=== PATIENT | male | born 1960 | race Caucasian/White ===

== ENCOUNTER 2017-05-25 11:25 | Emergency (ER) | payer OTHER ==
[~2017-05-25] VITALS: Ht 175.3 cm; Wt 104.3 kg
[~2017-05-25 11:25] MED LIST: BENADRYL25 MG PO; CLINDAMYCIN HC300 MG PO; FENOFIBRATE120 MG PO; FENOFIBRATE160 MG PO; HYDROXYZINE HCL25 MG PO; LISINOPRIL-HCT1 EAC1 PO; LISINOPRIL20 MG PO; MEDROL4 M1 PO; MELOXICAM15 MG PO; METFORMIN HCL500 MG PO; MOBIC7.5 MG PO; NAPROSYN500 MG PO; NAPROXEN500 MG PO; NICORETTE2 MG MM; NICOTINE PATCH1 EACH TD; NORCO 10-325 T1 EACH PO; OMEGA 3 1,0001 EACH PO; OXYCODONE HCL10 MG PO; PERCOCET 5-3251 EACH PO; PERCOCET 7.5-31 EACH PO; PHENERGAN25 MG RC; PROPRANOLOL HC120 MG PO; PROPRANOLOL HCL20 MG PO; ZOFRAN4 MG PO
--- NOTE | 2017-05-25 14:24 | EKG ---
[facility] [address] [facility] [place] [address] Signed Normal sinus rhythm Inferior infarct , possibly acute Possible Anterior infarct , age undetermined ACUTE [place] / STEMI Consider right ventricular involvement in acute inferior infarct Abnormal ECG No previous ECGs available Confirmed by PAUL SÁNCHEZ MD ([id number]) on 05/25/2017 2:23:52 PM Electronically Signed By: PAUL SÁNCHEZ MD 05/25/17 1424 PATIENT NAME: RICHELLEERIS MATT Electrocardiogram DATE OF : 58 PHYSICIAN: PAUL SÁNCHEZ MD REPORT #: [id number] REPORT IS CONFIDENTIAL AND NOT TO BE RELEASED WITHOUT AUTHORIZATION
--- NOTE | 2017-05-25 14:25 | EKG ---
[facility] [address] [facility] [place] [address] Signed Sinus tachycardia Inferior infarct (cited on or before 25-MAY-2017) Anterolateral infarct (cited on or before 25-MAY-2017) ACUTE [place] / STEMI Consider right ventricular involvement in acute inferior infarct Abnormal ECG When compared with ECG of 25-MAY-2017 11:30, (Unconfirmed) Serial changes of evolving Anterior infarct present Serial changes of evolving Anterolateral infarct present Confirmed by PAUL SÁNCHEZ MD ([id number]) on 05/25/2017 2:25:14 PM Electronically Signed By: PAUL SÁNCHEZ MD 05/25/17 1425 PATIENT NAME: ERIS PEOPLES Electrocardiogram DATE OF : 58 PHYSICIAN: PAUL SÁNCHEZ MD REPORT #: [id number] REPORT IS CONFIDENTIAL AND NOT TO BE RELEASED WITHOUT AUTHORIZATION
== END 2017-05-25 12:10 | disposition short-term general hospital (02) ==
LOC: ED 11:25
DX: I21.19 ST elevation (STEMI) myocardial infarction involving other coronary artery of inferior wall (principal); I10 Essential (primary) hypertension; E11.9 Type 2 diabetes mellitus without complications; F17.200 Nicotine dependence, unspecified, uncomplicated; Z88.0 Allergy status to penicillin; Z88.5 Allergy status to narcotic agent; Z88.8 Allergy status to other drugs, medicaments and biological substances; Z79.899 Other long term (current) drug therapy; Z79.84 Long term (current) use of oral hypoglycemic drugs; Z98.890 Other specified postprocedural states
CPT/HCPCS: 71010; 80053; 84484; 85025; 93005; 93010; 96374; 96375; 99285; J1644

== ENCOUNTER 2018-01-05 07:58 | Emergency (ER) | payer MEDICAID ==
[~2018-01-05] VITALS: Ht 175.3 cm; Wt 104.3 kg
[2018-01-05] MEDS ORDERED: LISINOPRIL2.5 MG PO (08:40)
[2018-01-05] MEDS ORDERED: CLOPIDOGREL75 MG PO (08:40)
[2018-01-05] MEDS ORDERED: METOPROLOL SUCC25 MG PO (08:41)
[2018-01-05] MEDS ORDERED: NITROGLYCERIN0.4 MG SL (08:41)
[2018-01-05] MEDS ORDERED: ATORVASTATIN CA80 MG PO (08:41)
--- NOTE | 2018-01-06 12:14 | EKG ---
[facility] [address] [facility] [place] [address] Signed Normal sinus rhythm with sinus arrhythmia Left axis deviation Inferior infarct (cited on or before 25-MAY-2017) Abnormal ECG When compared with ECG of 25-MAY-2017 11:36, ST no longer elevated in Inferior leads ST no longer depressed in Anterior leads T wave inversion no longer evident in Lateral leads Confirmed by PAUL SÁNCHEZ MD ([id number]) on 01/06/2018 12:13:58 PM Electronically Signed By: PAUL SÁNCHEZ MD 01/06/18 1214 PATIENT NAME: ERIS PEOPLES Electrocardiogram DATE OF : 58 PHYSICIAN: PAUL SÁNCHEZ MD REPORT #: [id number] REPORT IS CONFIDENTIAL AND NOT TO BE RELEASED WITHOUT AUTHORIZATION
== END 2018-01-05 11:17 | disposition home or self-care (01) ==
LOC: ED 07:58
DX: R07.89 Other chest pain (principal); I10 Essential (primary) hypertension; F17.200 Nicotine dependence, unspecified, uncomplicated; E11.9 Type 2 diabetes mellitus without complications; Z88.0 Allergy status to penicillin; Z88.5 Allergy status to narcotic agent; Z88.8 Allergy status to other drugs, medicaments and biological substances; Z79.899 Other long term (current) drug therapy
CPT/HCPCS: 71045; 80053; 84484; 85025; 93005; 93010; 96360; 99284; J7040

== ENCOUNTER 2018-02-02 08:41 | Emergency (ER) | payer OTHER ==
[~2018-02-02] VITALS: Ht 175.3 cm; Wt 104.3 kg
[~2018-02-02 08:41] MED LIST changes: +ATORVASTATIN CA80 MG PO; +CLOPIDOGREL75 MG PO; +LISINOPRIL2.5 MG PO; +METOPROLOL SUCC25 MG PO; +NITROGLYCERIN0.4 MG SL
[2018-02-02] MEDS ORDERED: BENADRYL25 MG PO (09:04)
[2018-02-02] MEDS ORDERED: LEVAQUIN500 MG PO (11:47)
--- NOTE | 2018-02-03 14:03 | EKG ---
[facility] [address] [facility] [place] [address] Signed Normal sinus rhythm Inferior infarct (cited on or before 25-MAY-2017) Abnormal ECG When compared with ECG of 05-JAN-2018 08:01, No significant change was found Confirmed by PAUL SÁNCHEZ MD ([id number]) on 02/03/2018 2:02:56 PM Electronically Signed By: PAUL SÁNCHEZ MD 02/03/18 1403 PATIENT NAME: ERIS PEOPLESYDE Electrocardiogram DATE OF : 58 PHYSICIAN: PAUL SÁNCHEZ MD REPORT #: [id number] REPORT IS CONFIDENTIAL AND NOT TO BE RELEASED WITHOUT AUTHORIZATION
== END 2018-02-02 11:50 | disposition home or self-care (01) ==
LOC: ED 08:41
DX: N39.0 Urinary tract infection, site not specified (principal); I10 Essential (primary) hypertension; F17.200 Nicotine dependence, unspecified, uncomplicated; Z88.0 Allergy status to penicillin; Z88.5 Allergy status to narcotic agent; Z79.899 Other long term (current) drug therapy
CPT/HCPCS: 70450; 71046; 73110; 80053; 81001; 84484; 85025; 87077; 87088; 87186; 93005; 93010; 99284; J7030

== ENCOUNTER 2018-03-10 06:14 | Emergency (ER) | payer OTHER ==
[~2018-03-10] VITALS: Ht 175.3 cm; Wt 104.3 kg
--- OUTSIDE RECORDS SUMMARY | ~2018-03-10 | XMS | Clinical Summary ---
Demographics + + + | Address | [address] | | | [place] [address] | + + + | Home Phone | | + + + | Preferred Language | Unknown | + + + | Marital Status | | + + + | [employer] Affiliation | 1013 | + + + | Race | Unknown | + + + | Ethnic Group | Unknown | + + + Author + + + | Author | [facility] | | | and [place] | + + + | Organization | [facility] | | | and [facility] | + + + | Address | Unknown | + + + | Phone | Unavailable | + + + Support + + + + + | Name | Relationship | Address | Phone | + + + + + | Karol Peoples | ECON | [place] | | | | | [phone] | | + + + + + Care Team Providers + +------+ + | Care Project Coordinator Rn Name | Role | Phone | + +------+ + | Jude Kevin NP | PP | | + +------+ + Allergies + + + + + + | Active Allergy | Reactions | Severity | Noted | Comments | | | | | Date | | + + + + + + | Hydrocodone | Nausea And Vomiting | High | 05/25/20 | | | | | | 17 | | + + + + + + | Penicillins | Anaphylaxis | High | 05/25/20 | | | | | | 17 | | + + + + + + Current Medications + + +--------+---------+------+------+-------+ | Prescription | Sig. | Disp. | Refills | Star | End | Statu | | | | | | t | Date | s | | | | | | Date | | | + + +--------+---------+------+------+-------+ | metFORMIN | Take 500 mg by mouth | | | | | Activ | | (GLUCOPHAGE-XR) 500 | daily (with | | | | | e | | mg 24 hr tablet | breakfast). | | | | | | + + +--------+---------+------+------+-------+ | diphenhydrAMINE | Take 25 mg by mouth | | | | | Activ | | (BENADRYL) 25 mg | nightly as needed | | | | | e | | tablet | for Itching. | | | | | | + + +--------+---------+------+------+-------+ | cetirizine | Take 5 mg by mouth | | | | | Activ | | (ZYRTEC) 5 mg tablet | Daily. | | | | | e | + + +--------+---------+------+------+-------+ | aspirin 81 mg | Take 1 tablet by | 30 | 11 | 11/0 | | Activ | | chewable tablet | mouth Daily. | tablet | | 6/20 | | e | | | | | | 17 | | | + + +--------+---------+------+------+-------+ | clopidogrel | Take 1 tablet by | 30 | 11 | 11/0 | | Activ | | (PLAVIX) 75 mg | mouth Daily. | tablet | | 6/20 | | e | | tablet | | | | 17 | | | + + +--------+---------+------+------+-------+ | nitroglycerin | Place 1 tablet under | 30 | 2 | 11/0 | | Activ | | (NITROSTAT) 0.4 mg | the tongue every 5 | tablet | | 5/20 | | e | | SL tablet | minutes as needed | | | 17 | | | | | for Chest pain | | | | | | | | (persistent chest | | | | | | | | pain). | | | | | | + + +--------+---------+------+------+-------+ | lisinopril | take 1 tablet by | 90 | 3 | 01/2 | | Activ | | (PRINIVIL,ZESTRIL) | mouth once daily | tablet | | 9/20 | | e | | 2.5 MG tablet | | | | 18 | | | + + +--------+---------+------+------+-------+ | atorvaSTATin | take 1 tablet by | 90 | 3 | 03/1 | | Activ | | (LIPITOR) 80 MG | mouth every evening | tablet | | 3/20 | | e | | tablet | | | | 18 | | | + + +--------+---------+------+------+-------+ | metoprolol | take 1 tablet by | 30 | 5 | 04/3 | | Activ | | succinate | mouth once daily | tablet | | 0/20 | | e | | (TOPROL-XL) 25 mg 24 | | | | 18 | | | | hr tablet | | | | | | | + + +--------+---------+------+------+-------+ Active Problems + + + | Problem | Noted Date | + + + | Acute [place] (HCC) | 07/02/2017 | + + + Family History + +------+ + + | Relation | Name | Status | Comments | + +------+ + + | Father | | | | + +------+ + + | Mother | | | | + +------+ + + Social History + +-------+ +--------+ + | Tobacco Use | Types | Packs/Day | Years | Date | | | | | Used | | + +-------+ +--------+ + | Former Smoker | | 1 | 15 | Quit: 05/25/2017 | + +-------+ +--------+ + + + | Tobacco Cessation: Counseling Given: Yes | + + + + +---------+ + | Alcohol Use | Drinks/We | oz/Week | Comments | | | ek | | | + + +---------+ + | No | | | | + + +---------+ + + + + | Sex Assigned at | Date Recorded | | | | + + + | Not on file | | + + + Last Filed Vital Signs + + + + | Vital Sign | Reading | Time Taken | + + + + | Blood Pressure | 106/64 | 07/03/2017 1002 PST | + + + + | Pulse | 60 | 07/03/2017 1002 PST | + + + + | Temperature | 36.9 C (98.4 F) | 05/27/2017 0722 PST | + + + + | Respiratory Rate | 14 | 07/03/2017 1002 PST | + + + + | Oxygen Saturation | 92% | 05/27/2017 0722 PST | + + + + | Inhaled Oxygen | - | - | | Concentration | | | + + + + | Weight | 101 kg (222 lb 10.6 | 07/03/2017 1002 PST | | | oz) | | + + + + | Height | 172.7 cm (5' 8") | 07/03/2017 1002 PST | + + + + | Body Mass Index | 33.86 | 07/03/20171001 PST | + + + + Plan of Treatment + + + + + | Health Maintenance | Due Date | Last Done | Comments | + + + + + | Hepatitis C | | | | | Screening | 0 | | | + + + + + | Vaccine: | | | | | Dtap/Tdap/Td (1 - | 9 | | | | Tdap) | | | | + + + + + | Colorectal Cancer | | | | | Screening | 0 | | | | (Colonoscopy) | | | | + + + + + | Vaccine: Influenza | | | | | (#1) | 8 | | | + + + + + Implants + +-------+-------+ +--------+--------+--------+ | Implanted | Type | Area | Manufacture | Device | Expira | Model | | | | | r | | tion | / | | | | | | Identi | Date | Serial | | | | | | fier | | / Lot | + +-------+-------+ +--------+--------+--------+ | 2.5mm X 20mm Promus Premier | Stent | N/A: | [employer] | | 06/24/ | / | | Drug Eluting Coronary Stent | | Heart | [employer] | | 2016 | / | | SystemImplanted: Qty: 1 on | | | [employer] | | | 910 | | 05/25/2017 by Jhonatan Evans, | | | | | | | | MD | | | | | | | + +-------+-------+ +--------+--------+--------+ | 2.5mm X 8mm Promus Premier | Stent | N/A: | [employer] | | 01/15/ | / | | Drug Eluting Coronary Stent | | Heart | [employer] | | 2017 | | | SystemImplanted: Qty: 1 on | | | [employer] | | | 602 | | 05/25/2017 by Jhonatan Evans, | | | | | | | | MD | | | | | | | + +-------+-------+ +--------+--------+--------+ Results Not on filefrom Last 3 Months Insurance + +--------+ +--------+ +---------+ | Payer | Benefi | Subscriber | Type | Phone | Address | | | t Plan | ID | | | | | | / | | | | | | | Group | | | | | + +--------+ +--------+ +---------+ | [employer] | [employer] | [id number] | Medica | [phone] | MEDICAID HMO | HEALTH | | id | [id number] | | | | MDCD | | | | | | | [place]MO [place] | | | | | + +--------+ +--------+ +---------+ + +--------+ +--------+ + + | Guarantor Name | Accoun | Relation to | Date | Phone | Billing Address | | | t Type | Patient | of | | | | | | | | | | + +--------+ +--------+ + + | ERIS PEOPLES | Person | Self [birth year] Home: | [address] | | | al/[place]orio | | 1961 | [phone] [place] [address] | | | jeremy | | | [phone] | | + +--------+ +--------+ + +
--- OUTSIDE RECORDS SUMMARY | ~2018-03-10 | XMS | Clinical Summary ---
Demographics + + + | Address | [address] | | | [place] [address] | + + + | Home Phone | | + + + | Preferred Language | Unknown | + + + | Marital Status | Single | + + + | Anabaptist Affiliation | [id number] | + + + | Race | Unknown | + + + | Ethnic Group | Unknown | + + + Author + + + | Author | [employer] | + + + | Organization | [facility] | + + + | Address | Unknown | + + + | Phone | Unavailable | + + + Support + + +---------+ + | Name | Relationship | Address | Phone | + + +---------+ + | Karol Peoples | ECON | Unknown | | + + +---------+ + Care Team Providers + +------+ + | Care Edge Stainer Machine Name | Role | Phone | + +------+ + | HerberthJude Magali SOSAP | PP | | + +------+ + Allergies + + + + + + | Active Allergy | Reactions | Severity | Noted | Comments | | | | | Date | | + + + + + + | Hydrocodone | Hives | High | 01/09/20 | | | | | | 18 | | + + + + + + | Penicillins | Hives | High | 01/09/20 | | | | | | 18 | | + + + + + + Current Medications + + +--------+---------+------+------+-------+ | Prescription | Sig. | Disp. | Refills | Star | End | Statu | | | | | | t | Date | s | | | | | | Date | | | + + +--------+---------+------+------+-------+ | aspirin 81 MG | Take 81 mg by mouth | | | | | Activ | | chewable tablet | daily with | | | | | e | | | breakfast. | | | | | | + + +--------+---------+------+------+-------+ | lisinopril | Take 2.5 mg by mouth | | | | | Activ | | (ZESTRIL) 2.5 MG | daily. | | | | | e | | tablet | | | | | | | + + +--------+---------+------+------+-------+ | clopidogrel | Take 75 mg by mouth | | | | | Activ | | (PLAVIX) 75 MG | daily. | | | | | e | | tablet | | | | | | | + + +--------+---------+------+------+-------+ | diphenhydrAMINE | Take 25 mg by mouth | | | | | Activ | | (BENADRYL) 25 mg | daily. | | | | | e | | capsule | | | | | | | + + +--------+---------+------+------+-------+ | metoprolol | Take 25 mg by mouth | | | | | Activ | | (TOPROL-XL) 25 MG 24 | daily. | | | | | e | | hr tablet | | | | | | | + + +--------+---------+------+------+-------+ | atorvastatin | Take 1 tablet by | 30 | 0 | 06/2 | 06/2 | Activ | | (LIPITOR) 40 MG | mouth nightly. | tablet | | 0/20 | 0/20 | e | | tablet | | | | 18 | 19 | | + + +--------+---------+------+------+-------+ Active Problems + + + | Problem | Noted Date | + + + | Essential hypertension | 01/08/2018 | + + + | Dyslipidemia | 01/08/2018 | + + + | CAD (coronary artery disease) | 01/08/2018 | + + + | Leukocytosis | 01/08/2018 | + + + Resolved Problems + + + + | Problem | Noted | Resolved | | | Date | Date | + + + + | Transient weakness of left lower extremity | 01/10/20 | | | | 18 | 8 | + + + + | Slurred speech | 01/10/20 | | | | 18 | 8 | + + + + | Acute cerebrovascular accident (CVA) ([facility]) | 01/09/20 | | | | 18 | 8 | + + + + Encounters +--------+ + + + + | Date | Type | Specialty | Care Team | Description | +--------+ + + + + | [facility] Hospital | | Estefania Garcia, | Acute left-sided | | 2018 - | Encounter | | Tommy Pabon DO | weakness (Primary | | | | | Jamie Castro MD | Dx); Acute embolic | | | | | | stroke (HCC) | | 2018 | | | | | +--------+ + + + + +---+ + | | Discharge | | | Summaries | | | - Castro, | | | MD Jamie | | | - | | | 01/09/2018 | | | 2:13 PM | | | PDT | | | Formatting | | | of this | | | note may be | | | different | | | from the | | | original.Pa | | | tient: | | | Eris Malave | | | Richelle | | | : | | | 1960 | | | MRN: | | | [id number] | | | te of | | | Admission: | | | 01/08/2018 | | | Date of | | | Discharge: | | | 01/09/2018 | | | Treatment | | | Team: | | | Admitting | | | Provider: | | | Tommy Saez, | | | DODischargi | | | ng | | | Provider: | | | Jamie | | | Matthew, | | | MDDischarge | | | Diagnoses: | | | Principal | | | Problem | | | (Resolved): | | | Slurred | | | speechActiv | | | e Problems: | | | Essential | | | | | | hypertensio | | | n | | | Dyslipidemi | | | a CAD | | | (coronary | | | artery | | | disease) | | | Leukocytosi | | | sResolved | | | Problems: | | | Transient | | | weakness of | | | left lower | | | extremity | | | | | | Procedures | | | Performed:C | | | hief | | | Complaint:C | | | hest Pain | | | (radiates | | | to left arm | | | heaviness | | | intermitten | | | t since | | | sunday and | | | worked up | | | on sunday | | | in | | | [place]. | | | everything | | | negative | | | and sent | | | home); | | | Headache; | | | and | | | Extremity | | | Weakness | | | (left arm | | | since | | | sunday, | | | increasing | | | weakness)Ho | | | spital | | | Course: | | | Eris C | | | Richelle is | | | a 57 y.o. | | | male with | | | htn, CAD | | | with | | | stents, hld | | | who was | | | admitted on | | | 01/08/2018 | | | with | | | complaints | | | of slurred | | | speech and | | | left sided | | | weakness. | | | Apparently | | | the | | | symptoms | | | had began | | | about 3 | | | days ago. | | | He also was | | | seen in | | | j[facility] | | | for chest | | | pain | | | recently | | | and [place] was | | | ruled out | | | and patient | | | sent home. | | | He | | | continued | | | to have | | | left sided | | | weakness | | | and slurred | | | speech and | | | was | | | evaluted | | | int he ER. | | | No prior | | | history of | | | cva | | | previously. | | | Patient | | | underwent | | | ct head | | | which was | | | negative | | | for acute | | | process. | | | MRI/MRA | | | were | | | essentially | | | normal and | | | no foci of | | | ischemia | | | was noted. | | | US carotid | | | demonstrate | | | d no | | | significant | | | stenosis | | | b/l. This | | | morning the | | | patients | | | symptoms | | | resolved. | | | He did have | | | a slight | | | left facial | | | droop, but | | | this has | | | improved. | | | Speech | | | therapy | | | evaluated | | | the patient | | | and he was | | | able to | | | tolerate a | | | diet. He | | | was | | | evaluated | | | by physical | | | therapy | | | and was | | | safe to be | | | discharge | | | home.Echoca | | | rdiogram is | | | pending | | | and he will | | | follow up | | | results as | | | outpatient. | | | Discharge | | | Exam and | | | Data:Vital | | | Signs:BP | | | 120/68 (BP | | | Location: | | | Left upper | | | arm) | | | | Pulse 62 | | | | Temp 97.6 | | | F (36.4 | | | C) (Oral) | | | | Resp 16 | | | | Ht | | | 1.727 m (5' | | | 8") | Wt | | | 104.8 kg | | | (231 lb) | | | | SpO2 93% | | | | BMI 35.12 | | | kg/m I&O | | | Last 3 | | | Shifts: | | | 01/07 1900 | | | - /20 | | | 0659In: 0 | | | Out: 200 | | | [Urine:200] | | | Physical | | | Examination | | | : | | | Constitutio | | | nal Appears | | | | | | well-develo | | | ped and | | | well-nouris | | | hed. HEENT: | | | Neck | | | supple, no | | | JVD, non | | | icteric | | | sclera.Card | | | iovascular: | | | Normal | | | rate, | | | regular | | | rhythm, | | | normal | | | heart | | | sounds with | | | S1 and S2. | | | Exam | | | reveals no | | | appreciated | | | gallop or | | | friction | | | rub. No | | | murmur | | | heard.Pulmo | | | nary/Chest: | | | Effort | | | normal and | | | breath | | | sounds | | | normal. No | | | stridor. No | | | | | | respiratory | | | distress. | | | no | | | wheezes. no | | | rales. | | | exhibits no | | | | | | tenderness. | | | Abdominal: | | | Soft. | | | Bowel | | | sounds are | | | normal. | | | exhibits no | | | distension | | | and no | | | mass. There | | | is no | | | tenderness. | | | There is | | | no rebound | | | and no | | | guarding. | | | Extremeties | | | /Musculoske | | | letal: | | | Normal | | | range of | | | motion.exhi | | | bits no | | | tenderness. | | | exhibits | | | no edema. | | | | | | Neurologica | | | l: Alert | | | and | | | oriented to | | | person, | | | place, and | | | time. No | | | cranial | | | nerve | | | deficit. | | | Exhibits | | | normal | | | muscle | | | tone. | | | Coordinatio | | | n | | | normal.Skin | | | : Skin is | | | warm and | | | dry. No | | | rash noted. | | | No | | | erythema. | | | No pallor. | | | Psychiatric | | | : Has a | | | normal mood | | | and affect | | | given | | | situation. | | | Recent Labs | | | Recent | | | LabsLab | | | | | | 7 | | | | | | 5 WBC 10.74 | | | 14.08* HGB | | | 15.8 17.0 | | | HCT 45.1 | | | 49.5 PLT | | | 176 210 | | | Recent | | | LabsLab | | | | | | 7 | | | | | | 5 NA 140 | | | 145 K 4.0 | | | 3.6 CL 108 | | | 108 CO2 24 | | | 25 BUN 11 | | | 10 | | | CREATININE | | | 0.8 0.88 | | | Recent | | | LabsLab | | | 24 | | | 5 INR 0.9 | | | Results | | | No | | | results | | | found for | | | the last 72 | | | hours. | | | Recent | | | Radiology | | | ResultsXr | | | Chest Pa | | | And | | | LateralResu | | | lt Date: | | | 01/08/2018No | | | | | | radiographi | | | c evidence | | | of acute | | | cardiopulmo | | | nary | | | disease. | | | Electronica | | | lly signed | | | by | | | Pushpender | | | Barton on | | | 01/08/2018 | | | 1:21 PMCt | | | Head | | | Non-contras | | | tResult | | | Date: | | | . | | | Brain is | | | negative | | | for acute | | | pathology. | | | Electronica | | | lly signed | | | by Ranjit T | | | Sameer, | | | MD on | | | 01/08/2018 | | | 1:28 | | | PMUltrasoun | | | d Carotid | | | Doppler | | | BilateralRe | | | sult Date: | | | . | | | Mild | | | bilateral | | | carotid | | | plaquing | | | without | | | significant | | | stenosis. | | | 2. | | | Antegrade | | | flow in | | | both | | | vertebral | | | arteries. | | | Validated | | | velocity | | | measurement | | | s with | | | angiographi | | | c | | | measurement | | | s and | | | velocity | | | criteria | | | are | | | extrapolate | | | d from | | | diameter | | | data as | | | defined by | | | the Society | | | of | | | Radiologist | | | s in | | | Ultrasound | | | Consensus | | | Conference | | | Radiology | | | 2002; | | | [phone] | | | . RADIA | | | Electronica | | | lly signed | | | by Ryne | | | MD Jey | | | on Jose Elias 20 | | | 2018 | | | 6:42AM | | | Referring | | | Provider | | | Line: | | | [phone] | | | 5SITE ID: | | | [id number] | | | Brain | | | Without | | | Contrast | | | And Mra | | | HeadResult | | | Date: | | | 01/08/20181. | | | Normal | | | MRI | | | examination | | | of the | | | brain | | | without | | | contrast. | | | 2. MRA of | | | the | | | cerebral | | | arterial | | | system | | | shows no | | | stenosis, | | | occlusion, | | | aneurysm or | | | | | | vasculitis. | | | Absence | | | of the left | | | posterior | | | communicati | | | ng artery | | | and | | | predominant | | | ly | | | origin of | | | the right | | | posterior | | | cerebral | | | artery | | | noted. | | | Electronica | | | lly signed | | | by Edward | | | Iuliano, DO | | | on | | | 01/08/2018 | | | 9:52 | | | PMOutstandi | | | ng Issues: | | | Patient to | | | follow | | | with pcp | | | regarding | | | echocardiog | | | anthony | | | resultsDisc | | | harge | | | Information | | | :Follow | | | up:Jude R | | | [place], | | | [id number] | | | [place] | | | [address] | | | [place] | | | [phone] | | [phone] | | | ule an | | | appointment | | | as soon as | | | possible | | | for a visit | | | in 1 | | | weeks/p | | | left side | | | weakness | | | and slurred | | | speech | | | resolved. | | | Normal MRI. | | | Hospital | | | follow up. | | | Medication | | | List | | | CHANGE how | | | you take | | | these | | | medications | | | | | | atorvastati | | | n 40 MG | | | tabletQTY: | | | 30 | | | tabletRefil | | | ls: | | | 0Commonly | | | known as: | | | LIPITORTake | | | 1 tablet | | | by mouth | | | nightly.Wha | | | t | | | changed: | | | medication | | | strength | | | how much to | | | take | | | CONTINUE | | | taking | | | these | | | medications | | | aspirin | | | 81 MG | | | chewable | | | tabletRefil | | | ls: 0 | | | clopidogrel | | | 75 MG | | | tabletRefil | | | ls: | | | 0Commonly | | | known as: | | | PLAVIX | | | diphenhydrA | | | MINE 25 mg | | | capsuleRefi | | | lls: | | | 0Commonly | | | known as: | | | BENADRYL | | | lisinopril | | | 2.5 MG | | | tabletRefil | | | ls: | | | 0Commonly | | | known as: | | | ZESTRIL | | | metoprolol | | | 25 MG 24 hr | | | | | | tabletRefil | | | ls: | | | 0Commonly | | | known as: | | | TOPROL-XL | | | You might | | | also be | | | taking | | | other | | | medications | | | not listed | | | above. If | | | you have | | | questions | | | about any | | | of your | | | other | | | medications | | | , talk to | | | the person | | | who | | | prescribed | | | them or | | | your | | | Primary | | | Care | | | Provider. | | | STOP | | | taking | | | these | | | medications | | | | | | nitroGLYCER | | | IN 0.4 MG | | | SL | | | tabletCommo | | | nly known | | | as: | | | NITROSTAT | | | Where to | | | Get Your | | | Medications | | | You can | | | get these | | | medications | | | from any | | | pharmacy | | | Bring a | | | paper | | | prescriptio | | | n for each | | | of these | | | medications | | | | | | atorvastati | | | n 40 MG | | | tablet | | | Disposition | | | : | | | HomeConditi | | | on: | | | StableCode | | | Status: | | | DNR/DNIDisc | | | harge took | | | 51 minutes, | | | to include | | | final | | | examination | | | , | | | discussion | | | of | | | admission, | | | and | | | preparation | | | of | | | prescriptio | | | ns, | | | instruction | | | s for | | | on-going | | | care, | | | follow-up | | | and | | | documentati | | | on of | | | discharge | | | summary.Far | | | licea | | | Matthew, | | | MD5:42 PM | +---+ + +--------+ +---+---+---+ | 01/08/ | Procedure | | | | | 2017 | Pass | | | | +--------+ +---+---+---+ from Last 3 Months Social History + +-------+ +--------+------+ | Tobacco Use | Types | Packs/Day | Years | Date | | | | | Used | | + +-------+ +--------+------+ | Current Every Day | | 0.5 | 40 | | | Smoker | | | | | + +-------+ +--------+------+ + +---+---+---+ | Smokeless Tobacco: | | | | | Never Used | | | | + +---+---+---+ + + | Tobacco Cessation: Ready to Quit: No; Counseling Given: Yes | + + + [...] + + + | Blood Pressure | 120/68 | 01/09/2018 11:46 AM PDT | + + + + | Pulse | 62 | 01/09/2018 11:46 AM PDT | + + + + | Temperature | 36.4 C (97.6 F) | 01/09/2018 11:46 AM PDT | + + + + | Respiratory Rate | 16 | 01/09/2018 11:46 AM PDT | + + + + | Oxygen Saturation | 93% | 01/09/2018 11:46 AM PDT | + + + + | Inhaled Oxygen | - | - | | Concentration | | | + + + + | Weight | 104.8 kg (231 lb) | 01/08/2018 5:00 PM PDT | + + + + | Height | 172.7 cm (5' 8") | 01/08/2018 7:19 PM PDT | + + + + | Body Mass Index | 35.12 | 01/08/2018 5:00 PM PDT | + + + + Plan of Treatment +--------+ + + + + | Date | Type | Specialty | Care Team | Description | +--------+ + + + + | 03/19/ | Initial | | Chris Schneider, | | | 2018 | consult | | MD [address] | | | | | | [place], | | | | | | [place] [address] | | | | | | [phone] | | | | | | | | +--------+ + + + + + + + + + | Health Maintenance | Due Date | Last Done | Comments | + + + + + | Vaccine: | 02/06/197 | | | | Dtap/Tdap/Td (1 - | 9 | | | | Tdap) | | | | + + + + + | Vaccine: | | | | | Pneumococcal 19-64 | 9 | | | | (PPSV23 only) Medium | | | | | Risk (1 of 1 - | | | | | PPSV23) | | | | + + + + + | Colon Cancer | | | | | Screening | 0 | | | | (Colonoscopy) | | | | + + + + + | Vaccine: Influenza | | | | | (#1) | 8 | | | + + + + + Procedures + +--------+ + + + | Procedure Name | Priori | Date/Time | Associated Diagnosis | Comments | | | ty | | | | + +--------+ + + + | URINE MICROSCOPIC | Timed | 01/09/2018 | | Results for this | | ONLY | | 11:48 AM | | procedure are in the | | | | PDT | | results section. | + +--------+ + + + | URINALYSIS (REFLEX | Timed | 01/09/2018 | | Results for this | | TO MICRO) | | 11:48 AM | | procedure are in the | | | | PDT | | results section. | + +--------+ + + + | ECHO CARDIAC ADULT | Routin | 01/09/2018 | | Results for this | | COMPLETE WITH BUBBLE | e | 11:20 AM | | procedure are in the | | STUDY | | PDT | | results section. | + +--------+ + + + | US CAROTID DOPPLER, | Routin | 01/09/2018 | | Results for this | | BILATERAL | e | 6:03 AM | | procedure are in the | | | | PDT | | results section. | + +--------+ + + + | MAGNESIUM | Routin | 01/09/2018 | | Results for this | | | e - AM | 4:57 AM | | procedure are in the | | | | PDT | | results section. | + +--------+ + + + | LIPID PANEL | Routin | 01/09/2018 | | Results for this | | | e - AM | 4:57 AM | | procedure are in the | | | | PDT | | results section. | + +--------+ + + + | HEMOGLOBIN A1C | Routin | 01/09/2018 | | Results for this | | | e - AM | 4:57 AM | | procedure are in the | | | | PDT | | results section. | + +--------+ + + + | COMPREHENSIVE | Routin | 01/09/2018 | | Results for this | | METABOLIC PANEL | e - AM | 4:57 AM | | procedure are in the | | | | PDT | | results section. | + +--------+ + + + | CBC W/AUTO DIFF | Routin | 01/09/2018 | | Results for this | | (REFLEX TO MANUAL) | e - AM | 4:57 AM | | procedure are in the | | | | PDT | | results section. | + +--------+ + + + | MRI BRAIN WO AND MRA | Routin | 01/08/2018 | | Results for this | | HEAD | e | 9:16 PM | | procedure are in the | | | | PDT | | results section. | + +--------+ + + + | CT HEAD WO CONTRAST | [facility] | 01/08/2018 | | Results for this | | | | 1:27 PM | | procedure are in the | | | | PDT | | results section. | + +--------+ + + + | XR CHEST 2 VIEW | [facility] | 01/08/2018 | | Results for this | | FRONTAL AND LATERAL | | 1:19 PM | | procedure are in the | | | | PDT | | results section. | + +--------+ + + + | TROPONIN I | STAT | 01/08/2018 | | Results for this | | | | 12:45 PM | | procedure are in the | | | | PDT | | results section. | + +--------+ + + + | [facility] CARD PANEL W/O | STAT | 01/08/2018 | | Results for this | | TRP (ED ONLY) | | 12:45 PM | | procedure are in the | | | | PDT | | results section. | + +--------+ + + + | EKG 12 LEAD UNIT | Routin | 01/08/2018 | | Results for this | | PERFORMED | e | 12:40 PM | | procedure are in the | | | | PDT | | results section. | + +--------+ + + + from Last 3 Months Results Urine microscopic only (01/09/2018 11:48 AM) + + + + + | Component | Value | Ref Range | Performed At | + + + + + | WBC | 50-100Comment: | 0 - 5 /hpf | [facility] | | | | | [facility] | + + + + + | RBC | 26-49 | 0 - 2 /hpf | [facility] | | | | | [facility] | + + + + + | EPITHELIAL | 3-5 | /lpf | [facility] | | | | | [facility] | + + + + + | BACTERIA | 1+ (A) | NONE SEEN | [facility] | | | | | [facility] | + + + + + | Yeast, UA | 2+ | /hpf | [facility] | | | | | [facility] | + + + + + | Mucus, UA | 1+Comment: Testing | | [facility] | | | performed at [facility], [address] | | LABORATORY | | | [place], | | | | | [place] [address] | | | + + + + + + + + + + | Performing | Address | City/State/Zipcode | Phone Number | | Organization | | | | + + + + + | [facility] | [address] | [place] [address] | [phone] | | LABORATORY | [address] | | | + + + + + Urinalysis (01/09/2018 11:48 AM) + + + + + | Component | Value | Ref Range | Performed At | + + + + + | COLOR UA | YELLOW | | [facility] | | | | | LAB[facility]ATORY | + + + + + | CLARITY | HAZY | | [facility] | | | | | [facility] | + + + + + | Specific [place], UA | 1.006 | 1.002 - 1.030 | [facility] | | | | | [facility] | + + + + + | LEUKOCYTE ESTERASE | LARGE (A)Comment: | NEGATIVE | [facility] | | | | | [facility] | + + + + + | NITRITE | NEGATIVE | NEGATIVE | [facility] | | | | | [facility] | + + + + + | UROBILINOGEN | NORMAL | <1.1 mg/dL | [facility] | | | | | [facility] | + + + + + | PROTEIN | NEGATIVE | NEGATIVE mg/dL | [facility] | | | | | [facility] | + + + + + | PH,URINE | 6.0 | 5.0 - 8.0 | [facility] | | | | | [facility] | + + + + + | BLOOD | MODERATE (A) | NEGATIVE | [facility] | | | | | [facility] | + + + + + | KETONES | NEGATIVE | NEGATIVE mg/dL | [facility] | | | | | [facility] | + + + + + | BILIRUBIN | NEGATIVE | NEGATIVE | [facility] | | | | | [facility] | + + + + + | GLUCOSE | NEGATIVEComment: Testing | NEGATIVE mg/dL | [facility] | | | performed at [facility], [address] | LABORAT[address] | | | [address], | | | | | [place] [address] | | | + + + + + + + | Specimen | + + | Urine - Urine, Clean | | Catch | + + + + + + + | Performing | Address | City/State/Zipcode | Phone Number | | Organization | | | | + + + + + | [facility] | [address] | [place] [address] | [phone] | | LABORATORY | [place] | | | + + + + + Echo Cardiac Adult with Bubble Study (01/09/2018 11:20 AM) + +-------+ + + | Component | Value | Ref Range | Performed At | + +-------+ + + | LV EF | 70 | 50 - 70 % | [facility] | | | | | RADIOLOGY | + +-------+ + + + + + | Impressions | Performed At | + + + | 1. Overall left ventricular systolic function is normal with, an EF | [facility] | | between 65 - 70 %. 2. Mild mitral regurgitation is present. 3. Right | RADIOLOGY | | ventricular systolic pressure (pulmonary artery systolic pressure) is | | | normal at < 35 mmHg. 4. No clot visualized | | + + + + + + | Narrative | Performed At | + + + | Patient Name: ERIS PEOPLES Date of : 1960 | [facility] | | Performing Physician: Ana Stokes MD | RADIOLOGY | | | | | INDICATIONS STROKE ?? HX CAD RECENT STENT [place] | | | CONCLUSIONS 1. Overall left ventricular systolic | | | function is normal with, an EF between 65 - 70 %. 2. Mild mitral | | | regurgitation is present. 3. Right ventricular systolic pressure | | | (pulmonary artery systolic pressure) is normal at < 35 mmHg. 4. No | | | clot visualized FINDINGS -------- ECG rhythm: Sinus rhythm. | | | Study: A 2-dimensional transthoracic echocardiogram with m-mode, | | | spectral and color flow Doppler was perfomed. Study: This was a | | | technically adequate study. Left Ventricle: Overall left ventricular | | | systolic function is normal with, an EF between 65 - 70 %. Left | | | Ventricle: The left ventricle cavity size is normal. Left Ventricle: | | | Left ventricular wall thickness is normal. Right Ventricle: The | | | right ventricle is normal in size and function. Left Atrium: The left | | | atrial size is normal Left Atrium: , and the LA measures 3.7cm. | | | Right Atrium: The right atrium is normal in size. Aortic Valve: The | | | aortic valve is trileaflet, and appears anatomically normal. No aortic | | | stenosis or regurgitation. Mitral Valve: The mitral valve is normal. | | | Mitral Valve: Mild mitral regurgitation is present. Mitral Valve: | | | Mild mitral annular calcification present. Tricuspid Valve: The | | | tricuspid valve appears structurally normal. Tricuspid Valve: Trace | | | tricuspid regurgitation present. Tricuspid Valve: Right ventricular | | | systolic pressure (pulmonary artery systolic pressure) is normal at < | | | 35 mmHg. Pulmonic Valve: Pulmonic valve appears structurally normal. | | | Pulmonic Valve: Trace pulmonic regurgitation. Pericardium: There | | | is no pericardial effusion. IVC/Hepatic Veins: The IVC is normal | | | size (1.5-2.5cm) and collapses >50% with sniff, consistent with | | | central venous pressures of 5-10mmHg. Mass: No mass visualized | | | Thrombus: No clot visualized Contrast: Contrast study was performed | | | with 2 iv injections of 8 ccs of agitated normal saline, at rest, and | | | with cough. Contrast: Appears negative for right to left shunt. | | | MEASUREMENTS RA Area: 15.10 cm2 Ao asc: 3.03 | | | cm Ao sinus: 3.[address] junct: 2.69 cm IVC: 2.14 cm | | | LA Major: 4.26 cm EDV(Teich): 107.37 ml IVSd: 1.01 cm | | | LVIDd: 4.79 cm LVPWd: 0.75 cm LVOT Diam: 2.15 cm | | | %FS: 39.22 % EF(Teich): 69.61 % ESV(Teich): 32.63 ml | | | IVSs: 1.26 cm LVIDs: 2.91 cm LVPWs: 1.40 cm | | | SV(Teich): 74.74 ml RA Major: 4.29 cm RVIDd: 3.20 cm | | | LAESV(A-L): 32.10 ml LAESV Index (A-L): 14.79 ml/m2 LAAs | | | A2C: 13.39 cm2 LAESV A-L A2C: 31.09 ml LALs A2C: 4.89 cm | | | LAAs A4C: 11.87 cm2 LAESV A-L A4C: 28.45 ml LALs A4C: | | | 4.20 cm Ao Diam: 3.27 cm AV Cusp: 2.20 cm LA Diam: 3.69 | | | cm LA/Ao: 1.12 TAPSE: 2.53 cm IVC diameter: 2.00 cm | | | IVC collapse: 0.89 cm IVC % collapse: 53.55 % AV maxPG: | | | 5.23 mmHg AV meanP.94 mmHg AV Vmax: 1.14 m/s AV | | | Vmean: 0.80 m/s AV VTI: 27.23 cm TIMOTHY Vmax: 3.45 cm2 TIMOTHY | | | (VTI): 3.20 cm2 AVAI Vmax: 0.00 cm2/m2 AVAI (VTI): 0.00 | | | cm2/m2 LVOT maxP.67 mmHg LVOT meanP.28 mmHg LVSI | | | Dopp: 40.28 ml/m2 LVSV Dopp: 87.41 ml LVOT Vmax: 1.08 | | | m/s LVOT Vmean: 0.70 m/s LVOT VTI: 23.91 cm MCO: 468.12 | | | ms MV A Asaf: 0.93 m/s MV DecT: 199.95 ms MV E Asaf: | | | 1.11 m/s MV E/A Ratio: 1.18 MV PHT: 62.34 ms MVA By | | | PHT: 3.52 cm2 MV A Dur: 137.01 ms Septal e': 0.09 m/s | | | Septal E/e': 12.00 Lateral e': 0.11 m/s Lateral E/e': | | | 9.98 P Vein A: 0.27 m/s P Vein A Dur: 85.63 ms P Vein | | | D: 0.67 m/s P Vein S/D Ratio: 0.90 P Vein S: 0.60 m/s | | | HR: 60.22 BPM PV maxP.45 mmHg PV meanP.34 mmHg | | | PV Vmax: 0.78 m/s PV Vmean: 0.54 m/s PV VTI: 18.31 cm | | | RV S': 0.10 m/s TV A Asaf: 0.40 m/s TV Dec [place]: 1.66 | | | m/s2 TV Dec Time: 333.82 ms TV E Asaf: 0.55 m/s TV E/A | | | Ratio: 1.38 Music Box Mechanic: EVANGELINA Authenticated by: Ana | | | Divya BA Report Date/Time: 01-09-2018 19:9:14 | | + + + + ---------+ | Procedure Note | + ---------+ | Layton, Rad Results In - 01/09/2018 7:09 PM PDT Patient Name: Luiz PEOPLES of | | : 1960Accession: [id number] Physician: Ana Stokes MD | | INDICATIONS STR | | JACQUI ?? HX CAD RECENT STENT WALLA WALLACONCLUSIONS 1. Overall left ventricular | | systolic function is normal with, an EF between 65 - 70 %.2. Mild mitral regurgitation | | is present.3. Right ventricular systolic pressure (pulmonary artery systolic pressure) | | is normal at < 35 mmHg.4. No clot visualizedFINDINGS--------ECG rhythm: Sinus | | rhythm.Study: A 2-dimensional transthoracic echocardiogram with m-mode, spectral and | | color flow Doppler was perfomed. Study: This was a technically adequate study.Left | | Ventricle: Overall left ventricular systolic function is normal with, an EF between 65 - | | 70 %. Left Ventricle: The left ventricle cavity size is normal. Left Ventricle: Left | | ventricular wall thickness is normal.Right Ventricle: The right ventricle is normal in | | size and function.Left Atrium: The left atrial size is normalLeft Atrium: , and the LA | | measures 3.7cm.Right Atrium: The right atrium is normal in size. Aortic Valve: The | | aortic valve is trileaflet, and appears anatomically normal. No aortic stenosis or | | regurgitation.Mitral Valve: The mitral valve is normal. Mitral Valve: Mild mitral | | regurgitation is present. Mitral Valve: Mild mitral annular calcification | | present.Tricuspid Valve: The tricuspid valve appears structurally normal. Tricuspid | | Valve: Trace tricuspid regurgitation present. Tricuspid Valve: Right ventricular | | systolic pressure (pulmonary artery systolic pressure) is normal at < 35 mmHg.Pulmonic | | Valve: Pulmonic valve appears structurally normal. Pulmonic Valve: Trace pulmonic | | regurgitation.Pericardium: There is no pericardial effusion.IVC/Hepatic Veins: The IVC | | is normal size (1.5-2.5cm) and collapses >50% with sniff, consistent with central venous | | pressures of 5-10mmHg.Mass: No mass visualizedThrombus: No clot visualizedContrast: | | Contrast study was performed with 2 iv injections of 8 ccs of agitated normal saline, at | | rest, and with cough. Contrast: Appears negative for right to left | | shunt.MEASUREMENTS RA Area: 15.10 cm2Ao asc: 3.03 cmAo sinus: 3.06 | | cmAo st junct: 2.69 cmIVC: 2.14 cmLA Major: 4.26 cmEDV(Teich): 107.37 mlIVSd: | | 1.01 cmLVIDd: 4.79 cmLVPWd: 0.75 cmLVOT Diam: 2.15 cm%FS: 39.22 %EF(Teich): | | 69.61 %ESV(Teich): 32.63 mlIVSs: 1.26 cmLVIDs: 2.91 cmLVPWs: 1.40 cmSV(Teich): | | 74.74 mlRA Major: 4.29 cmRVIDd: 3.20 cmLAESV(A-L): 32.10 mlLAESV Index (A-L): | | 14.79 ml/m2LAAs A2C: 13.39 [id number] A-L A2C: 31.09 mlLALs A2C: 4.89 cmLAAs A4C: | | 11.87 [id number] A-L A4C: 28.45 mlLALs A4C: 4.20 cmAo Diam: 3.27 cmAV Cusp: 2.20 | | cmLA Diam: 3.69 cmLA/Ao: 1.12 TAPSE: 2.53 cmIVC diameter: 2.00 cmIVC collapse: | | 0.89 cmIVC % collapse: 53.55 %AV maxP.23 mmHgAV meanP.94 mmHgAV Vmax: | | 1.14 m/Mukul Vmean: 0.80 m/Mukul VTI: 27.23 cmAVA Vmax: 3.45 cm2AVA (VTI): 3.20 | | [id number] Vmax: 0.00 cm2/m2AVAI (VTI): 0.00 cm2/m2LVOT maxP.67 mmHgLVOT meanPG: | | 2.28 mmHgLVSI Dopp: 40.28 ml/m2LVSV Dopp: 87.41 mlLVOT Vmax: 1.08 m/sLVOT Vmean: | | 0.70 m/sLVOT VTI: 23.91 cmMCO: 468.12 msMV A Asaf: 0.93 m/sMV DecT: 199.95 | | msMV E Asaf: 1.11 m/sMV E/A Ratio: 1.18 MV PHT: 62.34 msMVA By PHT: 3.52 cm2MV A | | Dur: 137.01 msSeptal e': 0.09 m/sSeptal E/e': 12.00 Lateral e': 0.11 m/sLateral | | E/e': 9.98 P Vein A: 0.27 m/sP Vein A Dur: 85.63 msP Vein D: 0.67 m/sP Vein S/D | | Ratio: 0.90 P Vein S: 0.60 m/sHR: 60.22 BPMPV maxP.45 mmHgPV meanP.34 | | mmHgPV Vmax: 0.78 m/sPV Vmean: 0.54 m/sPV VTI: 18.31 cmRV S': 0.10 m/sTV A Asaf: | | 0.40 m/sTV Dec [place]: 1.66 m/s2TV Dec Time: 333.82 msTV E Asaf: 0.55 m/sTV E/A | | Ratio: 1.38 Music Box Mechanic: [email or web address] by: Ana Stokes MDReport Date/Time: | | 01-09-2018 19:9:14IMPRESSION:1. Overall left ventricular systolic function is normal | | with, an EF between 65 - 70 %.2. Mild mitral regurgitation is present.3. Right | | ventricular systolic pressure (pulmonary artery systolic pressure) is normal at < 35 | | mmHg.4. No clot visualized | |Ao asc: 3.03 cm | |Ao sinus: 3.06 cm | |Ao st junct: 2.69 cm | |IVC: 2.14 cm | |LA Major: 4.26 cm | |EDV(Teich): 107.37 ml | |IVSd: 1.01 cm | |LVIDd: 4.79 cm | |LVPWd: 0.75 cm | |LVOT Diam: 2.15 cm | |%FS: 39.22 % | |EF(Teich): 69.61 % | |ESV(Teich): 32.63 ml | |IVSs: 1.26 cm | |LVIDs: 2.91 cm | |LVPWs: 1.40 cm | |SV(Teich): 74.74 ml | |RA Major: 4.29 cm | |RVIDd: 3.20 cm | |LAESV(A-L): 32.10 ml | |LAESV Index (A-L): 14.79 ml/m2 | |LAAs A2C: 13.39 cm2 | |LAESV A-L A2C: 31.09 ml | |LALs A2C: 4.89 cm | |LAAs A4C: 11.87 cm2 | |LAESV A-L A4C: 28.45 ml | |LALs A4C: 4.20 cm | |Ao Diam: 3.27 cm | |AV Cusp: 2.20 cm | |LA Diam: 3.69 cm | |LA/Ao: 1.12 | |TAPSE: 2.53 cm | |IVC diameter: 2.00 cm | |IVC collapse: 0.89 cm | |IVC % collapse: 53.55 % | |AV maxP.23 mmHg | |AV meanP.94 mmHg | |AV Vmax: 1.14 m/s | |AV Vmean: 0.80 m/s | |AV VTI: 27.23 cm | |TIMOTHY Vmax: 3.45 cm2 | |TIMOTHY (VTI): 3.20 cm2 | |AVAI Vmax: 0.00 cm2/m2 | |AVAI (VTI): 0.00 cm2/m2 | |LVOT maxP.67 mmHg | |LVOT meanP.28 mmHg | |LVSI Dopp: 40.28 ml/m2 | |LVSV Dopp: 87.41 ml | |LVOT Vmax: 1.08 m/s | |LVOT Vmean: 0.70 m/s | |LVOT VTI: 23.91 cm | |MCO: 468.12 ms | |MV A Asaf: 0.93 m/s | |MV DecT: 199.95 ms | |MV E Asaf: 1.11 m/s | |MV E/A Ratio: 1.18 | |MV PHT: 62.34 ms | |MVA By PHT: 3.52 cm2 | |MV A Dur: 137.01 ms | |Septal e': 0.09 m/s | |Septal E/e': 12.00 | |Lateral e': 0.11 m/s | |Lateral E/e': 9.98 | |P Vein A: 0.27 m/s | |P Vein A Dur: 85.63 ms | |P Vein D: 0.67 m/s | |P Vein S/D Ratio: 0.90 | |P Vein S: 0.60 m/s | |HR: 60.22 BPM | |PV maxP.45 mmHg | |PV meanP.34 mmHg | |PV Vmax: 0.78 m/s | |PV Vmean: 0.54 m/s | |PV VTI: 18.31 cm | |RV S': 0.10 m/s | |TV A Asaf: 0.40 m/s | |TV Dec [place]: 1.66 m/s2 | |TV Dec Time: 333.82 ms | |TV E Asaf: 0.55 m/s | |TV E/A Ratio: 1.38 | | | |Music Box Mechanic: KVW | |Authenticated by: Ana Stokes MD | |Report Date/Time: 01-09-2018 19:9:14 | | | |IMPRESSION: | |1. Overall left ventricular systolic function is normal with, an EF between 65 - 70 %. | |2. Mild mitral regurgitation is present. | |3. Right ventricular systolic pressure (pulmonary artery systolic pressure) is normal at < 35 mmHg. | |4. No clot visualized | + ---------+ + + + + + | Performing | Address | City/State/Zipcode | Phone Number | | Organization | | | | + + + + + | [facility] | [address] | [place] [address] | | + + + + + Ultrasound carotid doppler bilateral (01/09/2018 6:03 AM) + + + | Impressions | Performed At | + + + | 1. Mild bilateral carotid plaquing without significant stenosis. | [facility] | | 2. Antegrade flow in both vertebral arteries. Validated velocity | RADIOLOGY | | measurements with angiographic measurements and velocity criteria are | | | extrapolated from diameter data as defined by the Society of | | | Radiologists in Ultrasound Consensus Conference Radiology 2003; | | | 229;340-346. RADIA Electronically signed by Ryne Khanna MD | | | on Jan 09 2018 6:42AM Referring Provider Line: [phone] ID: | | | [id number] | | + + + + + + | Narrative | Performed At | + + + | EXAM: CAROTID DOPPLER ULTRASOUND EXAM DATE: 01/09/2018 06:04 AM. | [facility] | | CLINICAL HISTORY: Acute left-sided weakness. Stroke. | [facility] | | COMPARISON: None. TECHNIQUE: Real-time sonographic vascular | | | imaging was performed by the straw hat brusher through the carotid arterial | | | system with a linear transducer utilizing color-flow, Doppler flow and | | | spectral analysis. Multiple direct marketing representative static images were saved | | | for review. FINDINGS: Mild bilateral carotid plaque which appears | | | noncalcified. No significant stenosis seen bilaterally. Antegrade | | | flow in both vertebral arteries. Right: CCA Proximal: PSV 60 | | | cm/sec, EDV 14 cm/sec. CCA Distal: PSV 75 cm/sec, EDV 22 cm/sec. | | | ICA Proximal: PSV 55 cm/sec, EDV 15 cm/sec. ICA Mid: PSV 88 cm/sec, | | | EDV 27 cm/sec. ICA Distal: PSV 80 cm/sec, EDV 23 cm/sec. ECA | | | Proximal: PSV 93 cm/sec, EDV 14 cm/sec. Vertebral Mid: PSV 45 | | | cm/sec, EDV 11 cm/sec. ICA/CCA Ratio: 1.2. CCA Plaque: | | | Homogeneous. Vertebral Artery Flow: Antegrade. Left: CCA | | | Proximal: PSV 95 cm/sec, EDV 13 cm/sec. CCA Distal: PSV 85 cm/sec, | | | EDV 24 cm/sec. ICA Proximal: PSV 58 cm/sec/ EDV 16 cm/sec. ICA | | | Mid: PSV 101 cm/sec, EDV 36 cm/sec. ICA Distal: PSV 60 cm/sec, EDV | | | 27 cm/sec. ECA Proximal: PSV 93 cm/sec, EDV 13 cm/sec. Vertebral | | | Mid: PSV 56 cm/sec, EDV 10 cm/sec. ICA/CCA Ratio: 1.2. ICA | | | Plaque: Homogeneous. CCA Plaque: Homogeneous. Vertebral Artery Flow: | | | Antegrade. Other: None. | | + + + + + | Procedure Note | + + | Layton, Rad Results In - 01/09/2018 6:42 AM PDT EXAM:CAROTID DOPPLER ULTRASOUNDEXAM | | DATE: 01/09/2018 06:04 AM.CLINICAL HISTORY: Acute left-sided weakness. Stroke.COMPARISON: | | None.TECHNIQUE: Real-time sonographic vascular imaging was performed by the straw hat brusher | | through the carotid arterial system with a linear transducer utilizing color-flow, | | Doppler flow and spectral analysis. Multiple direct marketing representative static images were saved for | | review.FINDINGS:Mild bilateral carotid plaque which appears noncalcified. No | | significant stenosis seen bilaterally. Antegrade flow in both vertebral arteries.Right: | | CCA Proximal: PSV 60 cm/sec, EDV 14 cm/sec. CCA Distal: PSV 75 cm/sec, EDV 22 cm/sec. | | ICA Proximal: PSV 55 cm/sec, EDV 15 cm/sec. ICA Mid: PSV 88 cm/sec, EDV 27 cm/sec. ICA | | Distal: PSV 80 cm/sec, EDV 23 cm/sec. ECA Proximal: PSV 93 cm/sec, EDV 14 cm/sec. | | Vertebral Mid: PSV 45 cm/sec, EDV 11 cm/sec. ICA/CCA Ratio: 1.2.CCA Plaque: | | Homogeneous.Vertebral Artery Flow: Antegrade.Left: CCA Proximal: PSV 95 cm/sec, EDV 13 | | cm/sec. CCA Distal: PSV 85 cm/sec, EDV 24 cm/sec. ICA Proximal: PSV 58 cm/sec/ EDV 16 | | cm/sec. ICA Mid: PSV 101 cm/sec, EDV 36 cm/sec. ICA Distal: PSV 60 cm/sec, EDV 27 | | cm/sec. ECA Proximal: PSV 93 cm/sec, EDV 13 cm/sec. Vertebral Mid: PSV 56 cm/sec, EDV 10 | | cm/sec. ICA/CCA Ratio: 1.2. ICA Plaque: Homogeneous.CCA Plaque: Homogeneous.Vertebral | | Artery Flow: Antegrade.Other: None.IMPRESSION:1. Mild bilateral carotid plaquing without | | significant stenosis. 2. Antegrade flow in both vertebral arteries.Validated velocity | | measurements with angiographic measurements and velocity criteria are extrapolated from | | diameter data as defined by the Society of Radiologists in Ultrasound Consensus | | Conference Radiology 2003; 229;340-346.RADIA Electronically signed by Ryne Khanna MD on | | Jan 09 2018 6:42AM Referring Provider Line: [phone] ID: [id number] | |Vertebral Mid: PSV 45 cm/sec, EDV 11 cm/sec. | | | |ICA/CCA Ratio: 1.2. | | | |CCA Plaque: Homogeneous. | |Vertebral Artery Flow: Antegrade. | | | |Left: | |CCA Proximal: PSV 95 cm/sec, EDV 13 cm/sec. | |CCA Distal: PSV 85 cm/sec, EDV 24 cm/sec. | |ICA Proximal: PSV 58 cm/sec/ EDV 16 cm/sec. | |ICA Mid: PSV 101 cm/sec, EDV 36 cm/sec. | |ICA Distal: PSV 60 cm/sec, EDV 27 cm/sec. | |ECA Proximal: PSV 93 cm/sec, EDV 13 cm/sec. | |Vertebral Mid: PSV 56 cm/sec, EDV 10 cm/sec. | | | |ICA/CCA Ratio: 1.2. | | | |ICA Plaque: Homogeneous. | |CCA Plaque: Homogeneous. | |Vertebral Artery Flow: Antegrade. | | | |Other: None. | | | |IMPRESSION: | | | |1. Mild bilateral carotid plaquing without significant stenosis. | |2. Antegrade flow in both vertebral arteries. | | | |Validated velocity measurements with angiographic measurements and velocity criteria are ex trapolated from diameter data as defined by the Society of Radiologists in Ultrasound Consen brigitte Conference Radiology 2003; 229;340-346. | | | |RADIA | | | | Electronically signed by Ryne Khanna MD on Jan 09 2018 6:42AM Referring Provider Line: [phone] ID: [id number] | + + + + + + + | Performing | Address | City/State/Zipcode | Phone Number | | Organization | | | | + + + + + | [facility] | [address] | [facility] [address] | | + + + + + CBC w/auto diff (reflex to manual) (01/09/2018 4:57 AM) + + + + + | Component | Value | Ref Range | Performed At | + + + + + | WBC | 10.74 | 3.80 - 11.00 K/uL | [facility] | | | | | [facility] | + + + + + | RBC | 4.93 | 4.20 - 5.70 M/uL | [facility] | | | | | [facility] | + + + + + | HGB | 15.8 | 13.2 - 17.0 g/dL | [facility] | | | | | LAB[facility] | + + + + + | HCT | 45.1 | 39.0 - 50.0 % | [facility] | | | | | [facility] | + + + + + | MCV | 91.5 | 80.0 - 100.0 fl | [facility] | | | | | [facility] | + + + + + | MCH | 32.0 | 27.0 - 34.0 pg | [facility] | | | | | [facility] | + + + + + | MCHC | 35.0 | 32.0 - 35.5 g/dL | [facility] | | | | | [facility] | + + + + + | RDW SD | 46.8 | 37 - 53 fl | [facility] | | | | | [facility] | + + + + + | PLT | 176 | 150 - 400 K/uL | [facility] | | | | | [facility] | + + + + + | MPV | 8.4 | fl | [facility] | | | | | [facility] | + + + + + | DIFF TYPE | AUTOMATED | | [facility] | | | | | [facility] | + + + + + | NEUTROPHILS | 64.38 | % | [facility] | | | | | [facility] | + + + + + | LYMPHOCYTES | 26.21 | % | [facility] | | | | | [facility] | + + + + + | MONOCYTES | 7.23 | % | [facility] | | | | | [facility] | + + + + + | EOSINOPHILS | 1.56 | % | [facility] | | | | | [facility] | + + + + + | BASOPHILS | 0.62 | % | [facility] | | | | | [facility] | + + + + + | NEUTROPHILS ABS | 6.91 | 1.90 - 7.40 K/uL | [facility] | | | | | [facility] | + + + + + | LYMPHOCYTES ABS | 2.82 | 1.00 - 3.90 K/uL | [facility] | | | | | [facility] | + + + + + | MONOCYTES ABS | 0.78 | 0.00 - 0.80 K/uL | [facility] | | | | | LAB[facility] | + + + + + | EOSINOPHILS ABS | 0.17 | 0.00 - 0.50 K/uL | [facility] | | | | | LAB[facility]AT[facility] | + + + + + | BASOPHILS ABS | 0.07Comment: Testing | 0.00 - 0.10 K/uL | [facility] | | | performed at [facility], [address] | | LABORATORY | | | [address], | | | | | [place] [address] | | | + + + + + + + | Specimen | + + | Blood | + + + + + + + | Performing | Address | City/State/Zipcode | Phone Number | | Organization | | | | + + + + + | [facility] | [address] [place] [address] | [place] [address] | [phone] | | LABORATORY | [address] | | | + + + + + Magnesium (01/09/2018 4:57 AM) + + + + + | Component | Value | Ref Range | Performed At | + + + + + | MAGNESIUM | 1.8Comment: Testing | 1.7 - 2.4 mg/dL | [facility] | | | performed at [facility], [address] | | LABORATORY | | | [facility], | | | | | [place] [address] | | | + + + + + + + | Specimen | + + | Blood | + + + + + + + | Performing | Address | City/State/Zipcode | Phone Number | | Organization | | | | + + + + + | [facility] | [address] [address] | [place] [address] | [phone] | | LABORATORY | [address] | | | + + + + + Glycohemoglobin A1c (01/09/2018 4:57 AM) + + + + + | Component | Value | Ref Range | Performed At | + + + + + | HEMOGLOBIN A1C | 6.1 (H)Comment: The | 4.0 - 6.0 % | [facility] | | | [employer] | | LABORATORY | | | Association considers a | | | | | hemoglobin A1c result of | | | | | <7.0% to be the goal of | | | | | diabetic | | | | | therapy. When results | | | | | are consistently >8.0%, | | | | | the ADA suggests | | | | | reevaluation of the | | | | | treatment | | | | | regimen. The testing | | | | | method used is certified | | | | | traceable to the | | | | | Diabetes Control and | | | | | Complications Trial | | | | | reference method. | | | + + + + + | ESTIMATED AVG | 128Comment: The ADA | mg/dL | [facility] | | GLUCOSE | considers an eAG result | | LABORATORY | | | of LT 154 mg/dL to be | | | | | the goal of diabetic | | | | | therapy. Estimated | | | | | Average Glucose | | | | | calculated from | | | | | hemoglobin A1c by use of | | | | | the ADA recommended | | | | | formula.Testing | | | | | performed at [facility], [address] | | | | | [facility], | | | | | [place] [address] | | | + + + + + + + | Specimen | + + | Blood | + + + + + + + | Performing | Address | City/State/Zipcode | Phone Number | | Organization | | | | + + + + + | [facility] | [address] | [place] [address] | [phone] | | LABORATORY | [address] | | | + + + + + Lipid panel (01/09/2018 4:57 AM) + + + + + | Component | Value | Ref Range | Performed At | + + + + + | CHOLESTEROL | 153 | <200 mg/dL | [facility] | | | | | LABORATORY | + + + + + | Triglycerides | 197 (H) | <150 mg/dL | [facility] | | | | | LABORATORY | + + + + + | HDL CHOL | 21 (L) | >40 mg/dL | [facility] | | | | | LABORATORY | + + + + + | LDL CALC | 93Comment: Testing | <100 mg/dL | [facility] | | | performed at [facility], [address] | | LABORATORY | | | [address], | | | | | [place] [address] | | | + + + + + + + | Specimen | + + | Blood | + + + + + + + | Performing | Address | City/State/Zipcode | Phone Number | | Organization | | | | + + + + + | [facility] | [address] [facility] | [place] [address] | [phone] | | LABORATORY | [address] | | | + + + + + Comprehensive metabolic panel (01/09/2018 4:57 AM) + + + + + | Component | Value | Ref Range | Performed At | + + + + + | SODIUM | 140 | 135 - 145 mmol/L | [facility] | | | | | LABORATORY | + + + + + | POTASSIUM | 4.0 | 3.5 - 4.9 mmol/L | [facility] | | | | | LABORATORY | + + + + + | CHLORIDE | 108 | 99 - 109 mmol/L | [facility] | | | | | LABORATORY | + + + + + | CO2 | 24 | 23 - 32 mmol/L | [facility] | | | | | LABORATORY | + + + + + | ANION GAP AGAP | 12 | 5 - 20 mmol/L | [facility] | | | | | LABORATORY | + + + + + | GLUCOSE | 106 (H) | 65 - 99 mg/dL | [facility] | | | | | LABORATORY | + + + + + | BUN | 11 | 8 - 25 mg/dL | [facility] | | | | | LABORATORY | + + + + + | CREATININE | 0.8 | 0.70 - 1.30 mg/dL | [facility] | | | | | LABORATORY | + + + + + | BUN/CREAT | 14 | | [facility] | | | | | LABORATORY | + + + + + | CALCIUM | 8.5 | 8.5 - 10.5 mg/dL | [facility] | | | | | LABORATORY | + + + + + | TOTAL PROTEIN | 6.6 | 6.3 - 8.2 g/dL | [facility] | | | | | LABORATORY | + + + + + | Albumin | 3.4 (L) | 3.6 - 5.0 g/dL | [facility] | | | | | LABORATORY | + + + + + | GLOBULIN | 3.2 | 1.3 - 4.9 g/dL | [facility] | | | | | LABORATORY | + + + + + | A/G | 1.1 | 1.0 - 2.4 | [facility] | | | | | LABORATORY | + + + + + | TBIL | 0.7 | 0.1 - 1.5 mg/dL | [facility] | | | | | LABORATORY | + + + + + | ALK PHOS | 85 | 35 - 115 U/L | [facility] | | | | | LABORATORY | + + + + + | AST | 16 | 10 - 45 U/L | [facility] | | | | | LABORATORY | + + + + + | ALT | 25 | 10 - 65 U/L | [facility] | | | | | LABORATORY | + + + + + | EGFR | >60Comment: GFR <60: | >60 mL/min/1.73m2 | [facility] | | | CHRONIC KIDNEY DISEASE, | | LABORATORY | | | IF FOUND OVER A 3 MONTH | | | | | PERIOD.GFR <15: KIDNEY | | | | | FAILURE.FOR | | | | | AMERICANS, MULTIPLY THE | | | | | CALCULATED GFR BY | | | | | 1.210.This eGFR is | | | | | calculated using the | | | | | MDRD IDMS traceable | | | | | equation. PLEASE NOTE | | | | | NEW CALCULATION | | | | | EFFECTIVE 12/18/2017 | | | | | Testing performed at | | | | | [facility], [address] [place] [address] | | | | | [place], | | | | | [place] [address] | | | + + + + + + + | Specimen | + + | Blood | + + + + + + + | Performing | Address | City/State/Zipcode | Phone Number | | Organization | | | | + + + + + | [facility] | [address] [facility] | [place] [address] | [phone] | | LABORATORY | [address] | | | + + + + + MRI brain without contrast and MRA head (01/08/2018 9:16 PM) + + + | Impressions | Performed At | + + + | 1. Normal MRI examination of the brain without contrast. | [facility] | | 2. MRA of the cerebral arterial system shows no stenosis, | [facility]OLOG[facility] | | occlusion, aneurysm or vasculitis. Absence of the left posterior | | | communicating artery and predominantly origin of the right | | | posterior cerebral artery noted. | | + + + + + + | Narrative | Performed At | + + + | [facility]OP[facility] MRI BRAIN WO AND MRA HEAD 01/08/2018 9:16 PM | [facility] | | HISTORY: 57 years. Male. Acute left-sided weakness. Acute | RADIOLOGY | | embolic stroke. TECHNIQUE: Imaging was performed on a 1.5 [employer] | | | MRI system. Multiplanar sequences were acquired according to a | | | standard department protocol without contrast. A 3D noncontrast | | | [id number] MRA sequence was acquired through the | | | head. Multiplanar angiographic MIP reconstructions from the MRA | | | dataset were performed. COMPARISON: CT head 01/08/2018 | | | FINDINGS: The brain parenchyma demonstrates normal architectural | | | features and signal intensity on all sequences. The ventricles, | | | cisterns and sulci are normal in size and configuration. No extraaxial | | | fluid collections are noted. The midline structures including the | | | corpus callosum, effie, cerebellar vermis, pineal gland and pituitary | | | are normal. No masses are seen in the region of the | | | cerebellopontine angles or internal auditory canals. The orbits and | | | their contents are normal. The paranasal sinuses are well | | | aerated. No air-fluid levels or mucosal thickening is noted. No | | | fluid seen in the mastoids. The osseous structures of the calvaria | | | and upper cervical spine demonstrate normal bone marrow signal | | | intensity. The soft tissues of the oropharynx and upper neck appear | | | normal on the sagittal sequences. The intracranial arteries | | | demonstrate normal flow voids on the T2 sequence. No large aneurysm | | | is noted. The dural venous sinuses also demonstrate normal | | | flow-voids. MRA The vertebral arteries are codominant. The | | | posterior inferior cerebellar arteries are normal. The basilar | | | artery is normal in course caliber and contour. The distal basilar | | | artery supplies both superior cerebellar arteries and also supplies a | | | small P1 segment to the right posterior cerebral artery. Although | | | the right posterior cerebral artery shows predominantly | | | origin. The left posterior communicating artery is not visualized. | | | The anterior communicating artery is patent. The distal internal | | | carotid arteries are widely patent. At the carotid termini, normal | | | caliber A1 and M1 segments of the anterior and middle cerebral | | | arteries arise bilaterally. The distal portions of the anterior, | | | middle and posterior cerebral arteries taper smoothly. No stenosis, | | | occlusion, aneurysm or vasculitis is seen. | | + + + + + | Procedure Note | + + | [place], Rad Results In - 01/08/2018 9:57 PM [facility] | | HEAD01/08/2018 9:16 PMHISTORY:57 years. Male. Acute left-sided weakness. Acute embolic | | stroke.TECHNIQUE:Imaging was performed on a 1.5 [employer] MRI system. Multiplanar | | sequences were acquired according to a standard department protocol without contrast. | | A 3D noncontrast [id number] MRA sequence was acquired through the head. Multiplanar | | angiographic MIP reconstructions from the MRA dataset were performed.COMPARISON:CT head | | 01/08/2018FINDINGS:The brain parenchyma demonstrates normal architectural features and | | signal intensity on all sequences.The ventricles, cisterns and sulci are normal in size | | and configuration. No extraaxial fluid collections are noted. The midline structures | | including the corpus callosum, effie, cerebellar vermis, pineal gland and pituitary are | | normal.No masses are seen in the region of the cerebellopontine angles or internal | | auditory canals. The orbits and their contents are normal. The paranasal sinuses are | | well aerated. No air-fluid levels or mucosal thickening is noted. No fluid seen in the | | mastoids. The osseous structures of the calvaria and upper cervical spine demonstrate | | normal bone marrow signal intensity. The soft tissues of the oropharynx and upper neck | | appear normal on the sagittal sequences. The intracranial arteries demonstrate normal | | flow voids on the T2 sequence. No large aneurysm is noted. The dural venous sinuses | | also demonstrate normal flow-voids.MRAThe vertebral arteries are codominant. The | | posterior inferior cerebellar arteries are normal. The basilar artery is normal in | | course caliber and contour. The distal basilar artery supplies both superior cerebellar | | arteries and also supplies a small P1 segment to the right posterior cerebral artery. | | Although the right posterior cerebral artery shows predominantly origin. The left | | posterior communicating artery is not visualized. The anterior communicating artery is | | patent. The distal internal carotid arteries are widely patent. At the carotid | | termini, normal caliber A1 and M1 segments of the anterior and middle cerebral arteries | | arise bilaterally. The distal portions of the anterior, middle and posterior cerebral | | arteries taper smoothly. No stenosis, occlusion, aneurysm or vasculitis is | | seen.IMPRESSION:1. Normal MRI examination of the brain without contrast.2. MRA of the | | cerebral arterial system shows no stenosis, occlusion, aneurysm or vasculitis. Absence | | of the left posterior communicating artery and predominantly origin of the right | | posterior cerebral artery noted. | | 9:52 PM | | | | | + + + + + + + | Performing | Address | City/State/Zipcode | Phone Number | | Organization | | | | + + + + + | [facility] | [address] | [place] [address] | | + + + + + CT Head Non-Contrast (01/08/2018 1:27 PM) + + + | Impressions | Performed At | + + + | 1. Brain is negative for acute pathology. Electronically | [facility] | | signed by Ranjit Estrella MD on 01/08/2018 1:28 PM | RADIOLOGY | + + + + + + | Narrative | Performed At | + + + | ERIS Malave RICHELLE 57 years Male HISTORY: Headache and left-sided | [facility] | | weakness for the last 4 days. TECHNIQUE: Helical CT noncontrast | RADIOLOGY | | images were acquired from the foramen magnum through the cranial | | | vertex. Dose reduction techniques were used including automated | | | exposure control (AEC), iterative reconstruction technique, and/or mA | | | and/or kV dose adjustments based on patient size COMPARISON: | | | None. FINDINGS: The brain parenchyma does not demonstrate acute | | | intraaxial hemorrhage, midline shift, mass effect, or cerebral | | | edema. The ventricles, cisterns, and sulci are normal in size and | | | configuration. Normal south-white matter differentiation is | | | preserved. No extraaxial fluid collections are noted. The | | | orbits and their contents are normal. The paranasal sinuses are | | | well aerated. No mucosal thickening or air-fluid levels are | | | noted. The mastoid air cells show normal pneumatization | | | bilaterally. No mastoid fluid noted. The osseous structures of | | | the calvaria do not demonstrate fracture. No lytic or blastic | | | lesions are noted. | | + + + + ---------+ | Procedure Note | + ---------+ | Layton, Rad Results In - 01/08/2018 1:33 PM PDT ERIS PEOPLES 57 years | | MaleHISTORY:Headache and left-sided weakness for the last 4 days.TECHNIQUE:Helical CT | | noncontrast images were acquired from the foramen magnum through the cranial vertex.Dose | | reduction techniques were used including automated exposure control (AEC), iterative | | reconstruction technique, and/or mA and/or kV dose adjustments based on patient | | sizeCOMPARISON:None.FINDINGS:The brain parenchyma does not demonstrate acute intraaxial | | hemorrhage, midline shift, mass effect, or cerebral edema. The ventricles, cisterns, | | and sulci are normal in size and configuration. Normal south-white matter differentiation | | is preserved. No extraaxial fluid collections are noted. The orbits and their | | contents are normal. The paranasal sinuses are well aerated. No mucosal thickening or | | air-fluid levels are noted. The mastoid air cells show normal pneumatization | | bilaterally. No mastoid fluid noted. The osseous structures of the calvaria do not | | demonstrate fracture. No lytic or blastic lesions are noted.IMPRESSION:1. Brain is | | negative for acute pathology. | | 1:28 PM | |mastoid air cells show normal pneumatization bilaterally. No mastoid fluid noted. The oss eous structures of the calvaria do not demonstrate fracture. No lytic or blastic lesions ar e noted. | | | |IMPRESSION: | |1. Brain is negative for acute pathology. | | | | | + ---------+ + + + + + | Performing | Address | City/State/Zipcode | Phone Number | | Organization | | | | + + + + + | [facility] | [address] | [place] [address] | | + + + + + XR Chest PA and Lateral (01/08/2018 1:19 PM) + + + | Impressions | Performed At | + + + | No radiographic evidence of acute cardiopulmonary disease. | [facility] | | | RADIOLOGY | + + + + + + | Narrative | Performed At | + + + | ERIS PEOPLES XR CHEST 2 VIEW FRONTAL AND LATERAL 01/08/2018 | [facility] | | 1:19 PM HISTORY: 57 years. Male. Chest pain. TECHNIQUE: | RADIOLOGY | | XR CHEST 2 VIEW FRONTAL AND LATERAL. 2 view(s) obtained. | | | COMPARISON: 05/25/2017 FINDINGS: Normal cardiac size. Linear | | | subsegmental atelectasis or scarring in lingular segment of left upper | | | lobe. No airspace consolidation, pulmonary nodule, pulmonary mass, | | | pleural effusion or pneumothorax. No acute fracture. Mild thoracic | | | spondylosis. Visualized portion of abdomen is unremarkable. | | + + + + + | Procedure Note | + + | Layton, Rad Results In - 01/08/2018 1:26 PM PDT ERIS Malave WILLIAMSXR CHEST 2 VIEW FRONTAL | | AND LATERAL01/08/2018 1:19 PMHISTORY:57 years. Male. Chest pain.TECHNIQUE:XR CHEST 2 | | VIEW FRONTAL AND LATERAL. 2 view(s) obtained.COMPARISON:05/25/2017FINDINGS:Normal | | cardiac size. Linear subsegmental atelectasis or scarring in lingular segment of left | | upper lobe. No airspace consolidation, pulmonary nodule, pulmonary mass, pleural | | effusion or pneumothorax. No acute fracture. Mild thoracic spondylosis. Visualized | | portion of abdomen is unremarkable.IMPRESSION:No radiographic evidence of acute | | cardiopulmonary disease. | |XR CHEST 2 VIEW FRONTAL AND LATERAL. 2 view(s) obtained. | | | |COMPARISON: | |05/25/2017 | | | |FINDINGS: | |Normal cardiac size. Linear subsegmental atelectasis or scarring in lingular segment of lef t upper lobe. No airspace consolidation, pulmonary nodule, pulmonary mass, pleural effusion or pneumothorax. No acute | |fracture. Mild thoracic spondylosis. Visualized portion of abdomen is unremarkable. | | | |IMPRESSION: | |No radiographic evidence of acute cardiopulmonary disease. | | | | | + + + + + + + | Performing | Address | City/State/Zipcode | Phone Number | | Organization | | | | + + + + + | [facility] | [address] | [place] [address] | | + + + + + Cardiac Panel (01/08/2018 12:45 PM) + + + + + | Component | Value | Ref Range | Performed At | + + + + + | WBC | 14.08 (H) | 3.80 - 11.00 K/uL | [facility] | + + + + + | RBC | 5.35 | 4.20 - 5.70 M/uL | [facility] | + + + + + | HGB | 17.0 | 13.2 - 17.0 g/dL | [facility] | + + + + + | HCT | 49.5 | 39.0 - 50.0 % | [facility] | + + + + + | MCV | 92.6 | 80.0 - 100.0 fl | [facility] | + + + + + | MCH | 31.8 | 27.0 - 34.0 pg | [facility] | + + + + + | MCHC | 34.3 | 32.0 - 35.5 g/dL | [facility] | + + + + + | RDW SD | 46.8 | 37 - 53 fl | [facility] | + + + + + | PLT | 210 | 150 - 400 K/uL | [facility] | + + + + + | MPV | 7.9 | fl | [facility] | + + + + + | DIFF TYPE | AUTOMATED | | [facility] | + + + + + | NEUTROPHILS | 60.57 | % | [facility] | + + + + + | LYMPHOCYTES | 29.70 | % | [facility] | + + + + + | MONOCYTES | 7.62 | % | [facility] | + + + + + | EOSINOPHILS | 1.09 | % | [facility] | + + + + + | BASOPHILS | 1.02 | % | [facility] | + + + + + | NEUTROPHILS ABS | 8.53 (H) | 1.90 - 7.40 K/uL | [facility] | + + + + + | LYMPHOCYTES ABS | 4.18 (H) | 1.00 - 3.90 K/uL | [facility] | + + + + + | MONOCYTES ABS | 1.07 (H) | 0.00 - 0.80 K/uL | [facility] | + + + + + | EOSINOPHILS ABS | 0.15 | 0.00 - 0.50 K/uL | [facility] | + + + + + | BASOPHILS ABS | 0.14 (H) | 0.00 - 0.10 K/uL | [facility] | + + + + + | SODIUM | 145 | 135 - 145 mmol/L | [facility] | + + + + + | POTASSIUM | 3.6 | 3.5 - 4.9 mmol/L | [facility] | + + + + + | CHLORIDE | 108 | 99 - 109 mmol/L | [facility] | + + + + + | CO2 | 25 | 23 - 32 mmol/L | [facility] | + + + + + | ANION GAP AGAP | 16 | 5 - 20 mmol/L | [facility] | + + + + + | GLUCOSE | 98 | 65 - 99 mg/dL | [facility] | + + + + + | BUN | 10 | 8 - 25 mg/dL | [facility] | + + + + + | CREATININE | 0.88 | 0.70 - 1.30 mg/dL | [facility] | + + + + + | BUN/CREAT | 11 | | [facility] | + + + + + | CALCIUM | 8.9 | 8.5 - 10.5 mg/dL | [facility] | + + + + + | TOTAL PROTEIN | 7.5 | 6.3 - 8.2 g/dL | [facility] | + + + + + | Albumin | 3.8 | 3.6 - 5.0 g/dL | [facility] | + + + + + | GLOBULIN | 3.7 | 1.3 - 4.9 g/dL | [facility] | + + + + + | A/G | 1.0 | 1.0 - 2.4 | [facility] | + + + + + | TBIL | 0.3 | 0.1 - 1.5 mg/dL | [facility] | + + + + + | ALK PHOS | 96 | 35 - 115 U/L | [facility] | + + + + + | AST | 14 | 10 - 45 U/L | [facility] | + + + + + | ALT | 24 | 10 - 65 U/L | [facility] | + + + + + | EGFR | >60Comment: GFR <60: | >60 mL/min/1.73m2 | [facility] | | | CHRONIC KIDNEY DISEASE, | | | | | IF FOUND OVER A 3 MONTH | | | | | PERIOD.GFR <15: KIDNEY | | | | | FAILURE.FOR | | | | | AMERICANS, MULTIPLY THE | | | | | CALCULATED GFR BY | | | | | 1.210.This eGFR is | | | | | calculated using the | | | | | MDRD [facility] traceable | | | | | equation. PLEASE NOTE | | | | | NEW CALCULATION | | | | | EFFECTIVE 12/18/2017 | | | + + + + + | CPK | 52 (L) | 55 - 400 U/L | [facility] | + + + + + | INR | 0.9Comment: REFERENCE | | [facility] | | | RANGE:0.9 - | | | | | 1.2 NON-ANTICOAGULATE | | | | | D2.0 - 3.0 ALL OTHER | | | | | THERAPEUTIC | | | | | INDICATIONS2.5 - 3.5 | | | | | MECHANICAL HEART VALVES, | | | | | RECURRENT OR SYSTEMIC | | | | | EMBOLISM | | | + + + + + | APTT | 27 | 23 - 32 seconds | [facility] | + + + + + | MMB | 0.9 | 0.5 - 3.6 ng/mL | [facility] | + + + + + | CK-MB Index | 1.7Comment: CK INDEX | | [facility] | | | INTERPRETATION: | | | | | MMB | | | | | ng/mL & Relative | | | | | IndexNon-AMI | | | | | < or = | | | | | 5.0 N | | | | | AGray Zone | | | | | >5.0 < | | | | | or = | | | | | 4.0AMI | | | | | | | | | | >5.0 | | | | | >4.0Testing | | | | | performed at [facility], [address] | [address], | | | | | [place] [address] | | | + + + + + + + + + + | Performing | Address | City/State/Zipcode | Phone Number | | Organization | | | | + + + + + | [facility] | [address] | [place] [address] | | + + + + + Troponin I (01/08/2018 12:45 PM) + + + + + | Component | Value | Ref Range | Performed At | + + + + + | TROPONIN I | <0.04Comment: 0.00 to | 0.00 - 0.10 ng/mL | [facility] | | | 0.10 CONSISTENT WITH | | | | | NORMAL POPULATION0.11 | | | | | to 0.60 CONSISTENT | | | | | WITH INCREASED RISK FOR | | | | | ADVERSE OUTCOMES> | | | | | 0.60 | | | | | CONSISTENT WITH WHO | | | | | CRITERIA FOR ACUTE DE | | | | | Testing performed at | | | | | [facility], [address], | | | | | [place] [address] | | | + + + + + + + | Specimen | + + | Blood | + + + + + + + | Performing | Address | City/State/Zipcode | Phone Number | | Organization | | | | + + + + + | [facility] | [address] | [facility] [place] [place] [address] | | + + + + + EKG 12 LEAD UNIT PERFORMED (01/08/2018 12:40 PM) + + + + + | Component | Value | Ref Range | Performed At | + + + + + | Ventricular Rate | 86 | BPM | [facility] | + + + + + | Atrial Rate | 86 | BPM | [facility] | + + + + + | P-R Interval | 156 | ms | [facility] | + + + + + | QRS Duration | 92 | ms | [facility] | + + + + + | Q-T Interval | 372 | ms | [facility] | + + + + + | QTC Calculation | 445 | ms | [facility] | | (Bezet) | | | | + + + + + | Calculated P [place] | 34 | degrees | [facility] | + + + + + | Calculated R [place] | -31 | degrees | [facility] | + + + + + | Calculated T [place] | 32 | degrees | [facility] | + + + + + | Diagnosis | Normal sinus rhythmLeft | | [facility] | | | axis deviationInferior | | | | | infarct , age | | | | | undeterminedAbnormal | | | | | ECGNo previous ECGs | | | | | availableThis ECG | | | | | contains Unconfirmed | | | | | Interpretation | | | | | Statements. See ED | | | | | Record for Physician | | | | | Interpretation. | | | | | Confirmed by MUSE READ | | | | | ONLY, -COMPUTER ([id number]), | | | | | rewrite editor Nguyễn Garcia | | | | | Kleber ([id number]) on 01/09/2018 | | | | | 1:16:57 AM | | | + + + + + + + + + + | Performing | Address | City/State/Zipcode | Phone Number | | Organization | | | | + + + + + | [facility] | [address] | [place] [address] | | + + + + + from Last 3 Months Insurance + +--------+ +------+-------+---------+ | Payer | Benefi | Subscriber | Type | Phone | Address | | | t Plan | ID | | | | | | / | | | | | | | Group | | | | | + +--------+ +------+-------+---------+ | [employer] | ODS | [id number] | | | | | | HEALTH | | | | | | | PLAN | | | | | + +--------+ +------+-------+---------+ + +--------+ +--------+ + + | Guarantor Name | Accoun | Relation to | Date | Phone | Billing Address | | | t Type | Patient | of | | | | | | | | | | + +--------+ +--------+ + + | ERIS PEOPLES | Person | Self [birth year] Home: | [address] | | | al/[place] | | 1961 | [phone] | [place] | | | jeremy | | | [phone] | [phone] | + +--------+ +--------+ + +
--- OUTSIDE RECORDS SUMMARY | ~2018-03-10 | XMS | Clinical Summary ---
Demographics + + + | Address | [address] | | | [place] [address] | + + + | Home Phone | | + + + | Preferred Language | Unknown | + + + | Marital Status | Single | + + + | Jew Affiliation | CHR | + + + | Race | White | + + + | Ethnic Group | Not or | + + + Author + + + | Author | [facility] | + + + | Organization | [facility] | + + + | Address | Unknown | + + + | Phone | Unavailable | + + + Care Team Providers + +------+ + | Care Servicer Name | Role | Phone | + +------+ + PP | Unavailable | + +------+ + Source Comments ISIDRO is fully live on both [facility] and [facility] Allergies Not on File Current Medications Not on file Active Problems Not on file Social History + +-------+ +--------+------+ | Tobacco Use | Types | Packs/Day | Years | Date | | | | | Used | | + +-------+ +--------+------+ | Never Assessed | | | | | + +-------+ +--------+------+ + + + | Sex Assigned at | Date Recorded | | | | + + + | Not on file | | + + + Plan of Treatment + + + + + | Health Maintenance | Due Date | Last Done | Comments | + + + + + | INFLUENZA VACCINE | | | | | (FLU SHOT) | 8 | | | + + + + + Results Not on filefrom Last 3 Months Insurance + +--------+ +--------+-------+---------+ | Payer | Benefi | Subscriber | Type | Phone | Address | | | t Plan | ID | | | | | | / | | | | | | | Group | | | | | + +--------+ +--------+-------+---------+ | [facility] | | [phone] | Agency | | | | SERVICE | | | | | | | | HEALTH | | | | | | | | | | | | | | SERVIC | | | | | | | E | | | | | + +--------+ +--------+-------+---------+ + +--------+ +--------+ + + | Guarantor Name | Accoun | Relation to | Date | Phone | Billing Address | | | t Type | Patient | of | | | | | | | | | | + +--------+ +--------+ + + | ERIS PEOPLES | Person | Other [birth year] | Home: | [address] | | | al/Fam | | 1961 | [phone] | [place] [address] | | | jeremy | | | [phone] | | + +--------+ +--------+ + +"
--- OUTSIDE RECORDS SUMMARY | ~2018-03-10 | XMS | Encounter Summary ---
Demographics + + + | Address | [address] | | | [place] [address] | + + + | Home Phone | | + + + | Preferred Language | Unknown | + + + | Marital Status | Single | + + + | Taoism Affiliation | 1013 | + + + | Race | Unknown | + + + | Ethnic Group | Unknown | + + + Author + + + | Author | [facility] | + + + | Organization | [facility] | + + + | Address | Unknown | + + + | Phone | Unavailable | + + + Support + + +---------+ + | Name | Relationship | Address | Phone | + + +---------+ + | Karol Ho | ECON | Unknown | | + + +---------+ + Care Team Providers + +------+ + | Care Ash Pit Worker Name | Role | Phone | + +------+ + | Herberth Jude Magali BRICE | PCP | | + +------+ + Encounter Details +--------+ + + + + | Date | Type | Department | Care Team | Description | +--------+ + + + + | 01/08/ | Procedure | [facility] | | | | 2018 | [facility] | [address] | | | | | | [facility] [place] | | | | | | [address] | | | | | | [place] [address] | | | | | | [phone] | | | +--------+ + + + [...] as of this encounter Plan of Treatment +--------+ + + + + | Date | Type | Specialty | Care Team | Description | +--------+ + + + + | 03/19/ | Initial | Cardiology | Chris Schneider, | | | 2018 | consult | | MD [address] | | | | | | [place], | | | | | | [place] [address] | | | | | | [phone] | | | | | | | | +--------+ + + + + as of this encounter Visit Diagnoses Not on filein this encounter"
--- OUTSIDE RECORDS SUMMARY | ~2018-03-10 | XMS | Clinical Summary ---
Demographics + + + | Address | [address] | | | [place] [address] | + + + | Home Phone | | + + + | Preferred Language | Unknown | + + + | Marital Status | | + + + | Mosque Affiliation | 1013 | + + + | Race | Unknown | + + + | Ethnic Group | Unknown | + + + Author + + + | Author | [facility] | | | and Suman | + + + | Organization | [facility] | | | and [facility] | + + + | Address | Unknown | + + + | Phone | Unavailable | + + + Support + + + + + | Name | Relationship | Address | Phone | + + + + + | Karol Peoples | ECON | [address] [place] | | | | | [address] | | + + + + + Care Team Providers + +------+ + | Care Household Chores Name | Role | Phone | + [...] Date | + + + | Acute MT (HCC) | 07/02/2017 | + + + [...] | [employer] | [employer] | [id number] | Medica | [phone] | | MEDICAID HMO | HEALTH [...] | 1961 | [phone] | [place] [address] | | | [place] | | | [phone] | | + +--------+ +--------+ + +
--- OUTSIDE RECORDS SUMMARY | ~2018-03-10 | XMS | Encounter Summary ---
Demographics + + + | Address | [address] | | | [place] [address] | + + + | Home Phone | | + + + | Preferred Language | Unknown | + + + | Marital Status | Single | + + + | Yarsani Affiliation | 1013 | + + + | Race | Unknown | + + + | Ethnic Group | Unknown | + + + Author + + + | Author | Julee [email or web address] | + + + | Organization | [facility] | + + + | Address | Unknown | + + + | Phone | Unavailable | + + + Support + + +---------+ + | Name | Relationship | Address | Phone | + + +---------+ + | Karol Peoples | ECON | Unknown | | + + +---------+ + Care Team Providers + +------+ + | Care Laminator Name | Role | Phone | + +------+ + | Herberth Jude Magali BRICE | PCP | | + +------+ + Reason for Visit + + + | Reason | Comments | + + + | Chest Pain | radiates to left arm heaviness intermittent since sunday and | | | worked up on sunday in [facility]. everything negative and sent | | | home | + + + | Headache | | + + + | Extremity Weakness | left arm since sunday, increasing weakness | + + + Auth/Cert +--------+--------+ + + + + | Status | Reason | Specialty | Diagnoses / | Referred By | Referred To | | | | | Procedures | Contact | Contact | +--------+--------+ + + + + | | | Internal | Diagnoses | | [facility] 7th | | | | Medicine | Acute | | [facility] | | | | | left-sided | | [address] | | | | | weakness | | [address] | | | | | Acute | | [place], [place] | | | | | embolic | | [address] Phone: | | | | | stroke ([facility]) | | [phone] | | | | | | | | +--------+--------+ + + + + Encounter Details +--------+ + + + + | Date | Type | Department | Care Team | Description | +--------+ + + + + | 01/08/ | Hospital | [facility] | Estefanai Garcia, | Acute left-sided | | 2018 - | Encounter | [address] | MD José [address] | weakness (Primary | | | | [facility] | EMERGENCY DEPARTMENT | Dx); Acute embolic | | 01/09/ | | [address] | [place] [address] | stroke (HCC) | | 2018 | | [place] [address] | [phone] | | | | | [phone] | | | | | | | Tommy Saez DO [address] | | | | | | [address] | | | | | | [place], [place] | | | | | | [address] | | | | | | [phone] | | | | | | | | | | | | Jamie Castro MD | | | | | | [address] | | | | | | [place] [address] | | | | | | [phone] | | | | | | | [...] + + + as of this encounter Last Filed Vital Signs + + + [...] PM PDT | + + + + in this encounter Discharge Summaries Jamie Castro MD - 01/09/2018 2:13 PM PDTFormatting of this note may be different from the original. Patient: Eris Peoples : 1960 Date of Admission: 01/08/2018 Date of Discharge: 01/09/2018 Treatment Team: Admitting Provider: Tommy Saez DO Discharging Provider: Jamie Castro MD Discharge Diagnoses: Principal Problem (Resolved): Slurred speech Active Problems: Essential hypertension Dyslipidemia CAD (coronary artery disease) Leukocytosis Resolved Problems: Transient weakness of left lower extremity Procedures Performed: Chief Complaint: Chest Pain (radiates to left arm heaviness intermittent since sunday and worked up on in [facility]. everything negative and sent home); Headache; and Extremity Weakness (left arm since sunday, increasing weakness) Hospital Course: Eris Peoples is a 57 y.o. male with htn, CAD with stents, hld who was admitted on 2017 with complaints of slurred speech and left sided weakness. Apparently the symptoms had began about 3 days ago. He also was seen in [place] for chest pain recently and [place] was rul ed out and patient sent home. He continued to have left sided weakness and slurred speech an d was evaluted int he ER. No prior history of cva previously. Patient underwent ct head which was negative for acute process. MRI/MRA were essentially no rmal and no foci of ischemia was noted. US carotid demonstrated no significant stenosis b/l. This morning the patients symptoms resolved. He did have a slight left facial droop, but th is has improved. Speech therapy evaluated the patient and he was able to tolerate a diet. He was evaluated by physical therapy and was safe to be discharge home. Echocardiogram is pending and he will follow up results as outpatient. Discharge Exam and Data: Vital Signs: BP 120/68 (BP Location: Left upper arm) | Pulse 62 | Temp 97.6 F (36.4 C) (Oral) | R checo 16 | Ht 1.727 m (5' 8") | Wt 104.8 kg (231 lb) | SpO2 93% | BMI 35.12 kg/m I&O Last 3 Shifts: 01/07 1900 - 01/09 0659 In: 0 Out: 200 [Urine:200] Physical Examination: Constitutional Appears well-developed and well-nourished. HEENT: Neck supple, no JVD, non icteric sclera. Cardiovascular: Normal rate, regular rhythm, normal heart sounds with S1 and S2. Exam reve als no appreciated gallop or friction rub. No murmur heard. Pulmonary/Chest: Effort normal and breath sounds normal. No stridor. No respiratory distres s. no wheezes. no rales. exhibits no tenderness. Abdominal: Soft. Bowel sounds are normal. exhibits no distension and no mass. There is no t enderness. There is no rebound and no guarding. Extremeties/Musculoskeletal: Normal range of motion.exhibits no tenderness. exhibits no ed mary. Neurological: Alert and oriented to person, place, and time. No cranial nerve deficit. Exhibits normal muscle tone. Coordination normal. Skin: Skin is warm and dry. No rash noted. No erythema. No pallor. Psychiatric: Has a normal mood and affect given situation. Recent Labs Recent Labs Lab 01/09/18 0457 01/08/18 1245 WBC 10.74 14.08* HGB 15.8 17.0 HCT 45.1 49.5 PLT 176 210 Recent Labs Lab 01/09/18 0457 01/08/18 1245 NA 140 145 K 4.0 3.6 CL 108 108 CO2 24 25 BUN 11 10 CREATININE 0.8 0.88 Recent Labs Lab 01/08/18 1245 INR 0.9 Results No results found for the last 72 hours. Recent Radiology Results Xr Chest Pa And Lateral Result Date: 01/08/2018 No radiographic evidence of acute cardiopulmonary disease. Ct Head Non-contrast Result Date: 01/08/2018 1. Brain is negative for acute pathology. Ultrasound Carotid Doppler Bilateral Result Date: 01/09/2018 1. Mild bilateral carotid plaquing without significant stenosis. 2. Antegrade flow in both vertebral arteries. Validated velocity measurements with angiographic measurements and veloc ity criteria are extrapolated from diameter data as defined by the Society of Radiologists i n Ultrasound Consensus Conference Radiology 2003; 229;340-346. RADIA Electronically signed by Ryne Khanna MD on Jan 09 2018 6:42AM Referring Provider Line: [phone] ID: [id number] Mri Brain Without Contrast And Mra Head Result Date: 01/08/2018 1. Normal MRI examination of the brain without contrast. 2. MRA of the cerebral arterial system shows no stenosis, occlusion, aneurysm or vasculitis. Absence of the left posterior communicating artery and predominantly origin of the right posterior cerebral artery n oted. Outstanding Issues: Patient to follow with pcp regarding echocardiogram results Discharge Information: Follow up: Jude Kevin, YUN[facility] [address] [facility] [place] [address] Schedule an appointment as soon as possible for a visit in 1 week s/p left side weakness and slurred speech resolved. Normal MRI. Hospital follow up. Medication List CHANGE how you take these medications atorvastatin 40 MG tablet QTY: 30 tablet Refills: 0 Commonly known as: LIPITOR Take 1 tablet by mouth nightly. What changed: medication strength how much to take CONTINUE taking these medications aspirin 81 MG chewable tablet Refills: 0 clopidogrel 75 MG tablet Refills: 0 Commonly known as: PLAVIX diphenhydrAMINE 25 mg capsule Refills: 0 Commonly known as: BENADRYL lisinopril 2.5 MG tablet Refills: 0 Commonly known as: ZESTRIL metoprolol 25 MG 24 hr tablet Refills: 0 Commonly known as: TOPROL-XL You might also be taking other medications not listed above. If you have questions about an y of your other medications, talk to the person who prescribed them or your Primary Care Pro vider. STOP taking these medications nitroGLYCERIN 0.4 MG SL tablet Commonly known as: NITROSTAT Where to Get Your Medications You can get these medications from any pharmacy Bring a paper prescription for each of these medications atorvastatin 40 MG tablet Disposition: Home Condition: Stable Code Status: DNR/DNI Discharge took 51 minutes, to include final examination, discussion of admission, and prepa ration of prescriptions, instructions for on-going care, follow-up and documentation of disc harge summary. Jamie Castro MD 5:42 PMin this encounter Discharge Instructions Bonnie Mccoy RN - 01/09/2018Formatting of this note may be different from the original. What Esme TIA? A TIA (transient ischemic attack) is an early warning that a stroke (also called a brain at tack) is coming. A TIA is a temporary stroke. It causes no lasting damage. But the effects o f a stroke, if it happens, can be very serious and lasting. If you think you are having symp toms of a TIA or stroke even if they don t last get medical help right away. If you have any symptoms of a TIA or stroke, call 911 and your doctor as soon as possible. Symptoms of TIA and stroke Symptoms may come on suddenly and last for a few seconds or a few hours. You may have sympt oms only once. Or they may come and go for days. If you notice any of the following symptoms , don t wait. Call 911 or emergency services right away. Weakness, numbness, tingling, or loss of feeling in your face, arm, or leg Trouble seeing in one or both eyes; double vision Slurred speech, trouble talking, or problems understanding others when they speak Sudden, severe headache Dizziness or a feeling of spinning Loss of balance or falling Blackouts F.A.S.T. is an easy way to remember the signs of a stroke. When you see the signs, you will know what you need to call 911 fast. F.A.S.T. stands for: Fis for face drooping. One side of the face is drooping or numb. When the person smile s, the smile is uneven. Ais for arm weakness. One arm is weak or numb. When the person lifts both arms and the same time, one arm may drift downward. Sis for speech difficulty. You may notice slurred speech or trouble speaking. The pers on can't repeat a simple sentence correctly when asked. Tis for time to call 911. If someone shows any of these symptoms, even if they go away , call 911 right away. Make note of the time the symptoms first appeared. Date Last Reviewed: 01/20/201719999902-[address] [place] [address]. All righ ts reserved. This information is not intended as a substitute for professional medical care. Always follow your healthcare professional's instructions. Kicking the Smoking Habit If you smoke, quitting is one of the best changes you can make for your heart and your over all health. Your risk of heart attack goes down within one day of putting out that last ciga rette. As you go longer without smoking, your risk goes down even more. Quitting isn t eas y, but millions of people have done it. You can, too. It s never too late to quit. Getting started Boost your chances of success by deciding on your quit plan. Your health care provide r and cardiac rehab team can help you develop this plan. Even if you ve already quit, it s easy to slip back into smoking. Your plan can help you avoid and recover from relapse. In any case, start by setting a date to quit within a month, and do it. [place] to your quit plan Talk to your healthcare provider about prescription medicines and nicotine replacement p roducts that help stop the urge to smoke. Join a support group or quit smoking program. Talking with others about the challenges o f quitting can help you get through them. Ask other smokers in your household to quit with you. Look for the cues in your life that you associate with smoking and avoid them. Track your triggers What gives you that E-htjz-j-cigarette feeling? List all the situations that make you want a cigarette. Then think of other ways to deal with these situations. Here are some exa mples: Situation How I'll handle it Finishing a meal Get up from the table and take a walk Having an argument Find a quiet place and breathe deeply Feeling lonely or bored Call a friend to talk Tips for quitting successfully List the benefits of quitting such as reducing heart risks and saving money. Keep this l ist and review it whenever you feel like smoking. Get support. Let your friends know you may call them to chat when you have an urge to sm jeannie. If you ve tried to quit before without success, this time avoid the triggers that may cause the relapse. Make the most of slip-ups. Try to learn from them, and then get back on track. Be accountable to your friends and your calendar so that you stay on track. For family and friends Be supportive and patient. Quitting smoking can be difficult and stressful. If you smoke, now s a great time to quit. Even if you don t quit, never smoke around your loved one. Secondhand smoke is dangerous to his or her heart. The best goals are accomplished in teams. Remember that when your loved one states he or she wants to stop smoking. Date Last Reviewed: 01/21/201619997237-[address] [place] [address]. All righ ts reserved. This information is not intended as a substitute for professional medical care. Always follow your healthcare professional's instructions. in this encounter Medications at Time of Discharge + + +--------+---------+ + + | Medication | Sig. | Disp. | Refills | Start | End Date | | | | | | Date | | + + +--------+---------+ + + | aspirin 81 MG | Take 81 mg by mouth | | | | | | chewable tablet | daily with | | | | | | | breakfast. | | | | | + + +--------+---------+ + + | atorvastatin | Take 1 tablet by | 30 | 0 | 01/10/20 | | | (LIPITOR) 40 MG | mouth nightly. | tablet | | 18 | 9 | | tablet | | | | | | + + +--------+---------+ + + | clopidogrel | Take 75 mg by mouth | | | | | | (PLAVIX) 75 MG | daily. | | | | | | tablet | | | | | | + + +--------+---------+ + + | diphenhydrAMINE | Take 25 mg by mouth | | | | | | (BENADRYL) 25 mg | daily. | | | | | | capsule | | | | | | + + +--------+---------+ + + | lisinopril | Take 2.5 mg by mouth | | | | | | (ZESTRIL) 2.5 MG | daily. | | | | | | tablet | | | | | | + + +--------+---------+ + + | metoprolol | Take 25 mg by mouth | | | | | | (TOPROL-XL) 25 MG 24 | daily. | | | | | | hr tablet | | | | | | + + +--------+---------+ + + as of this encounter Progress Notes Niki Dee MSW - 01/08/2018 3:21 PM PDTFormatting of this note may be different fro m the original. 01/08/18 1520 Discharge Planning Evaluation Admitting Diagnosis left-sided weakness Readmission No Living Arrangements Children;Spouse/significant other Support Systems Spouse/significant other;Children Type of Residence Private residence House type House 2 story Steps to enter 2 Bathrooms on 1st Floor 1-Full Independent with ADL's Yes Independent with Mobility Yes Home Care Services No Mental Status Oriented Prior functional status independent with all ADLS Anticipated Discharge Plan Post Acute Care Needs None at this time Anticipated Disposition Facility Type Home Met with pt and at bedside and discussed discharge planning, Pt is a 57 y.o., male who is admitted with left-sided weakness. Pt presents appropriately, alert and oriented. Pt cho se to allow his to confirm demographics and answer questions, while he rested comfortab ly. Per pt's , pt is independent at baseline. 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 Pt is on his probationary period, and per , pt will not be allowed to return back to work. At this time, pt will be self paying and was encouraged to go in to the [facility] and apply for bre[facility]. They verbalized understanding and terrie l follow up. Pt lives at home w/ and 16yo dtr who are a support to him. Pt reports he h ad a CPAP, but lost this and insurance did not cover for another one. Pt uses no other DME o therwise. Pt aware he will be going to the [facility] and has no concerns at this time. Patient's PCP is: YUNIEL Rose - Seen last month. Patient's insurance: Self pay - Coverage concerns: will be applying for breonna care Medication coverage/concerns: yes Rx Bedside Delivery: Community resources utilized / needed: breonna care Assistance in transportation: , Karol [phone] can transport when ready. Identification of any specific education / training: none Barriers to Discharge / Alternative housing needed: TBD Anticipated DCP: likely back home Niki Dee in this encounter Plan of Treatment +--------+ + + + + | Date | Type | Specialty | Care Team | Description | +--------+ + + + + | 03/19/ | Initial | Cardiology | Chris Schneider, | | | 2018 | consult | | MD [address] | | | | | | [place], | | | | | | [place] [address] | | | | | | [phone] | | | | | | | [...] | + +--------+ + + + | [facility] CARD PANEL W/O | STAT | 01/08/2018 [...] + + + in this encounter Results Urine microscopic only (01/09/2018 11:48 AM) [...] | + + + + + | MOR Siddiqui | 1+Comment: Testing | | [facility] | | | performed at [facility], [address] | | LABORATORY | | | [facility], | | | | | [place] [address] | | | + + + + + + + + + + | Performing | Address | City/State/Zipcode | Phone Number | | Organization | | | | + + + + + | [facility] | [address] [place] [address] | [place] [address] | [phone] | | LABORATORY | [address] | | [...] + + + + + | Specific Gilbert, UA | 1.006 | 1.002 - 1.030 [...] | [facility] | | | performed at [facility], [address] | | LABORATORY | | | [address], | | | | | [place] [address] | | | + + + + + + + | Specimen | + + | Urine - Urine, Clean | | Catch | + + + + + + + | Performing | Address | City/State/Zipcode | Phone Number | | Organization | | | | + + + + + | [facility] | [address] [facility] | [place] [address] | [phone] | | LABORATORY | [address]vd[address] | | | + + + + + Echo Cardiac Adult with Bubble Study (01/09/2018 11:20 AM) + +-------+ + + | Component | Value | Ref Range | Performed At | + +-------+ + + | LV EF | 70 | 50 - 70 % | [facility] | | | | | RADIOLOGY | + +-------+ + + + + + | Impressions | Performed At | + + + | 1. Overall left ventricular systolic function is normal with, an EF | [facility] | | between 65 - 70 %. [...] ERIS PEOPLES Date of : 1960 | [facility] | | Performing Physician: Ana Stokes MD [...] TV A Asaf: 0.40 m/s TV Dec Barton: 1.66 | | | m/s2 TV Dec Time: 333.82 ms TV E Asaf: 0.55 m/s TV E/A | | | Ratio: 1.38 Network Manager: EVANGELINA Authenticated by: Ana | | | Divya BA Report Date/Time: 01-09-2018 19:9:14 | | + + + + ---------+ | Procedure Note | + ---------+ | Boyd Traylor Results In - 01/09/2018 7:09 PM PDT Patient Name: Luiz PEOPLES of | | : 1960Accession: [id number] Physician: Ana Stokes MD | | INDICATIONS STR | | JEANNIE ?? HX CAD RECENT STENT WALLA WALLACONCLUSIONS [...] (A-L): | | 14.79 ml/m2LAAs A2C: 13.39 lb4SVXIM A-L A2C: 31.09 mlLALs A2C: 4.89 cmLAAs A4C: | | 11.87 [id number] A-L A4C: 28.45 mlLALs A4C: 4.20 cmAo Diam: 3.27 cmAV Cusp: 2.20 | | cmLA Diam: 3.69 cmLA/Ao: 1.12 TAPSE: 2.53 cmIVC diameter: 2.00 cmIVC collapse: | | 0.89 cmIVC % collapse: 53.55 %AV maxP.23 mmHgAV meanP.94 mmHgAV Vmax: | | 1.14 m/Mukul Vmean: 0.80 m/Mukul VTI: 27.23 cmAVA Vmax: 3.45 cm2AVA (VTI): 3.20 | | wm6LSMD Vmax: 0.00 cm2/m2AVAI (VTI): 0.00 cm2/m2LVOT maxP.67 [...] A Asaf: | | 0.40 m/sTV Dec Barton: 1.66 m/s2TV Dec Time: 333.82 msTV E Asaf: 0.55 m/sTV E/A | | Ratio: 1.38 Network Manager: KVWAuthenticated by: Ana Stokes MDReport Date/Time: | | [...] A Asaf: 0.40 m/s | |TV Dec Barton: 1.66 m/s2 | |TV Dec Time: 333.82 ms | |TV E Asaf: 0.55 m/s | |TV E/A Ratio: 1.38 | | | |Network Manager: KVW | |Authenticated by: Ana Stokes MD [...] + + + + + | [facility] | [address] | [place] [address] | | + + + + + Ultrasound carotid doppler bilateral (01/09/2018 6:03 AM) + + + | Impressions | Performed At | + + + | 1. Mild bilateral carotid plaquing without significant stenosis. | [facility] | | 2. Antegrade flow in both [...] Jan 09 2018 6:42AM Referring Provider Line: [phone] ID: | | | [id number] | | + + + + + + | Narrative | Performed At | + + + | EXAM: CAROTID DOPPLER ULTRASOUND EXAM DATE: 01/09/2018 06:04 AM. | [facility] | | CLINICAL HISTORY: Acute left-sided weakness. Stroke. | RADIOLOGY | | COMPARISON: None. TECHNIQUE: Real-time sonographic vascular | | | imaging was performed by the solar designer/installer through the carotid arterial | | | system with a linear transducer utilizing color-flow, Doppler flow and | | | spectral analysis. Multiple veterans employment representative static images were saved | | [...] | Procedure Note | + + | Boyd Traylor Results In - 01/09/2018 6:42 AM PDT EXAM:CAROTID DOPPLER ULTRASOUNDEXAM | | DATE: 01/09/2018 06:04 AM.CLINICAL HISTORY: Acute left-sided weakness. Stroke.COMPARISON: | | None.TECHNIQUE: Real-time sonographic vascular imaging was performed by the solar designer/installer | | through the carotid arterial system with a linear transducer utilizing color-flow, | | Doppler flow and spectral analysis. Multiple veterans employment representative static images were saved for | [...] Jan 09 2018 6:42AM Referring Provider Line: [phone] ID: [id number] | |Vertebral Mid: PSV 45 [...] 09 2018 6:42AM Referring Provider Line: [phone] ID: [id number] | + + + + + + + | Performing | Address | City/State/Zipcode | Phone Number | | Organization | | | | + + + + + | [facility] | [address] | [place] [address] | | + + + + + Magnesium (01/09/2018 4:57 AM) + + + + + | Component | Value | Ref Range | Performed At | + + + + + | MAGNESIUM | 1.8Comment: Testing | 1.7 - 2.4 mg/dL | [facility] | | | performed at [facility], [address] | | LABORATORY | | | [address], | | | | | [place] [address] | | | + + + + + + + | Specimen | + + | Blood | + + + + + + + | Performing | Address | City/State/Zipcode | Phone Number | | Organization | | | | + + + + + | [facility] | [address] [facility] | [place] [address] | [phone] | | LABORATORY | [address]vd[address] | | [...] | [facility] | | | performed at [facility], [address] | | LABORATORY | | | [address], | | | | | [place] [address] | | | + + + + + + + | Specimen | + + | Blood | + + + + + + + | Performing | Address | City/State/Zipcode | Phone Number | | Organization | | | | + + + + + | [facility] | [address] [facility] | [place] [address] | [phone] | | LABORATORY | [address]vd[address] | | | + + + + + Glycohemoglobin A1c (01/09/2018 4:57 AM) + + + + + | Component | Value | Ref Range | Performed At | + + + + + | HEMOGLOBIN A1C | 6.1 (H)Comment: The | 4.0 - 6.0 % | [facility] | | | [place] [facility] | | LABORATORY | | | [...] | 128Comment: The ADA | mg/dL | [facility] | | GLUCOSE | considers an eAG [...] | | | | | performed at [facility], [address] | | | | | [facility], | | | | | [place] [address] | | | + + + + + + + | Specimen | + + | Blood | + + + + + + + | Performing | Address | City/State/Zipcode | Phone Number | | Organization | | | | + + + + + | [facility] | [address] [facility] [address] | [place] [address] | [phone] | | LABORATORY | [address] | | [...] performed at | | | | | [facility], [address] [facility] | | | | | [place] | | | | | [place] [address] | | | + + + + + + + | Specimen | + + | Blood | + + + + + + + | Performing | Address | City/State/Zipcode | Phone Number | | Organization | | | | + + + + + | [facility] | [address] [facility] [address] [facility] | [place] [address] | [phone] | | LABORATORY | [place] | | [...] | [facility] | | | performed at [facility], [address] | | LABORATORY | | | [address], | | | | | [place] [address] | | | + + + + + + + | Specimen | + + | Blood | + + + + + + + | Performing | Address | City/State/Zipcode | Phone Number | | Organization | | | | + + + + + | [facility] | [address] [facility] [facility] | [place] [address] | [phone] | | LABORATORY | Blvd. | | [...] AND MRA HEAD 01/08/2018 9:16 PM | [facility] | | HISTORY: 57 years. Male. Acute left-sided weakness. Acute | RADIOLOGY | | embolic stroke. TECHNIQUE: Imaging was performed on a 1.5 Myara | | | MRI system. Multiplanar sequences were acquired according to a | | | standard department protocol without contrast. A 3D noncontrast | | | [id number] MRA sequence was acquired through the | [...] In - 01/08/2018 9:57 PM PDT ERIS PEOPLESSanti BRAIN WO AND MRA | | HEAD01/08/2018 9:16 PMHISTORY:57 years. Male. Acute left-sided weakness. Acute embolic | | stroke.TECHNIQUE:Imaging was performed on a 1.5 Mayra MRI system. Multiplanar | | sequences were acquired according to a standard department protocol without contrast. | | A 3D noncontrast [id number] MRA sequence was acquired through the head. [...] | + + + + + | [facility] | [address] | [place] [address] | | + + + + + CT Head Non-Contrast (01/08/2018 1:27 PM) + + + | Impressions | Performed At | + + + | 1. Brain is negative for acute pathology. Electronically | [facility] | | signed by Ranjit Estrella MD on 01/08/2018 1:28 PM | RADIOLOGY | + + + + + + | Narrative | Performed At | + + + | ERIS PEOPLES 57 years Male HISTORY: Headache and left-sided [...] In - 01/08/2018 1:33 PM PDT ERIS Malave RICHELLE 57 years | | MaleHISTORY:Headache and left-sided [...] + + + + + | [facility] | [address] | [place] [address] | | + + + + + XR Chest PA and Lateral (01/08/2018 1:19 PM) + + + | Impressions | Performed At | + + + | No radiographic evidence of acute cardiopulmonary disease. | [facility] | | | RADIOLOGY | + + + + + + | Narrative | Performed At | + + + | ERIS PEOPLES XR CHEST 2 VIEW FRONTAL AND LATERAL 01/08/2018 | [facility] | | 1:19 PM HISTORY: 57 years. [...] In - 01/08/2018 1:26 PM PDT ERIS PEOPLESXR CHEST 2 VIEW FRONTAL | | AND [...] | + + + + + | [facility] | [address] | [place] [address] | | + + + + + Troponin I (01/08/2018 12:45 PM) + + + + + | Component | Value | Ref Range | Performed At | + + + + + | TROPONIN I | <0.04Comment: 0.00 to | 0.00 - 0.10 ng/mL | [facility] | | | 0.10 CONSISTENT WITH | | | | | NORMAL POPULATION0.11 | | | | | to 0.60 CONSISTENT | | | | | WITH INCREASED RISK FOR | | | | | ADVERSE OUTCOMES> | | | | | 0.60 | | | | | CONSISTENT WITH WHO | | | | | CRITERIA FOR ACUTE [place] | | | | | Testing performed at | | | | | [facility], [address], | | | | | [place] [address] | | | + + + + + + + | Specimen | + + | Blood | + + + + + + + | Performing | Address | City/State/Zipcode | Phone Number | | Organization | | | | + + + + + | [facility] | [address] | [facility] [address] | | + + + + + Cardiac Panel (01/08/2018 12:45 PM) + + + + + | Component | Value | Ref Range | Performed At | + + + + + | WBC | 14.08 (H) | 3.80 - 11.00 K/uL | [facility] | + + + + + | RBC | 5.35 | 4.20 - 5.70 M/uL | [facility] | + + + + + | HGB | 17.0 | 13.2 - 17.0 g/dL | [facility] | + + + + + | HCT | 49.5 | 39.0 - 50.0 % | [facility] | + + + + + | MCV | 92.6 | 80.0 - 100.0 fl | [facility] | + + + + + | MCH | 31.8 | 27.0 - 34.0 pg | [facility] | + + + + + | MCHC | 34.3 | 32.0 - 35.5 g/dL | [facility] | + + + + + | RDW SD | 46.8 | 37 - 53 fl | [facility] | + + + + + | PLT | 210 | 150 - 400 K/uL | [facility] | + + + + + [...] (H) | 1.90 - 7.40 K/uL | [facility] | + + + + + | LYMPHOCYTES ABS | 4.18 (H) | 1.00 - 3.90 K/uL | [facility] | + + + + + | MONOCYTES ABS | 1.07 (H) | 0.00 - 0.80 K/uL | [facility] | + + + + + | EOSINOPHILS ABS | 0.15 | 0.00 - 0.50 K/uL | [facility] | + + + + + | BASOPHILS ABS | 0.14 (H) | 0.00 - 0.10 K/uL | [facility] | + + + + + | SODIUM | 145 | 135 - 145 mmol/L | [facility] | + + + [...] 8.9 | 8.5 - 10.5 mg/dL | [facility] | + + + + + | TOTAL PROTEIN | 7.5 | 6.3 - 8.2 g/dL | [facility] | + + + + + | Albumin | 3.8 | 3.6 - 5.0 g/dL | [facility] | + + + + + | GLOBULIN | 3.7 | 1.3 - 4.9 g/dL | [facility] | + + + + + | A/G | 1.0 | 1.0 - 2.4 | [facility] | + + + + + | TBIL | 0.3 | 0.1 - 1.5 mg/dL | [facility] | + + + + + | ALK PHOS | 96 | 35 - 115 U/L | [facility] | + + + + + | AST | 14 | 10 - 45 U/L | [facility] | + + + + + | ALT | 24 | 10 - 65 U/L | [facility] | + + + + + | EGFR | >60Comment: GFR <60: | >60 mL/min/1.73m2 | [facility] | | | CHRONIC KIDNEY DISEASE, [...] the | | | | | MDRD [facility] traceable | | | | | equation. PLEASE NOTE | | | | | NEW CALCULATION | | | | | EFFECTIVE 12/18/2017 | | | + + + + + | CPK | 52 (L) | 55 - 400 U/L | [facility] | + + + + + | INR | 0.9Comment: REFERENCE | | [facility] | | | RANGE:0.9 - | [...] 27 | 23 - 32 seconds | [facility] | + + + + + | MMB | 0.9 | 0.5 - 3.6 ng/mL | [facility] | + + + + + | CK-MB Index | 1.7Comment: CK INDEX | | [facility] | | | INTERPRETATION: | | [...] | | | | | performed at [facility], [address], | | | | | [place] [address] | | | + + + + + + + + + + | Performing | Address | City/State/Zipcode | Phone Number | | Organization | | | | + + + + + | [facility] | [address] | [place] [address] | | + + + + + [...] + + + + | Calculated P [place] | 34 | degrees | [facility] | + + + + + | Calculated R [place] | -31 | degrees | [facility] | + + + + + | Calculated T [place] | 32 | degrees | [facility] | + + + + + | Diagnosis | Normal sinus rhythmLeft | | [facility] | | | axis deviationInferior | [...] | | | | | ONLY, -COMPUTER (229), | | | | | non linear editor Nguyễn Garcia | | | | | [place] (123) on 01/09/2018 | | | | | 1:16:57 AM | | | + + + + + + + + + + | Performing | Address | City/State/Zipcode | Phone Number | | Organization | | | | + + + + + | [facility] | [address] | [place] [address] | | + + + + + in this encounter Visit Diagnoses + + | Diagnosis | + + | Slurred speech - Primary | + + | Other speech disturbance | + + | Acute embolic stroke (HCC) | + + | Cerebral embolism with cerebral infarction | + + | Acute left-sided weakness | + + | Hemiplegia, unspecified, affecting unspecified side | + + | Essential hypertension | + + | Unspecified essential hypertension | + + | Dyslipidemia | + + | Other and unspecified hyperlipidemia | + + | CAD (coronary artery disease) | + + | Coronary atherosclerosis of unspecified type of vessel, makah or graft | + + | Leukocytosis | + + | Leukocytosis, unspecified | + + | Transient weakness of left lower extremity | + + Admitting Diagnoses + + | Diagnosis | + + | Acute left-sided weakness | + + | Hemiplegia, unspecified, affecting unspecified side | + + | Acute embolic stroke (HCC) | + + | Cerebral embolism with cerebral infarction | + + Administered Medications + +--------+---------+------+------+------+ | Medication Order | MAR | Action | Dose | Rate | Site | | | Action | Date | | | | + +--------+---------+------+------+------+ + +---+ | acetaminophen (TYLENOL) | | | suppository 650 mg 650 mg, | | | Rectal, Every 6 Hours PRN, Mild | | | Pain (1-3), Fever, Starting Tue | | | 01/08/18 at 1918 | | + +---+ | | | + +---+ | acetaminophen (TYLENOL) tablet | | | 650 mg 650 mg, Oral, Every 6 | | | Hours PRN, Mild Pain (1-3), | | | Fever, Starting 01/08/18 at | | | 1918 | | + +---+ | | | + +---+ | aspirin suppository 300 mg 300 | | | mg, Rectal, Daily With | | | Breakfast, First dose on Sun | | | 01/09/18 at 1930 | | + +---+ | | | + +---+ + +-------+ +--------+---+---+ | aspirin tablet 325 mg 325 mg, | Given | | 325 mg | | | | Oral, Daily With Breakfast, First | | 8 19:55 | | | | | dose on Sun01/09/18 at 1930 | | PDT | | | | + +-------+ +--------+---+---+ +---+---+ | | | +---+---+ + +-------+ +-------+---+---+ | atorvastatin (LIPITOR) tablet | Given | | 80 mg | | | | 80 mg 80 mg, Oral, Nightly, | | 8 21:29 | | | | | First dose on Sun01/08/18 at 2200 | | PDT | | | | + +-------+ +-------+---+---+ +-------+ +-------+---+---+ | Given | | 80 mg | | | | | 8 19:55 | | | | | | PDT | | | | +-------+ +-------+---+---+ +---+---+ | | | +---+---+ + +-------+ +-------+---+---+ | enoxaparin (LOVENOX) injection | Given | | 40 mg | | | | 40 mg 40 mg, Subcutaneous, Every | | 8 20:10 | | | | | 24 Hours, First dose on Sun | | PDT | | | | | 01/08/18 at 2000 | | | | | | + +-------+ +-------+---+---+ + +---+ | | | + +---+ | ondansetron (ZOFRAN) injection | | | 4 mg 4 mg, Intravenous, Every 6 | | | Hours PRN, Nausea, Vomiting, | | | Starting 01/08/18 at 1918 | | + +---+ | | | + +---+ | ondansetron (ZOFRAN-ODT) | | | disintegrating tablet 4 mg 4 mg, | | | Oral, Every 6 Hours PRN, Nausea, | | | Vomiting, Starting 01/08/18 | | | at 1918 | | + +---+ | | | + +---+ + +-------+ +--------+---+---+ | sodium chloride (PF) 0.9 % | Given | | 10 mLs | | | | flush 10 mL 10 mL, Intravenous, | | 8 12:59 | | | | | Every 8 Hours, First dose on Tue | | PDT | | | | | 01/08/18 at 1248 | | | | | | + +-------+ +--------+---+---+ +-------+ +--------+---+---+ | Given | | 10 mLs | | | | | 8 20:12 | | | | | | PDT | | | | +-------+ +--------+---+---+ +---+---+ | | | +---+---+ + +---------+ +---+ +---+ | sodium chloride 0.9 % infusion | New Bag | | | 75 mL/hr | | | at 75 mL/hr, Intravenous, | | 8 20:10 | | | | | Continuous, Starting 01/08/18 | | PDT | | | | | at 2000 | | | | | | + +---------+ +---+ +---+ +---+---+ | | | +---+---+ in this encounter
--- OUTSIDE RECORDS SUMMARY | ~2018-03-10 | XMS | Encounter Summary ---
Demographics + + + | Address | [address] | | | [place] [address] | + + + | Home Phone | | + + + | Preferred Language | Unknown | + + + | Marital Status | Single | + + + | Adventism Affiliation | 1013 | + + + | Race | Unknown | + + + | Ethnic Group | Unknown | + + + Author + + + | Author | [facility] | + + + | Organization | [facility] | + + + | Address | Unknown | + + + | Phone | Unavailable | + + + Support + + +---------+ + | Name | Relationship | Address | Phone | + + +---------+ + | Karol Ho | ECON | Unknown | | + + +---------+ + Care Team Providers + +------+ + | Care Cut Off Machine Operator Name | Role | Phone | + +------+ + | Herberth Jude Magali BRICE | PCP | | + +------+ + Encounter Details +--------+ + + + + | Date | Type | Department | Care Team | Description | +--------+ + + + + | 01/08/ | Procedure | [facility] | | | | 2018 | [facility] | [address] | | | | | | [facility] | | | | | | [address] | | | | | | [place] [address] | | | | | | [phone] | | | +--------+ + + + [...] | | | | | | [place] [address] | | | | | | [phone] | | | | | | | | +--------+ + + + + as of this encounter Visit Diagnoses Not on filein this encounter"
--- OUTSIDE RECORDS SUMMARY | ~2018-03-10 | XMS | Clinical Summary ---
Demographics + + + | Address | [address] | | | [place] [address] | + + + | Home Phone | | + + + | Preferred Language | Unknown | + + + | Marital Status | Single | + + + | Orthodoxy Affiliation | CHR | + + + [...] Team Providers + +------+ + | Care Production Supervisor Off Shift Name | Role | Phone | + +------+ + PP | Unavailable | + +------+ + Source Comments [facility] is fully live on both [facility] and [facility] Allergies Not on File Current [...] | | | + +--------+ +--------+-------+---------+ | [facility] | | xxxxxxxxx | Agency | | [...] | 1961 | [phone] | [place] [address] | | | jeremy | | | [phone] | | + +--------+ +--------+ + +"
--- OUTSIDE RECORDS SUMMARY | ~2018-03-10 | XMS | Clinical Summary ---
Demographics + + + | Address | [address] | | | [place] [address] | + + + | Home Phone | | + + + | Preferred Language | Unknown | + + + | Marital Status | Single | + + + | Methodist Affiliation | 1013 | + + + | Race | Unknown | + + + | Ethnic Group | Unknown | + + + Author + + + | Author | [employer] | + + + | Organization | [facility] | + + + | Address | Unknown | + + + | Phone | Unavailable | + + + Support + + +---------+ + | Name | Relationship | Address | Phone | + + +---------+ + | Karol Peoples | ECON | Unknown | | + + +---------+ + Care Team Providers + +------+ + | Care Account Contact Associate Name | Role | Phone | + [...] | Acute cerebrovascular accident (CVA) ([facility]) | 01/09/20 | | | [...] | | | MRN: | | | [id number] | | | te of | | [...] | | recently | | | and SC was | | | ruled out | [...] | | | Line: | | | [phone] | | | 5SITE ID: | | [...] | | | [place], | | | [id number] | | | [place] | | | [address] | | | n [place] | | | [phone] | | [phone] | | | [...] | | | | | | [place] [address] | | | | | | [phone] | | | | | | | [...] | [facility] | | | performed at [facility], [address] | | LABORATORY | | | [address], | | | | | [place] [address] | | | + + + + + + + + + + | Performing | Address | City/State/Zipcode | Phone Number | | Organization | | | | + + + + + | [facility] | [address] | [place] [address] | [phone] | | LABORATORY | [address] | | [...] + + + + + | Specific [place], UA | 1.006 | 1.002 - 1.030 [...] | [facility] | | | performed at [facility], [address] | | LABORAT[address] | | | [address], | | | | | [place] [address] | | | + + + + + + + | Specimen | + + | Urine - Urine, Clean | | Catch | + + + + + + + | Performing | Address | City/State/Zipcode | Phone Number | | Organization | | | | + + + + + | [facility] | [address] | [place] [address] | [phone] | | LABORATORY | [place] | | [...] ERIS PEOPLES Date of : 1960 | [facility] | | Performing Physician: Ana Stokes [...] TV A Asaf: 0.40 m/s TV Dec Ford: 1.66 | | | m/s2 TV Dec Time: 333.82 ms TV E Asaf: 0.55 m/s TV E/A | | | Ratio: 1.38 Munitions Worker: EVANGELINA Authenticated by: Ana | | | Divya BA Report Date/Time: 01-09-2018 19:9:14 | | + + + + ---------+ | Procedure Note | + ---------+ | Layton, Rad Results In - 01/09/2018 7:09 PM PDT Patient Name: Luiz PEOPLES of | | : 1960Accession: [id number] Physician: Ana Stokes MD | | INDICATIONS [...] (A-L): | | 14.79 ml/m2LAAs A2C: 13.39 [id number] A-L A2C: 31.09 mlLALs A2C: 4.89 cmLAAs A4C: | | 11.87 [id number] A-L A4C: 28.45 mlLALs A4C: 4.20 cmAo Diam: 3.27 cmAV Cusp: 2.20 | | cmLA Diam: 3.69 cmLA/Ao: 1.12 TAPSE: 2.53 cmIVC diameter: 2.00 cmIVC collapse: | | 0.89 cmIVC % collapse: 53.55 %AV maxP.23 mmHgAV meanP.94 mmHgAV Vmax: | | 1.14 m/Mukul Vmean: 0.80 m/Mukul VTI: 27.23 cmAVA Vmax: 3.45 cm2AVA (VTI): 3.20 | | [id number] Vmax: 0.00 cm2/m2AVAI (VTI): 0.00 cm2/m2LVOT maxP.67 [...] A Asaf: | | 0.40 m/sTV Dec Ford: 1.66 m/s2TV Dec Time: 333.82 msTV E Asaf: 0.55 m/sTV E/A | | Ratio: 1.38 Munitions Worker: IRENEWAuthenticated by: Ana Stokes MDReport Date/Time: | [...] A Asaf: 0.40 m/s | |TV Dec Ford: 1.66 m/s2 | |TV Dec Time: 333.82 ms | |TV E Asaf: 0.55 m/s | |TV E/A Ratio: 1.38 | | | |Munitions Worker: KVW | |Authenticated by: Ana Stokes MD [...] | + + + + + | [facility] | [address] | [place] [address] | | + + + + + [...] Jan 09 2018 6:42AM Referring Provider Line: [phone] ID: | | | [id number] | | + + + + + + | Narrative | Performed At | + + + | EXAM: CAROTID DOPPLER ULTRASOUND EXAM DATE: 01/09/2018 06:04 AM. | [facility] | | CLINICAL HISTORY: Acute left-sided weakness. Stroke. | RADIOLOGY | | COMPARISON: None. TECHNIQUE: Real-time sonographic vascular | | | imaging was performed by the psychiatric np through the carotid arterial | | | system with a linear transducer utilizing color-flow, Doppler flow and | | | spectral analysis. Multiple manufacturers service representative static images were saved | [...] sonographic vascular imaging was performed by the psychiatric np | | through the carotid arterial system with a linear transducer utilizing color-flow, | | Doppler flow and spectral analysis. Multiple manufacturers service representative static images were saved for [...] Jan 09 2018 6:42AM Referring Provider Line: [phone] ID: [id number] | |Vertebral Mid: PSV 45 [...] 09 2018 6:42AM Referring Provider Line: [phone] ID: [id number] | + + + + + + + | Performing | Address | City/State/Zipcode | Phone Number | | Organization | | | | + + + + + | [facility] | [address] | [facility] [place] [place] [address] | | + + + + + [...] | [facility] | | | performed at [facility], [address] | | LABORATORY | | | [address], | | | | | [place] [address] | | | + + + + + + + | Specimen | + + | Blood | + + + + + + + | Performing | Address | City/State/Zipcode | Phone Number | | Organization | | | | + + + + + | [facility] | [address] [place] [address] | [place] [address] | [phone] | | LABORATORY | [address] | | | + + + + + Magnesium (01/09/2018 4:57 AM) + + + + + | Component | Value | Ref Range | Performed At | + + + + + | MAGNESIUM | 1.8Comment: Testing | 1.7 - 2.4 mg/dL | [facility] | | | performed at [facility], [address] | | LABORATORY | | | [facility], | | | | | [place] [address] | | | + + + + + + + | Specimen | + + | Blood | + + + + + + + | Performing | Address | City/State/Zipcode | Phone Number | | Organization | | | | + + + + + | [facility] | [address] [facility] | [place] [address] | [phone] | | LABORATORY | [address] | | | + + + + + Glycohemoglobin A1c (01/09/2018 4:57 AM) + + + + + | Component | Value | Ref Range | Performed At | + + + + + | HEMOGLOBIN A1C | 6.1 (H)Comment: The | 4.0 - 6.0 % | [facility] | | | [place] Diabetes | | LABORATORY | | | [...] | 128Comment: The ADA | mg/dL | [facility] | | GLUCOSE | considers [...] | | | | | performed at [facility], [address] | | | | | [facility], | | | | | [place] [address] | | | + + + + + + + | Specimen | + + | Blood | + + + + + + + | Performing | Address | City/State/Zipcode | Phone Number | | Organization | | | | + + + + + | [facility] | [address] | [place] [address] | [phone] | | LABORATORY | [address] | | [...] | [facility] | | | performed at [facility], [address] | | LABORATORY | | | [address], | | | | | [place] [address] | | | + + + + + + + | Specimen | + + | Blood | + + + + + + + | Performing | Address | City/State/Zipcode | Phone Number | | Organization | | | | + + + + + | [facility] | [address] [facility] [address] | [place] [address] | [phone] | | LABORATORY | [address] | | [...] performed at | | | | | [facility], [address] [place] [address] | | | | | [place], | | | | | [place] [address] | | | + + + + + + + | Specimen | + + | Blood | + + + + + + + | Performing | Address | City/State/Zipcode | Phone Number | | Organization | | | | + + + + + | [facility] | [address] [facility] | [place] [address] | [phone] | | LABORATORY | [place] | | [...] AND MRA HEAD 01/08/2018 9:16 PM | [facility] | | HISTORY: 57 years. Male. Acute left-sided weakness. Acute | RADIOLOGY | | embolic stroke. TECHNIQUE: Imaging was performed on a 1.5 Mayra | | | MRI system. Multiplanar sequences were acquired according to a | | | standard department protocol without contrast. A 3D noncontrast | | | iqcl-fr-rwtqhx MRA sequence was acquired through the | [...] In - 01/08/2018 9:57 PM PDT [facility] | | HEAD01/08/2018 9:16 PMHISTORY:57 years. Male. Acute left-sided weakness. Acute embolic | | stroke.TECHNIQUE:Imaging was performed on a 1.5 Mayra MRI system. Multiplanar | | sequences were acquired according to a standard department protocol without contrast. | | A 3D noncontrast qfga-fy-yzfidx MRA sequence was acquired through the head. [...] | + + + + + | [facility] | [address] | [place] [address] | | + + + + + [...] | + + + + + | [facility] | [address] | [place] [address] | | + + + + + [...] [facility] | [address] | [place] [address] | | + + + + + Cardiac Panel (01/08/2018 12:45 PM) + + + + + | Component | Value | Ref Range | Performed At | + + + + + | WBC | 14.08 (H) | 3.80 - 11.00 K/uL | [facility] | + + + + + | RBC | 5.35 | 4.20 - 5.70 M/uL | [facility] | + + + + + | HGB | 17.0 | 13.2 - 17.0 g/dL | [facility] | + + + + + | HCT | 49.5 | 39.0 - 50.0 % | [facility] | + + + + + | MCV | 92.6 | 80.0 - 100.0 fl | [facility] | + + + + + | MCH | 31.8 | 27.0 - 34.0 pg | [facility] | + + + + + | MCHC | 34.3 | 32.0 - 35.5 g/dL | [facility] | + + + + + | RDW SD | 46.8 | 37 - 53 fl | [facility] | + + + + + | PLT | 210 | 150 - 400 K/uL | [facility] | + + + [...] 8.9 | 8.5 - 10.5 mg/dL | [facility] | + + + + + | TOTAL PROTEIN | 7.5 | 6.3 - 8.2 g/dL | [facility] | + + + + + | Albumin | 3.8 | 3.6 - 5.0 g/dL | [facility] | + + + + + | GLOBULIN | 3.7 | 1.3 - 4.9 g/dL | [facility] | + + + + + | A/G | 1.0 | 1.0 - 2.4 | [facility] | + + + + + | TBIL | 0.3 | 0.1 - 1.5 mg/dL | [facility] | + + + + + | ALK PHOS | 96 | 35 - 115 U/L | [facility] | + + + + + | AST | 14 | 10 - 45 U/L | [facility] | + + + + + | ALT | 24 | 10 - 65 U/L | [facility] | + + + + + | EGFR | >60Comment: GFR <60: | >60 mL/min/1.73m2 | [facility] | | | CHRONIC [...] the | | | | | MDRD [facility] traceable | | | | | equation. PLEASE NOTE | | | | | NEW CALCULATION | | | | | EFFECTIVE 12/18/2017 | | | + + + + + | CPK | 52 (L) | 55 - 400 U/L | [facility] | + + + + + | INR | 0.9Comment: REFERENCE | | [facility] | | | RANGE:0.9 [...] 27 | 23 - 32 seconds | [facility] | + + + + + | MMB | 0.9 | 0.5 - 3.6 ng/mL | [facility] | + + + + + | CK-MB Index | 1.7Comment: CK INDEX | | [facility] | | | INTERPRETATION: [...] | | | | | performed at [facility], [address] | | | | [address] [place], | | | | | [place] [address] | | | + + + + + + + + + + | Performing | Address | City/State/Zipcode | Phone Number | | Organization | | | | + + + + + | [facility] | [address] | [place] [address] | | + + + + + Troponin I (01/08/2018 12:45 PM) + + + + + | Component | Value | Ref Range | Performed At | + + + + + | TROPONIN I | <0.04Comment: 0.00 to | 0.00 - 0.10 ng/mL | [facility] | | | 0.10 CONSISTENT WITH | | | | | NORMAL POPULATION0.11 | | | | | to 0.60 CONSISTENT | | | | | WITH INCREASED RISK FOR | | | | | ADVERSE OUTCOMES> | | | | | 0.60 | | | | | CONSISTENT WITH WHO | | | | | CRITERIA FOR ACUTE SC | | | | | Testing performed at | | | | | [facility], [address], | | | | | [place] [address] | | | + + + + + + + | Specimen | + + | Blood | + + + + + + + | Performing | Address | City/State/Zipcode | Phone Number | | Organization | | | | + + + + + | [facility] | [address] | [facility] [address] | | + + + + + [...] + + + + | Calculated P [place] | 34 | degrees | [facility] | + + + + + | Calculated R [place] | -31 | degrees | [facility] | + + + + + | Calculated T [place] | 32 | degrees | [facility] | + + + + + | Diagnosis | Normal sinus rhythmLeft | | [facility] | | | axis [...] -COMPUTER (500), | | | | | material expeditor Nguyễn Garcia | | | | | Kleber (123) on 01/09/2018 | | | | | 1:16:57 AM | | | + + + + + + + + + + | Performing | Address | City/State/Zipcode | Phone Number | | Organization | | | | + + + + + | [facility] | [address] | [place] [address] | | + + + + + [...] | [employer] | [facility]DS | [id number] | | | | | | HEALTH [...] | | | jeremy | | | [address] | [phone] | + +--------+ +--------+ + +
--- OUTSIDE RECORDS SUMMARY | ~2018-03-10 | XMS | Encounter Summary ---
Demographics + + + | Address | [address] | | | [place] [address] | + + + | Home Phone | | + + + | Preferred Language | Unknown | + + + | Marital Status | Single | + + + | Confucianist Affiliation | 1013 | + + + | Race | Unknown | + + + | Ethnic Group | Unknown | + + + Author + + + | Author | Julee DraftDay | + + + | Organization | [facility] [employer] | + + + | Address | Unknown | + + + | Phone | Unavailable | + + + Support + + +---------+ + | Name | Relationship | Address | Phone | + + +---------+ + | Karol Peoples | ECON | Unknown | | + + +---------+ + Care Team Providers + +------+ + | Care Classroom Coordinator Name | Role | Phone | + +------+ + | Herberth Jude Magali BRICE | PCP | | + +------+ + Reason for Visit + + + | Reason | Comments | + + + | Chest Pain | radiates to left arm heaviness intermittent since sunday and | | | worked up on sunday in [facility]. everything negative and sent | | | [...] | | Internal | Diagnoses | | [facility] | | | | Medicine | Acute | | [facility] | | | | | left-sided | | [address] | | | | | weakness | | [address] | | | | | Acute | | [place], [place] | | | | | embolic | | [address] Phone: | | | | | stroke ([facility]) | | [phone] | | | | | | | | +--------+--------+ + + + + Encounter Details +--------+ + + + + | Date | Type | Department | Care Team | Description | +--------+ + + + + | 01/08/ | Hospital | [facility] | Estefania Garcia, | Acute left-sided | | 2018 - | Encounter | [address] | MD José PRIESTVD | weakness (Primary | | | | [facility] | EMERGENCY DEPARTMENT | Dx); Acute embolic | | 01/09/ | | [address] | [place] [address] | stroke (HCC) | | 2018 | | [place] [address] | [phone] | | | | | [phone] | | | | | | | Tommy Saez DO [address] | | | | | | [address] | | | | | | [place], [place] | | | | | | [address] | | | | | | [phone] | | | | | | | | | | | | Jamie Castro MD | | | | | | [address] | | | | | | [place] [address] | | | | | | [phone] | | | | | | | [...] since sunday and worked up on in [facility]. everything negative and sent home); Headache; and Extremity Weakness (left arm since sunday, increasing weakness) Hospital Course: Eris Peoples is a 57 y.o. male with htn, CAD with stents, hld who was admitted on 2017 with complaints of slurred speech and left sided weakness. Apparently the symptoms had began about 3 days ago. He also was seen in [place] for chest pain recently and [place] was [...] Jan 09 2018 6:42AM Referring Provider Line: [phone] ID: [id number] Mri Brain Without Contrast And [...] Information: Follow up: Jude Kevin, YUNIEL [address] [facility] [place] [id number] Schedule an appointment as soon as possible [...] the symptoms first appeared. Date Last Reviewed: 01/20/201719997938-7758 [employer] [address] [place] [address]. All righ ts reserved. This information is [...] quit within a month, and do it. [place] to your quit plan Talk to your [...] Track your triggers What gives you that B-wgyw-s-cigarette feeling? List all the situations that make [...] wants to stop smoking. Date Last Reviewed: 01/21/201619996602-2306 [employer] [address] [place] [address]. All righ ts reserved. This information is [...] [facility] They verbalized understanding and terrie l follow up. Pt lives at home w/ and 16yo dtr who are a support to him. Pt reports he h ad a CPAP, but lost this and insurance did not cover for another one. Pt uses no other DME o therwise. Pt aware he will be going to the [facility] and has no concerns at this time. Patient's PCP is: YUNIEL Rose - Seen last month. Patient's insurance: Self pay - Coverage concerns: will be applying for breonna care Medication coverage/concerns: yes Rx Bedside Delivery: Community resources utilized / needed: breonna care Assistance in transportation: , Karol [phone] can transport when ready. Identification of any [...] [place], | | | | | | [place] [address] | | | | | | [phone] | | | | | | | [...] | + +--------+ + + + | [facility] CARD PANEL W/O | STAT | 01/08/2018 [...] MOR Siddiqui | 1+Comment: Testing | | [facility] | | | performed at [facility], [address] | | LABORATORY | | | [facility], | | | | | [place] [address] | | | + + + + + + + + + + | Performing | Address | City/State/Zipcode | Phone Number | | Organization | | | | + + + + + | [facility] | [address] [place] [address] | [place] [address] | [phone] | | LABORATORY | [address]vd[address] | | [...] + + + + + | Specific [place], UA | 1.006 | 1.002 - 1.030 [...] | [facility] | | | performed at [facility], [address] | | LABORATORY | | | [address], | | | | | [place] [address] | | | + + + + + + + | Specimen | + + | Urine - Urine, Clean | | Catch | + + + + + + + | Performing | Address | City/State/Zipcode | Phone Number | | Organization | | | | + + + + + | [facility] | [address] [facility] | [place] [address] | [phone] | | LABORATORY | Blvd. | | [...] ERIS PEOPLES Date of : 1960 | [facility] | | Performing Physician: Ana [...] TV A Asaf: 0.40 m/s TV Dec [place]: 1.66 | | | m/s2 TV Dec Time: 333.82 ms TV E Asaf: 0.55 m/s TV E/A | | | Ratio: 1.38 Ditcher: EVANGELINA Authenticated by: Ana | | | Divya BA Report Date/Time: 01-09-2018 19:9:14 | | + + + + ---------+ | Procedure Note | + ---------+ | Boyd Traylor Results In - 01/09/2018 7:09 PM PDT Patient Name: Luiz PEOPLES of | | : 1960Accession: [id number] Physician: Ana Stokes MD | | INDICATIONS [...] (A-L): | | 14.79 ml/m2LAAs A2C: 13.39 vn2ONSLW A-L A2C: 31.09 mlLALs A2C: 4.89 cmLAAs A4C: | | 11.87 uo4CHYCM A-L A4C: 28.45 mlLALs A4C: 4.20 cmAo Diam: 3.27 cmAV Cusp: 2.20 | | cmLA Diam: 3.69 cmLA/Ao: 1.12 TAPSE: 2.53 cmIVC diameter: 2.00 cmIVC collapse: | | 0.89 cmIVC % collapse: 53.55 %AV maxP.23 mmHgAV meanP.94 mmHgAV Vmax: | | 1.14 m/Mukul Vmean: 0.80 m/Mukul VTI: 27.23 cmAVA Vmax: 3.45 cm2AVA (VTI): 3.20 | | la1XWWD Vmax: 0.00 cm2/m2AVAI (VTI): 0.00 cm2/m2LVOT maxP.67 [...] A Asaf: | | 0.40 m/sTV Dec [place]: 1.66 m/s2TV Dec Time: 333.82 msTV E Asaf: 0.55 m/sTV E/A | | Ratio: 1.38 Ditcher: KVWAuthenticated by: Ana Stokes MDReport Date/Time: | [...] A Asaf: 0.40 m/s | |TV Dec [place]: 1.66 m/s2 | |TV Dec Time: 333.82 ms | |TV E Asaf: 0.55 m/s | |TV E/A Ratio: 1.38 | | | |Ditcher: KVW | |Authenticated by: Ana Stokes MD [...] | + + + + + | [facility] | [address] | [place] [address] | | + + + + + [...] Jan 09 2018 6:42AM Referring Provider Line: [phone] ID: | | | [id number] | | + + + + + + | Narrative | Performed At | + + + | EXAM: CAROTID DOPPLER ULTRASOUND EXAM DATE: 01/09/2018 06:04 AM. | [facility] | | CLINICAL HISTORY: Acute left-sided weakness. Stroke. | RADIOLOGY | | COMPARISON: None. TECHNIQUE: Real-time sonographic vascular | | | imaging was performed by the facing baster through the carotid arterial | | | system with a linear transducer utilizing color-flow, Doppler flow and | | | spectral analysis. Multiple airport representative static images were saved | | [...] sonographic vascular imaging was performed by the facing baster | | through the carotid arterial system with a linear transducer utilizing color-flow, | | Doppler flow and spectral analysis. Multiple airport representative static images were saved for | [...] Jan 09 2018 6:42AM Referring Provider Line: [phone] ID: [id number] | |Vertebral Mid: PSV 45 [...] 09 2018 6:42AM Referring Provider Line: [phone] ID: [id number] | + + + + + + + | Performing | Address | City/State/Zipcode | Phone Number | | Organization | | | | + + + + + | [facility] | [address] | [place] [address] | | + + + + + Magnesium (01/09/2018 4:57 AM) + + + + + | Component | Value | Ref Range | Performed At | + + + + + | MAGNESIUM | 1.8Comment: Testing | 1.7 - 2.4 mg/dL | [facility] | | | performed at [facility], [address] | | LABORATORY | | | [address], | | | | | [place] [address] | | | + + + + + + + | Specimen | + + | Blood | + + + + + + + | Performing | Address | City/State/Zipcode | Phone Number | | Organization | | | | + + + + + | [facility] | [address] | [place] [address] | [phone] | | LABORATORY | Blvd. | | [...] | [facility] | | | performed at [facility], [address] | | LABORATORY | | | [address], | | | | | [place] [address] | | | + + + + + + + | Specimen | + + | Blood | + + + + + + + | Performing | Address | City/State/Zipcode | Phone Number | | Organization | | | | + + + + + | [facility] | [address] | [place] [address] | [phone] | | LABORATORY | Blvd. | | | + + + + + Glycohemoglobin A1c (01/09/2018 4:57 AM) + + + + + | Component | Value | Ref Range | Performed At | + + + + + | HEMOGLOBIN A1C | 6.1 (H)Comment: The | 4.0 - 6.0 % | [facility] | | | [place] | | LABORATORY | | | [...] | 128Comment: The ADA | mg/dL | [facility] | | GLUCOSE | considers [...] | | | | | performed at [facility], [address] | | | | | [facility], | | | | | [place] [address] | | | + + + + + + + | Specimen | + + | Blood | + + + + + + + | Performing | Address | City/State/Zipcode | Phone Number | | Organization | | | | + + + + + | [facility] | [address] [facility] [address] | [place] [address] | [phone] | | LABORATORY | Blvd. | | [...] performed at | | | | | [facility], [address] [facility] | | | | | [place] | | | | | [place] [address] | | | + + + + + + + | Specimen | + + | Blood | + + + + + + + | Performing | Address | City/State/Zipcode | Phone Number | | Organization | | | | + + + + + | [facility] | [address] | [place] [address] | [phone] | | LABORATORY | [address] | | [...] | [facility] | | | performed at [facility], [address] | | LABORATORY | | | [address], | | | | | [place] [address] | | | + + + + + + + | Specimen | + + | Blood | + + + + + + + | Performing | Address | City/State/Zipcode | Phone Number | | Organization | | | | + + + + + | [facility] | [address] | [place] [address] | [phone] | | LABORATORY | Blvd. | | [...] contrast. A 3D noncontrast | | | [id number] MRA sequence was acquired through the | [...] without contrast. | | A 3D noncontrast [id number] MRA sequence was acquired through the head. [...] [facility] | [address] | [place] [address] | | + + + + + [...] | + + + + + | [facility] | [address] | [place] [address] | | + + + + + [...] | + + + + + | [facility] | [address] | [place] [address] | | + + + + + Troponin I (01/08/2018 12:45 PM) + + + + + | Component | Value | Ref Range | Performed At | + + + + + | TROPONIN I | <0.04Comment: 0.00 to | 0.00 - 0.10 ng/mL | [facility] | | | 0.10 [...] at | | | | | [facility], [address], | | | | | [place] [address] | | | + + + + + + + | Specimen | + + | Blood | + + + + + + + | Performing | Address | City/State/Zipcode | Phone Number | | Organization | | | | + + + + + | [facility] | [address] | [place] [address] | | + + + + + Cardiac Panel (01/08/2018 12:45 PM) + + + + + | Component | Value | Ref Range | Performed At | + + + + + | WBC | 14.08 (H) | 3.80 - 11.00 K/uL | [facility] | + + + + + | RBC | 5.35 | 4.20 - 5.70 M/uL | [facility] | + + + + + | HGB | 17.0 | 13.2 - 17.0 g/dL | [facility] | + + + + + | HCT | 49.5 | 39.0 - 50.0 % | [facility] | + + + + + | MCV | 92.6 | 80.0 - 100.0 fl | [facility] | + + + + + | MCH | 31.8 | 27.0 - 34.0 pg | [facility] | + + + + + | MCHC | 34.3 | 32.0 - 35.5 g/dL | [facility] | + + + + + | RDW SD | 46.8 | 37 - 53 fl | [facility] | + + + + + | PLT | 210 | 150 - 400 K/uL | [facility] | + + + [...] | 8.5 - 10.5 mg/dL | [facility] | + + + + + | TOTAL PROTEIN | 7.5 | 6.3 - 8.2 g/dL | [facility] | + + + + + | Albumin | 3.8 | 3.6 - 5.0 g/dL | [facility] | + + + + + | GLOBULIN | 3.7 | 1.3 - 4.9 g/dL | [facility] | + + + + + | A/G | 1.0 | 1.0 - 2.4 | [facility] | + + + + + | TBIL | 0.3 | 0.1 - 1.5 mg/dL | [facility] | + + + + + | ALK PHOS | 96 | 35 - 115 U/L | [facility] | + + + + + | AST | 14 | 10 - 45 U/L | [facility] | + + + + + | ALT | 24 | 10 - 65 U/L | [facility] | + + + + + | EGFR | >60Comment: GFR <60: | >60 mL/min/1.73m2 | [facility] | | | CHRONIC [...] the | | | | | MDRD [facility] traceable | | | | | equation. PLEASE NOTE | | | | | NEW CALCULATION | | | | | EFFECTIVE 12/18/2017 | | | + + + + + | CPK | 52 (L) | 55 - 400 U/L | [facility] | + + + + + | INR | 0.9Comment: REFERENCE | | [facility] | | | RANGE:0.9 [...] | 23 - 32 seconds | [facility] | + + + + + | MMB | 0.9 | 0.5 - 3.6 ng/mL | [facility] | + + + + + | CK-MB Index | 1.7Comment: CK INDEX | | [facility] | | | INTERPRETATION: [...] | | | | performed at [facility], [address] | | | | [address] [place], | | | | | [place] [address] | | | + + + + + + + + + + | Performing | Address | City/State/Zipcode | Phone Number | | Organization | | | | + + + + + | [facility] | [address] | [place] [address] | | + + + + + [...] + + + + | Calculated P [place] | 34 | degrees | [facility] | + + + + + | Calculated R [place] | -31 | degrees | [facility] | + + + + + | Calculated T [place] | 32 | degrees | [facility] | + + + + + | Diagnosis | Normal sinus rhythmLeft | | [facility] | | | axis [...] | | | | | ONLY, -COMPUTER ([id number]), | | | | | supervising film or videotape editor Nguyễn Garcia | | | | | Kleber ([id number]) on 01/09/2018 | | | | | 1:16:57 AM | | | + + + + + + + + + + | Performing | Address | City/State/Zipcode | Phone Number | | Organization | | | | + + + + + | [facility] | [address] | [place] [address] | | + + + + + [...] Coronary atherosclerosis of unspecified type of vessel, [place] or graft | + + | Leukocytosis [...]
[~2018-03-10 06:14] MED LIST changes: +LEVAQUIN500 MG PO
[2018-03-10] MEDS ORDERED: TRAZODONE HCL50 MG PO (11:24)
--- NOTE | 2018-03-10 11:37 | EKG ---
[facility] [address] [facility] [place] [address] Signed Normal sinus rhythm Normal ECG When compared with ECG of 02-FEB-2018 09:54, No significant change was found Confirmed by PAUL SÁNCHEZ MD ([id number]) on 03/10/2018 11:37:01 AM Electronically Signed By: PAUL SÁNCHEZ MD 03/10/18 1137 PATIENT NAME: ERIS PEOPLES Electrocardiogram DATE OF : 58 PHYSICIAN: PAUL SÁNCHEZ MD REPORT #: [id number] REPORT IS CONFIDENTIAL AND NOT TO BE RELEASED WITHOUT AUTHORIZATION
== END 2018-03-10 11:52 | disposition home or self-care (01) ==
LOC: ED 06:14
DX: R47.1 Dysarthria and anarthria (principal); I25.10 Atherosclerotic heart disease of native coronary artery without angina pectoris; R51 Headache; I10 Essential (primary) hypertension; F17.200 Nicotine dependence, unspecified, uncomplicated; Z88.0 Allergy status to penicillin; Z88.5 Allergy status to narcotic agent; Z79.899 Other long term (current) drug therapy
CPT/HCPCS: 70450; 71045; 80053; 84484; 85025; 93005; 93010; 99285

== ENCOUNTER 2018-03-12 20:17 | Emergency (ER) | payer OTHER ==
[~2018-03-12] VITALS: Ht 175.3 cm; Wt 104.3 kg
--- OUTSIDE RECORDS SUMMARY | ~2018-03-12 | XMS | Clinical Summary ---
Demographics + + + | Address | [address] | | | [place] [address] | + + + | Home Phone | | + + + | Preferred Language | Unknown | + + + | Marital Status | Single | + + + | Oriental Orthodox Affiliation | 1013 | + + + | Race | Unknown | + + + | Ethnic Group | Unknown | + + + Author + + + | Author | Julee Miraculins | + + + | Organization | [facility] | + + + | Address | Unknown | + + + | Phone | Unavailable | + + + Support + + +---------+ + | Name | Relationship | Address | Phone | + + +---------+ + | Karol Peoples | ECON | Unknown | | + + +---------+ + Care Team Providers + +------+ + | Care Control Room Helper Name | Role | Phone | + [...] + + | Acute cerebrovascular accident (CVA) ([facility]) | 01/09/20 | | | | 17 [...] | | | MRN: | | | [id number] | | | te of | | [...] | | recently | | | and [place] was | | | ruled out | [...] | | | Line: | | | [id number] | | | 5SITE ID: | | [...] | | | [place], | | | [id number] | | | [place] | | | [address] | | | n [place] | | | [phone] | | [phone] | | | [...] | | | | | | [place] [address] | | | | | | [phone] | | | | | | | [...] | [facility] | | | performed at [facility], [address] | | LABORATORY | | | [address], | | | | | [place] [address] | | | + + + + + + + + + + | Performing | Address | City/State/Zipcode | Phone Number | | Organization | | | | + + + + + | [facility] | [address] | [place] [address] | [phone] | | LABORATORY | [address] | | [...] + + + + + | Specific [place], UA | 1.006 | 1.002 - 1.030 [...] | [facility] | | | performed at [facility], [address] | | LABORATORY | | | [address], | | | | | [place] [address] | | | + + + + + + + | Specimen | + + | Urine - Urine, Clean | | Catch | + + + + + + + | Performing | Address | City/State/Zipcode | Phone Number | | Organization | | | | + + + + + | [facility] | [address] | [place] [address] | [phone] | | LABORATORY | [place] | | | + + + + + Echo Cardiac Adult with Bubble Study (01/09/2018 11:20 AM) + +-------+ + + | Component | Value | Ref Range | Performed At | + +-------+ + + | LV EF | 70 | 50 - 70 % | [facility] | | | | | [facility] | [...] ERIS PEOPLES Date of : 1960 | [facility] | | Performing Physician: Ana Stokes MD [...] TV A Asaf: 0.40 m/s TV Dec Porter: 1.66 | | | m/s2 TV Dec Time: 333.82 ms TV E Asaf: 0.55 m/s TV E/A | | | Ratio: 1.38 Operations Analyst: EVANGELINA Authenticated by: Ana | | | Divya BA Report Date/Time: 01-09-2018 19:9:14 | | + + + + ---------+ | Procedure Note | + ---------+ | Layton, Rad Results In - 01/09/2018 7:09 PM PDT Patient Name: Luiz PEOPLES of | | : 1960Accession: [id number] Physician: Ana Stokes MD | | INDICATIONS [...] (A-L): | | 14.79 ml/m2LAAs A2C: 13.39 [id number] A-L A2C: 31.09 mlLALs A2C: 4.89 cmLAAs A4C: | | 11.87 [id number] A-L A4C: 28.45 mlLALs A4C: 4.20 cmAo Diam: 3.27 cmAV Cusp: 2.20 | | cmLA Diam: 3.69 cmLA/Ao: 1.12 TAPSE: 2.53 cmIVC diameter: 2.00 cmIVC collapse: | | 0.89 cmIVC % collapse: 53.55 %AV maxP.23 mmHgAV meanP.94 mmHgAV Vmax: | | 1.14 m/Mukul Vmean: 0.80 m/Mukul VTI: 27.23 cmAVA Vmax: 3.45 cm2AVA (VTI): 3.20 | | [id number] Vmax: 0.00 cm2/m2AVAI (VTI): 0.00 cm2/m2LVOT maxP.67 [...] A Asaf: | | 0.40 m/sTV Dec Porter: 1.66 m/s2TV Dec Time: 333.82 msTV E Asaf: 0.55 m/sTV E/A | | Ratio: 1.38 Operations Analyst: IRENEWAuthenticated by: Ana Stokes MDReport Date/Time: | [...] A Asaf: 0.40 m/s | |TV Dec Porter: 1.66 m/s2 | |TV Dec Time: 333.82 ms | |TV E Asaf: 0.55 m/s | |TV E/A Ratio: 1.38 | | | |Operations Analyst: KVW | |Authenticated by: Ana Stokes MD [...] | + + + + + | [facility] | [address] | [place] [address] | | + + + + + [...] Jan 09 2018 6:42AM Referring Provider Line: [id number] ID: | | | [id number] | | + + + + + + | Narrative | Performed At | + + + | EXAM: CAROTID DOPPLER ULTRASOUND EXAM DATE: 01/09/2018 06:04 AM. | [facility] | | CLINICAL HISTORY: Acute left-sided weakness. Stroke. | RADIOLOGY | | COMPARISON: None. TECHNIQUE: Real-time sonographic vascular | | | imaging was performed by the production operations inspector through the carotid arterial | | | system with a linear transducer utilizing color-flow, Doppler flow and | | | spectral analysis. Multiple business representative static images were saved | | [...] sonographic vascular imaging was performed by the production operations inspector | | through the carotid arterial system with a linear transducer utilizing color-flow, | | Doppler flow and spectral analysis. Multiple business representative static images were saved for | [...] Jan 09 2018 6:42AM Referring Provider Line: [phone] ID: [id number] | |Vertebral Mid: PSV 45 [...] 09 2018 6:42AM Referring Provider Line: [phone] ID: [id number] | + + + + + + + | Performing | Address | City/State/Zipcode | Phone Number | | Organization | | | | + + + + + | [facility] | [address] | [facility] [address] | | + + + + + [...] | [facility] | | | performed at [facility], [address] | | LABORATORY | | | [address], | | | | | [place] [address] | | | + + + + + + + | Specimen | + + | Blood | + + + + + + + | Performing | Address | City/State/Zipcode | Phone Number | | Organization | | | | + + + + + | [facility] | [address] [place] [address] | [place] [address] | [phone] | | LABORATORY | [address]vd[address] | | | + + + + + Magnesium (01/09/2018 4:57 AM) + + + + + | Component | Value | Ref Range | Performed At | + + + + + | MAGNESIUM | 1.8Comment: Testing | 1.7 - 2.4 mg/dL | [facility] | | | performed at [facility], [address] | | LABORATORY | | | [facility], | | | | | [place] [address] | | | + + + + + + + | Specimen | + + | Blood | + + + + + + + | Performing | Address | City/State/Zipcode | Phone Number | | Organization | | | | + + + + + | [facility] | [address] [facility] | [place] [address] | [phone] | | LABORATORY | [address] | | | + + + + + Glycohemoglobin A1c (01/09/2018 4:57 AM) + + + + + | Component | Value | Ref Range | Performed At | + + + + + | HEMOGLOBIN A1C | 6.1 (H)Comment: The | 4.0 - 6.0 % | [facility] | | | [place] Diabetes | | LABORATORY | | | [...] | 128Comment: The ADA | mg/dL | [facility] | | GLUCOSE | considers [...] | | | | | performed at [facility], [address] | | | | | [facility], | | | | | [place] [address] | | | + + + + + + + | Specimen | + + | Blood | + + + + + + + | Performing | Address | City/State/Zipcode | Phone Number | | Organization | | | | + + + + + | [facility] | [address] [facility] | [place] [address] | [phone] | | LABORATORY | [address] | | [...] | [facility] | | | performed at [facility], [address] | | LABORATORY | | | [address], | | | | | [place] [address] | | | + + + + + + + | Specimen | + + | Blood | + + + + + + + | Performing | Address | City/State/Zipcode | Phone Number | | Organization | | | | + + + + + | [facility] | [address] [facility] | [place] [address] | [phone] | | LABORATORY | [address]vd[address] | | [...] performed at | | | | | [facility], [address] [place] [address] | | | | | [place], | | | | | [place] [address] | | | + + + + + + + | Specimen | + + | Blood | + + + + + + + | Performing | Address | City/State/Zipcode | Phone Number | | Organization | | | | + + + + + | [facility] | [address] [facility] | [place] [address] | [phone] | | LABORATORY | [place] | | [...] AND MRA HEAD 01/08/2018 9:16 PM | [facility] | | HISTORY: 57 years. Male. Acute left-sided weakness. Acute | RADIOLOGY | | embolic stroke. TECHNIQUE: Imaging was performed on a 1.5 Mayra | | | MRI system. Multiplanar sequences were acquired according to a | | | standard department protocol without contrast. A 3D noncontrast | | | uclw-gq-htnalf MRA sequence was acquired through the | [...] In - 01/08/2018 9:57 PM PDT [facility] | | HEAD01/08/2018 9:16 PMHISTORY:57 years. Male. Acute left-sided weakness. Acute embolic | | stroke.TECHNIQUE:Imaging was performed on a 1.5 Mayra MRI system. Multiplanar | | sequences were acquired according to a standard department protocol without contrast. | | A 3D noncontrast fenb-hh-pclbiy MRA sequence was acquired through the head. [...] | + + + + + | [facility] | [address] | [place] [address] | | + + + + + [...] | + + + + + | [facility] | [address] | [place] [address] | | + + + + + [...] [facility] | [address] | [place] [address] | | + + + + + Cardiac Panel (01/08/2018 12:45 PM) + + + + + | Component | Value | Ref Range | Performed At | + + + + + | WBC | 14.08 (H) | 3.80 - 11.00 K/uL | [facility] | + + + + + | RBC | 5.35 | 4.20 - 5.70 M/uL | [facility] | + + + + + | HGB | 17.0 | 13.2 - 17.0 g/dL | [facility] | + + + + + | HCT | 49.5 | 39.0 - 50.0 % | [facility] | + + + + + | MCV | 92.6 | 80.0 - 100.0 fl | [facility] | + + + + + | MCH | 31.8 | 27.0 - 34.0 pg | [facility] | + + + + + | MCHC | 34.3 | 32.0 - 35.5 g/dL | [facility] | + + + + + | RDW SD | 46.8 | 37 - 53 fl | [facility] | + + + + + | PLT | 210 | 150 - 400 K/uL | [facility] | + + + + [...] 8.9 | 8.5 - 10.5 mg/dL | [facility] | + + + + + | TOTAL PROTEIN | 7.5 | 6.3 - 8.2 g/dL | [facility] | + + + + + | Albumin | 3.8 | 3.6 - 5.0 g/dL | [facility] | + + + + + | GLOBULIN | 3.7 | 1.3 - 4.9 g/dL | [facility] | + + + + + | A/G | 1.0 | 1.0 - 2.4 | [facility] | + + + + + | TBIL | 0.3 | 0.1 - 1.5 mg/dL | [facility] | + + + + + | ALK PHOS | 96 | 35 - 115 U/L | [facility] | + + + + + | AST | 14 | 10 - 45 U/L | [facility] | + + + + + | ALT | 24 | 10 - 65 U/L | [facility] | + + + + + | EGFR | >60Comment: GFR <60: | >60 mL/min/1.73m2 | [facility] | | | CHRONIC KIDNEY [...] the | | | | | MDRD [facility] traceable | | | | | equation. PLEASE NOTE | | | | | NEW CALCULATION | | | | | EFFECTIVE 12/18/2017 | | | + + + + + | CPK | 52 (L) | 55 - 400 U/L | [facility] | + + + + + | INR | 0.9Comment: REFERENCE | | [facility] | | | RANGE:0.9 - [...] 27 | 23 - 32 seconds | [facility] | + + + + + | MMB | 0.9 | 0.5 - 3.6 ng/mL | [facility] | + + + + + | CK-MB Index | 1.7Comment: CK INDEX | | [facility] | | | INTERPRETATION: | [...] | | | | | performed at [facility], [address] | | | | [address] [place], | | | | | [place] [address] | | | + + + + + + + + + + | Performing | Address | City/State/Zipcode | Phone Number | | Organization | | | | + + + + + | [facility] | [address] | [place] [address] | | + + + + + Troponin I (01/08/2018 12:45 PM) + + + + + | Component | Value | Ref Range | Performed At | + + + + + | TROPONIN I | <0.04Comment: 0.00 to | 0.00 - 0.10 ng/mL | [facility] | | | 0.10 CONSISTENT WITH | | | | | NORMAL POPULATION0.11 | | | | | to 0.60 CONSISTENT | | | | | WITH INCREASED RISK FOR | | | | | ADVERSE OUTCOMES> | | | | | 0.60 | | | | | CONSISTENT WITH WHO | | | | | CRITERIA FOR ACUTE [place] | | | | | Testing performed at | | | | | [facility], [address], | | | | | [place] [address] | | | + + + + + + + | Specimen | + + | Blood | + + + + + + + | Performing | Address | City/State/Zipcode | Phone Number | | Organization | | | | + + + + + | [facility] | [address] | [facility] [address] | | + + + + + [...] + + + + | Calculated P Kelso | 34 | degrees | [facility] | + + + + + | Calculated R Kelso | -31 | degrees | [facility] | + + + + + | Calculated T Kelso | 32 | degrees | [facility] | + + + + + | Diagnosis | Normal sinus rhythmLeft | | [facility] | | | axis deviationInferior [...] -COMPUTER (500), | | | | | supervising editor news reel Nguyễn Garcia | | | | | Kleber (123) on 01/09/2018 | | | | | 1:16:57 AM | | | + + + + + + + + + + | Performing | Address | City/State/Zipcode | Phone Number | | Organization | | | | + + + + + | [facility] | [address] | [place] [address] | | + + + + + [...] | [employer] | ODS | [id number] | | | | | | HEALTH [...] [address] | | | al/Gregoroi | | 1961 | [phone] | [place] | | | [place] | | | [phone] | [phone] | + +--------+ +--------+ + +
--- OUTSIDE RECORDS SUMMARY | ~2018-03-12 | XMS | Clinical Summary ---
Demographics + + + | Address | [address] | | | [place] [address] | + + + | Home Phone [...] | + + + | Organization | [facility] | | | and [facility] | + + + | Address | Unknown | + + + | Phone | Unavailable | + + + Support + + + + + | Name | Relationship | Address | Phone | + + + + + | Karol Peoples | ECON | [address] [place] | | | | | [address] | | + + + + + Care Team Providers + +------+ + | Care Senior Publications Specialist Name | Role | Phone | [...] Date | + + + | Acute [place] (HCC) | 07/02/2017 | + + + [...] + + + + Plan of Treatment +--------+---------+ + + + | Date | Type | Specialty | Care Team | Description | +--------+---------+ + + + | 04/04/ | Office | | Juan Manuel Khanna, | | | 2018 | Visit | | [address] [facility] | | | | | | [place] | | | | | | [address] | | | | | | | | +--------+---------+ + + + + + + + [...] | [employer] | MODA | [id number] | Medica | [phone] | | | MEDICAID HMO | HEALTH [...] | [birth year] | Home: | [address] | | | al/Fam | | 1961 | [phone] | [place] [address] | | | jeremy | | | [phone] | | + +--------+ +--------+ + +
--- OUTSIDE RECORDS SUMMARY | ~2018-03-12 | XMS | Clinical Summary ---
Demographics + + + | Address | [address] | | | [place] [address] | + + + | Home Phone | | + + + | Preferred Language | Unknown | + + + | Marital Status | Single | + + + | Presybeterian Affiliation | CHR | + + + [...] Team Providers + +------+ + | Care Electronic Test Technician Name | Role | Phone | + +------+ + PP | Unavailable | + +------+ + Source Comments ISIDRO is fully live on both [facility] Ambulatory and [facility] InPatient.Formerly [facility] Allergies Not on File Current Medications Not [...] | | | + +--------+ +--------+-------+---------+ | [facility] | | [phone] | Agency | | [...] | 1961 | [phone] | [place] [address] | | | [place] | | | [phone] | | + +--------+ +--------+ + +"
--- OUTSIDE RECORDS SUMMARY | ~2018-03-12 | XMS | Encounter Summary ---
Demographics + + + | Address | [address] | | | [place] [address] | + + + | Home Phone | | + + + | Preferred Language | Unknown | + + + | Marital Status | Single | + + + | Yazidism Affiliation | 1013 | + + + | Race | Unknown | + + + | Ethnic Group | Unknown | + + + Author + + + | Author | Julee AppVault | + + + | Organization | [facility] | + + + | Address | Unknown | + + + | Phone | Unavailable | + + + Support + + +---------+ + | Name | Relationship | Address | Phone | + + +---------+ + | Karol Peoples | ECON | Unknown | | + + +---------+ + Care Team Providers + +------+ + | Care Aluminum Molder Name | Role | Phone | + +------+ + | Herberth Jude Magali BRICE | PCP | | + +------+ + Reason for Visit + + + | Reason | Comments | + + + | Chest Pain | radiates to left arm heaviness intermittent since sunday and | | | worked up on sunday in [facility]. everything negative and sent | | | [...] | | Internal | Diagnoses | | [facility] | | | | Medicine | Acute | | [facility] | | | | | left-sided | | [address] | | | | | weakness | | [address] | | | | | Acute | | [place], [place] | | | | | embolic | | [phone] Phone: | | | | | stroke ([facility]) | | [phone] | | | | | | | | +--------+--------+ + + + + Encounter Details +--------+ + + + + | Date | Type | Department | Care Team | Description | +--------+ + + + + | 01/08/ | Hospital | [facility] | Estefania Garcia, | Acute left-sided | | 2018 - | Encounter | [address] | MD José [address] | weakness (Primary | | | | [facility] | EMERGENCY DEPARTMENT | Dx); Acute embolic | | 01/09/ | | [address] | [place] [address] | stroke (HCC) | | 2018 | | [place] [address] | [phone] | | | | | [phone] | | | | | | | Tommy Saez DO [address] | | | | | | [address] | | | | | | [place], [place] | | | | | | [address] | | | | | | [phone] | | | | | | | | | | | | Jamie Castro MD | | | | | | [address] | | | | | | [place] [address] | | | | | | [phone] | | | | | | | [...] since sunday and worked up on in [facility]. everything negative and sent home); Headache; and Extremity Weakness (left arm since sunday, increasing weakness) Hospital Course: Eris Peoples is a 57 y.o. male with htn, CAD with stents, hld who was admitted on 2017 with complaints of slurred speech and left sided weakness. Apparently the symptoms had began about 3 days ago. He also was seen in [place] for chest pain recently and NC was rul ed out and patient sent [...] Jan 09 2018 6:42AM Referring Provider Line: [phone] ID: [id number] Mri Brain Without Contrast And [...] Information: Follow up: Jude Kevin, YUNIEL [address] [facility] [place] [id number] Schedule an appointment as soon as possible [...] the symptoms first appeared. Date Last Reviewed: 01/20/201719990105-14[address] [employer] [place] [address]. All righ ts reserved. This information is [...] quit within a month, and do it. [place] to your quit plan Talk to your [...] Track your triggers What gives you that H-suzr-m-cigarette feeling? List all the situations that make [...] wants to stop smoking. Date Last Reviewed: 01/21/201619991146-9535 [employer] [place] [address]. All righ ts reserved. This information is [...] was encouraged to go in to the [facility] and apply for breonna care. They verbalized understanding and terrie l follow up. Pt lives at home w/ and 16yo dtr who are a support to him. Pt reports he h ad a CPAP, but lost this and insurance did not cover for another one. Pt uses no other DME o [employer]wise. Pt aware he will be going to the [facility] and has no concerns at this time. Patient's PCP is: YUNIEL Rose - Seen last month. Patient's insurance: Self pay - Coverage concerns: will be applying for breonna care Medication coverage/concerns: yes Rx Bedside Delivery: Community resources utilized / needed: breonna care Assistance in transportation: , Karol [phone] can transport when ready. Identification of any [...] [place], | | | | | | [place] [address] | | | | | | [phone] | | | | | | | [...] | + +--------+ + + + | [facility] W/O | STAT | 01/08/2018 [...] MOR Siddiqui | 1+Comment: Testing | | [facility] | | | performed at [facility], [address] | | LABORATORY | | | [facility], | | | | | [place] [address] | | | + + + + + + + + + + | Performing | Address | City/State/Zipcode | Phone Number | | Organization | | | | + + + + + | [facility] | [address] [place] [address] | [place] [address] | [phone] | | LABORATORY | Blvd[address] | | [...] + + + + + | Specific Mabel, UA | 1.006 | 1.002 - 1.030 [...] | [facility] | | | performed at [facility], [address] | | LABORATORY | | | [address], | | | | | [place] [address] | | | + + + + + + + | Specimen | + + | Urine - Urine, Clean | | Catch | + + + + + + + | Performing | Address | City/State/Zipcode | Phone Number | | Organization | | | | + + + + + | [facility] | [address] [facility] | [place] [address] | [phone] | | LABORATORY | Blvd[address] | | [...] PEOPLES Date of : 1960 | [facility] | | Performing Physician: Ana Stokes [...] TV A Asaf: 0.40 m/s TV Dec Washita: 1.66 | | | m/s2 TV Dec Time: 333.82 ms TV E Asaf: 0.55 m/s TV E/A | | | Ratio: 1.38 Rewriter: EVANGELINA Authenticated by: Ana | | | Divya BA Report Date/Time: 01-09-2018 19:9:14 | | + + + + ---------+ | Procedure Note | + ---------+ | Boyd Traylor Results In - 01/09/2018 7:09 PM PDT Patient Name: Luiz PEOPLES of | | : 1960Accession: [id number] Physician: Ana Stokes MD | | INDICATIONS [...] (A-L): | | 14.79 ml/m2LAAs A2C: 13.39 [id number] A-L A2C: 31.09 mlLALs A2C: 4.89 cmLAAs A4C: | | 11.87 [id number] A-L A4C: 28.45 mlLALs A4C: 4.20 cmAo Diam: 3.27 cmAV Cusp: 2.20 | | cmLA Diam: 3.69 cmLA/Ao: 1.12 TAPSE: 2.53 cmIVC diameter: 2.00 cmIVC collapse: | | 0.89 cmIVC % collapse: 53.55 %AV maxP.23 mmHgAV meanP.94 mmHgAV Vmax: | | 1.14 m/Mukul Vmean: 0.80 m/Mukul VTI: 27.23 cmAVA Vmax: 3.45 cm2AVA (VTI): 3.20 | | [id number] Vmax: 0.00 cm2/m2AVAI (VTI): 0.00 cm2/m2LVOT maxP.67 [...] A Asaf: | | 0.40 m/sTV Dec [place]: 1.66 m/s2TV Dec Time: 333.82 msTV E Asaf: 0.55 m/sTV E/A | | Ratio: 1.38 Rewriter: KVWAuthenticated by: Ana Stokes MDReport Date/Time: | [...] A Asaf: 0.40 m/s | |TV Dec [place]: 1.66 m/s2 | |TV Dec Time: 333.82 ms | |TV E Asaf: 0.55 m/s | |TV E/A Ratio: 1.38 | | | |Rewriter: KVW | |Authenticated by: Ana Stokes MD [...] + + | [facility] | [address] | [place] [address] | | + + + + + [...] Jan 09 2018 6:42AM Referring Provider Line: [phone] ID: | | | [id number] | | + + + + + + | Narrative | Performed At | + + + | EXAM: CAROTID DOPPLER ULTRASOUND EXAM DATE: 01/09/2018 06:04 AM. | [facility] | | CLINICAL HISTORY: Acute left-sided weakness. Stroke. | RADIOLOGY | | COMPARISON: None. TECHNIQUE: Real-time sonographic vascular | | | imaging was performed by the senior technical support analyst through the carotid arterial | | | system with a linear transducer utilizing color-flow, Doppler flow and | | | spectral analysis. Multiple metals sales representative static images were saved | | [...] sonographic vascular imaging was performed by the senior technical support analyst | | through the carotid arterial system with a linear transducer utilizing color-flow, | | Doppler flow and spectral analysis. Multiple metals sales representative static images were saved for | [...] Jan 09 2018 6:42AM Referring Provider Line: [phone] ID: [id number] | |Vertebral Mid: PSV 45 [...] 09 2018 6:42AM Referring Provider Line: [phone] ID: [id number] | + + + + + + + | Performing | Address | City/State/Zipcode | Phone Number | | Organization | | | | + + + + + | [facility] | [address] | [place] [address] | | + + + + + Magnesium (01/09/2018 4:57 AM) + + + + + | Component | Value | Ref Range | Performed At | + + + + + | MAGNESIUM | 1.8Comment: Testing | 1.7 - 2.4 mg/dL | [facility] | | | performed at [facility], [address] | | LABORATORY | | | [address], | | | | | [place] [address] | | | + + + + + + + | Specimen | + + | Blood | + + + + + + + | Performing | Address | City/State/Zipcode | Phone Number | | Organization | | | | + + + + + | [facility] | [address] [facility] | [place] [address] | [phone] | | LABORATORY | Blvd. | | [...] | [facility] | | | performed at [facility], [address] | | LABORATORY | | | [address], | | | | | [place] [address] | | | + + + + + + + | Specimen | + + | Blood | + + + + + + + | Performing | Address | City/State/Zipcode | Phone Number | | Organization | | | | + + + + + | [facility] | [address] [facility] | [place] [address] | [phone] | | LABORATORY | Blvd. | | | + + + + + Glycohemoglobin A1c (01/09/2018 4:57 AM) + + + + + | Component | Value | Ref Range | Performed At | + + + + + | HEMOGLOBIN A1C | 6.1 (H)Comment: The | 4.0 - 6.0 % | [facility] | | | [place] [facility] | | LABORATORY | | | [...] | 128Comment: The ADA | mg/dL | [facility] | | GLUCOSE | considers an [...] | | | | | performed at [facility], [address] | | | | | [facility], | | | | | [place] [address] | | | + + + + + + + | Specimen | + + | Blood | + + + + + + + | Performing | Address | City/State/Zipcode | Phone Number | | Organization | | | | + + + + + | [facility] | [address] [facility] | [place] [address] | [phone] | | LABORATORY | Blvd. | | [...] performed at | | | | | [facility], [address] [facility] | | | | | [place] | | | | | [place] [address] | | | + + + + + + + | Specimen | + + | Blood | + + + + + + + | Performing | Address | City/State/Zipcode | Phone Number | | Organization | | | | + + + + + | [facility] | [address] [facility] | [place] [address] | [phone] | | LABORATORY | [place] | | [...] | [facility] | | | performed at [facility], [address] | | LABORATORY | | | [address], | | | | | [place] [address] | | | + + + + + + + | Specimen | + + | Blood | + + + + + + + | Performing | Address | City/State/Zipcode | Phone Number | | Organization | | | | + + + + + | [facility] | [address] [facility] | [place] [address] | [phone] | | LABORATORY | Blvd. | | [...] contrast. A 3D noncontrast | | | jfab-vk-[id number] MRA sequence was acquired through the | [...] without contrast. | | A 3D noncontrast kois-ip-ltdfht MRA sequence was acquired through the head. [...] [facility] | [address] | [place] [address] | | + + + + + [...] + + | [facility] | [address] | [place] [address] | | + + + + + [...] | + + + + + | [facility] | [address] | [place] [address] | | + + + + + Troponin I (01/08/2018 12:45 PM) + + + + + | Component | Value | Ref Range | Performed At | + + + + + | TROPONIN I | <0.04Comment: 0.00 to | 0.00 - 0.10 ng/mL | [facility] | | | 0.10 CONSISTENT WITH | | | | | NORMAL POPULATION0.11 | | | | | to 0.60 CONSISTENT | | | | | WITH INCREASED RISK FOR | | | | | ADVERSE OUTCOMES> | | | | | 0.60 | | | | | CONSISTENT WITH WHO | | | | | CRITERIA FOR ACUTE NC | | | | | Testing performed at | | | | | [facility], [address], | | | | | [place] [address] | | | + + + + + + + | Specimen | + + | Blood | + + + + + + + | Performing | Address | City/State/Zipcode | Phone Number | | Organization | | | | + + + + + | [facility] | [address] | [facility] [address] | | + + + + + Cardiac Panel (01/08/2018 12:45 PM) + + + + + | Component | Value | Ref Range | Performed At | + + + + + | WBC | 14.08 (H) | 3.80 - 11.00 K/uL | [facility] | + + + + + | RBC | 5.35 | 4.20 - 5.70 M/uL | [facility] | + + + + + | HGB | 17.0 | 13.2 - 17.0 g/dL | [facility] | + + + + + | HCT | 49.5 | 39.0 - 50.0 % | [facility] | + + + + + | MCV | 92.6 | 80.0 - 100.0 fl | [facility] | + + + + + | MCH | 31.8 | 27.0 - 34.0 pg | [facility] | + + + + + | MCHC | 34.3 | 32.0 - 35.5 g/dL | [facility] | + + + + + | RDW SD | 46.8 | 37 - 53 fl | [facility] | + + + + + | PLT | 210 | 150 - 400 K/uL | [facility] | + + + + [...] 8.9 | 8.5 - 10.5 mg/dL | [facility] | + + + + + | TOTAL PROTEIN | 7.5 | 6.3 - 8.2 g/dL | [facility] | + + + + + | Albumin | 3.8 | 3.6 - 5.0 g/dL | [facility] | + + + + + | GLOBULIN | 3.7 | 1.3 - 4.9 g/dL | [facility] | + + + + + | A/G | 1.0 | 1.0 - 2.4 | [facility] | + + + + + | TBIL | 0.3 | 0.1 - 1.5 mg/dL | [facility] | + + + + + | ALK PHOS | 96 | 35 - 115 U/L | [facility] | + + + + + | AST | 14 | 10 - 45 U/L | [facility] | + + + + + | ALT | 24 | 10 - 65 U/L | [facility] | + + + + + | EGFR | >60Comment: GFR <60: | >60 mL/min/1.73m2 | [facility] | | | CHRONIC KIDNEY [...] the | | | | | MDRD [facility] traceable | | | | | equation. PLEASE NOTE | | | | | NEW CALCULATION | | | | | EFFECTIVE 12/18/2017 | | | + + + + + | CPK | 52 (L) | 55 - 400 U/L | [facility] | + + + + + | INR | 0.9Comment: REFERENCE | | [facility] | | | RANGE:0.9 - [...] 27 | 23 - 32 seconds | [facility] | + + + + + | MMB | 0.9 | 0.5 - 3.6 ng/mL | [facility] | + + + + + | CK-MB Index | 1.7Comment: CK INDEX | | [facility] | | | INTERPRETATION: | [...] | | | | | performed at [facility], [address] | | | | [address] [place], | | | | | [place] [address] | | | + + + + + + + + + + | Performing | Address | City/State/Zipcode | Phone Number | | Organization | | | | + + + + + | [facility] | [address] | [place] [address] | | + + + + + [...] + + + + | Calculated P [place] | 34 | degrees | [facility] | + + + + + | Calculated R [place] | -31 | degrees | [facility] | + + + + + | Calculated T [place] | 32 | degrees | [facility] | + + + + + | Diagnosis | Normal sinus rhythmLeft | | [facility] | | | axis deviationInferior [...] | | | | | ONLY, -COMPUTER ([id number]), | | | | | city editor Nguyễn Garcia | | | | | Kleber ([id number]) on 01/09/2018 | | | | | 1:16:57 AM | | | + + + + + + + + + + | Performing | Address | City/State/Zipcode | Phone Number | | Organization | | | | + + + + + | [facility] | [address] | [place] [address] | | + + + + + [...] Coronary atherosclerosis of unspecified type of vessel, [place] or graft | + + | Leukocytosis [...]
--- OUTSIDE RECORDS SUMMARY | ~2018-03-12 | XMS | Clinical Summary ---
Demographics + + + | Address | [address] | | | [place] [address] | + + + | Home Phone [...] + + + | Author | [email or web address] | + + + | Organization | [facility] | + + + | Address | Unknown | + + + | Phone | Unavailable | + + + Support + + +---------+ + | Name | Relationship | Address | Phone | + + +---------+ + | Karol Peoples | ECON | Unknown | | + + +---------+ + Care Team Providers + +------+ + | Care Asset Protection Professional Name | Role | Phone | + [...] + + | Acute cerebrovascular accident (CVA) ([facility]) | 01/09/20 | | | | 18 [...] | | | MRN: | | | [id number] | | | te of | | [...] | | recently | | | and [place] was | | | ruled out | [...] | | | Line: | | | [id number] | | | 5SITE ID: | | [...] | | | [place], | | | [id number] | | | [place] | | | [address] | | | n [place] | | | [phone] | | [phone] | | | [...] | | | | | | [place] [address] | | | | | | [phone] | | | | | | | [...] | [facility] | | | performed at [facility], [address] | | LABORATORY | | | [address], | | | | | [place] [address] | | | + + + + + + + + + + | Performing | Address | City/State/Zipcode | Phone Number | | Organization | | | | + + + + + | [facility] | [address] | [place] [address] | [phone] | | LABORATORY | [address] | | [...] + + + + + | Specific [place], UA | 1.006 | 1.002 - 1.030 [...] | [facility] | | | performed at [facility], [address] | | LABORATORY | | | [address], | | | | | [place] [address] | | | + + + + + + + | Specimen | + + | Urine - Urine, Clean | | Catch | + + + + + + + | Performing | Address | City/State/Zipcode | Phone Number | | Organization | | | | + + + + + | [facility] | [address] | [place] [address] | [phone] | | LABORATORY | [place] | | [...] TV A Asaf: 0.40 m/s TV Dec Kinney: 1.66 | | | m/s2 TV Dec Time: 333.82 ms TV E Asaf: 0.55 m/s TV E/A | | | Ratio: 1.38 Revit Drafter: EVANGELINA Authenticated by: Ana | | | Divya BA Report Date/Time: 01-09-2018 19:9:14 | | + + + + ---------+ | Procedure Note | + ---------+ | Layton, Rad Results In - 01/09/2018 7:09 PM PDT Patient Name: Luiz PEOPLES of | | : 1960Accession: [id number] Physician: Ana Stokes MD | | INDICATIONS [...] (A-L): | | 14.79 ml/m2LAAs A2C: 13.39 [id number] A-L A2C: 31.09 mlLALs A2C: 4.89 cmLAAs A4C: | | 11.87 [id number] A-L A4C: 28.45 mlLALs A4C: 4.20 cmAo Diam: 3.27 cmAV Cusp: 2.20 | | cmLA Diam: 3.69 cmLA/Ao: 1.12 TAPSE: 2.53 cmIVC diameter: 2.00 cmIVC collapse: | | 0.89 cmIVC % collapse: 53.55 %AV maxP.23 mmHgAV meanP.94 mmHgAV Vmax: | | 1.14 m/Mukul Vmean: 0.80 m/Mukul VTI: 27.23 cmAVA Vmax: 3.45 cm2AVA (VTI): 3.20 | | [id number] Vmax: 0.00 cm2/m2AVAI (VTI): 0.00 cm2/m2LVOT maxP.67 [...] A Asaf: | | 0.40 m/sTV Dec Kinney: 1.66 m/s2TV Dec Time: 333.82 msTV E Asaf: 0.55 m/sTV E/A | | Ratio: 1.38 Revit Drafter: IRENEWAuthenticated by: Ana Stokes MDReport Date/Time: | [...] A Asaf: 0.40 m/s | |TV Dec Kinney: 1.66 m/s2 | |TV Dec Time: 333.82 ms | |TV E Asaf: 0.55 m/s | |TV E/A Ratio: 1.38 | | | |Revit Drafter: KVW | |Authenticated by: Ana Stokes MD [...] [facility] | [address] | [place] [address] | | + + + + + [...] Jan 09 2018 6:42AM Referring Provider Line: [phone] ID: | | | [id number] | | + + + + + + | Narrative | Performed At | + + + | EXAM: CAROTID DOPPLER ULTRASOUND EXAM DATE: 01/09/2018 06:04 AM. | [facility] | | CLINICAL HISTORY: Acute left-sided weakness. Stroke. | RADIOLOGY | | COMPARISON: None. TECHNIQUE: Real-time sonographic vascular | | | imaging was performed by the finisher fiberglass boat parts through the carotid arterial | | | system with a linear transducer utilizing color-flow, Doppler flow and | | | spectral analysis. Multiple veterans contact representative static images were saved | | [...] sonographic vascular imaging was performed by the finisher [employer]lass boat parts | | through the carotid arterial system with a linear transducer utilizing color-flow, | | Doppler flow and spectral analysis. Multiple veterans contact representative static images were saved for | [...] Jan 09 2018 6:42AM Referring Provider Line: [phone] ID: [id number] | |Vertebral Mid: PSV 45 [...] 09 2018 6:42AM Referring Provider Line: [phone] ID: [id number] | + + + + + + + | Performing | Address | City/State/Zipcode | Phone Number | | Organization | | | | + + + + + | [facility] | [address] | [facility] [address] | | + + + + + [...] | [facility] | | | performed at [facility], [address] | | LABORATORY | | | [address], | | | | | [place] [address] | | | + + + + + + + | Specimen | + + | Blood | + + + + + + + | Performing | Address | City/State/Zipcode | Phone Number | | Organization | | | | + + + + + | [facility] | [address] [place] [address] | [place] [address] | [phone] | | LABORATORY | [address]vd[address] | | | + + + + + Magnesium (01/09/2018 4:57 AM) + + + + + | Component | Value | Ref Range | Performed At | + + + + + | MAGNESIUM | 1.8Comment: Testing | 1.7 - 2.4 mg/dL | [facility] | | | performed at [facility], [address] | | LABORATORY | | | [facility], | | | | | [place] [address] | | | + + + + + + + | Specimen | + + | Blood | + + + + + + + | Performing | Address | City/State/Zipcode | Phone Number | | Organization | | | | + + + + + | [facility] | [address] [facility] | [place] [address] | [phone] | | LABORATORY | [address]vd[address] | | | + + + + + Glycohemoglobin A1c (01/09/2018 4:57 AM) + + + + + | Component | Value | Ref Range | Performed At | + + + + + | HEMOGLOBIN A1C | 6.1 (H)Comment: The | 4.0 - 6.0 % | [facility] | | | Iranian Diabetes | | LABORATORY | | | [...] | 128Comment: The ADA | mg/dL | [facility] | | GLUCOSE | considers [...] | | | | | performed at [facility], [address] | | | | | [facility], | | | | | [place] [address] | | | + + + + + + + | Specimen | + + | Blood | + + + + + + + | Performing | Address | City/State/Zipcode | Phone Number | | Organization | | | | + + + + + | [facility] | [address] [facility] | [place] [address] | [phone] | | LABORATORY | [address] | | [...] | [facility] | | | performed at [facility], [address] | | LABORATORY | | | [address], | | | | | [place] [address] | | | + + + + + + + | Specimen | + + | Blood | + + + + + + + | Performing | Address | City/State/Zipcode | Phone Number | | Organization | | | | + + + + + | [facility] | [address] [facility] | [place] [address] | [phone] | | LABORATORY | [address] | | [...] performed at | | | | | [facility], [address] [place] [address] | | | | | [place], | | | | | [place] [address] | | | + + + + + + + | Specimen | + + | Blood | + + + + + + + | Performing | Address | City/State/Zipcode | Phone Number | | Organization | | | | + + + + + | [facility] | [address] [facility] | [place] [address] | [phone] | | LABORATORY | [place] | | [...] AND MRA HEAD 01/08/2018 9:16 PM | [facility] | | HISTORY: 57 years. Male. Acute left-sided weakness. Acute | RADIOLOGY | | embolic stroke. TECHNIQUE: Imaging was performed on a 1.5 Mayra | | | MRI system. Multiplanar sequences were acquired according to a | | | standard department protocol without contrast. A 3D noncontrast | | | bjog-yw-szjstd MRA sequence was acquired through the | [...] In - 01/08/2018 9:57 PM PDT [facility] | | HEAD01/08/2018 9:16 PMHISTORY:57 years. Male. Acute left-sided weakness. Acute embolic | | stroke.TECHNIQUE:Imaging was performed on a 1.5 Mayra MRI system. Multiplanar | | sequences were acquired according to a standard department protocol without contrast. | | A 3D noncontrast wkzo-tn-gjhehg MRA sequence was acquired through the head. [...] | + + + + + | [facility] | [address] | [place] [address] | | + + + + + [...] | + + + + + | [facility] | [address] | [place] [address] | | + + + + + [...] [facility] | [address] | [place] [address] | | + + + + + Cardiac Panel (01/08/2018 12:45 PM) + + + + + | Component | Value | Ref Range | Performed At | + + + + + | WBC | 14.08 (H) | 3.80 - 11.00 K/uL | [facility] | + + + + + | RBC | 5.35 | 4.20 - 5.70 M/uL | [facility] | + + + + + | HGB | 17.0 | 13.2 - 17.0 g/dL | [facility] | + + + + + | HCT | 49.5 | 39.0 - 50.0 % | [facility] | + + + + + | MCV | 92.6 | 80.0 - 100.0 fl | [facility] | + + + + + | MCH | 31.8 | 27.0 - 34.0 pg | [facility] | + + + + + | MCHC | 34.3 | 32.0 - 35.5 g/dL | [facility] | + + + + + | RDW SD | 46.8 | 37 - 53 fl | [facility] | + + + + + | PLT | 210 | 150 - 400 K/uL | [facility] | + + + + + [...] 8.9 | 8.5 - 10.5 mg/dL | [facility] | + + + + + | TOTAL PROTEIN | 7.5 | 6.3 - 8.2 g/dL | [facility] | + + + + + | Albumin | 3.8 | 3.6 - 5.0 g/dL | [facility] | + + + + + | GLOBULIN | 3.7 | 1.3 - 4.9 g/dL | [facility] | + + + + + | A/G | 1.0 | 1.0 - 2.4 | [facility] | + + + + + | TBIL | 0.3 | 0.1 - 1.5 mg/dL | [facility] | + + + + + | ALK PHOS | 96 | 35 - 115 U/L | [facility] | + + + + + | AST | 14 | 10 - 45 U/L | [facility] | + + + + + | ALT | 24 | 10 - 65 U/L | [facility] | + + + + + | EGFR | >60Comment: GFR <60: | >60 mL/min/1.73m2 | [facility] | | | CHRONIC KIDNEY DISEASE, [...] the | | | | | [facility]D [facility] traceable | | | | | equation. PLEASE NOTE | | | | | NEW CALCULATION | | | | | EFFECTIVE 12/18/2017 | | | + + + + + | CPK | 52 (L) | 55 - 400 U/L | [facility] | + + + + + | INR | 0.9Comment: REFERENCE | | [facility] | | | RANGE:0.9 - | [...] 27 | 23 - 32 seconds | [facility] | + + + + + | MMB | 0.9 | 0.5 - 3.6 ng/mL | [facility] | + + + + + | CK-MB Index | 1.7Comment: CK INDEX | | [facility] | | | INTERPRETATION: | | [...] | | | | | performed at [facility], [address] | | | | [address] [place], | | | | | [place] [address] | | | + + + + + + + + + + | Performing | Address | City/State/Zipcode | Phone Number | | Organization | | | | + + + + + | [facility] | [address] | [place] [address] | | + + + + + Troponin I (01/08/2018 12:45 PM) + + + + + | Component | Value | Ref Range | Performed At | + + + + + | TROPONIN I | <0.04Comment: 0.00 to | 0.00 - 0.10 ng/mL | [facility] | | | 0.10 CONSISTENT WITH | | | | | NORMAL POPULATION0.11 | | | | | to 0.60 CONSISTENT | | | | | WITH INCREASED RISK FOR | | | | | ADVERSE OUTCOMES> | | | | | 0.60 | | | | | CONSISTENT WITH WHO | | | | | CRITERIA FOR ACUTE [place] | | | | | Testing performed at | | | | | [facility], [address], | | | | | [place] [address] | | | + + + + + + + | Specimen | + + | Blood | + + + + + + + | Performing | Address | City/State/Zipcode | Phone Number | | Organization | | | | + + + + + | [facility] | [address] | [facility] [address] | | + + + + + [...] + + + + | Calculated P Morrow | 34 | degrees | [facility] | + + + + + | Calculated R Morrow | -31 | degrees | [facility] | + + + + + | Calculated T Morrow | 32 | degrees | [facility] | + + + + + | Diagnosis | Normal sinus rhythmLeft | | [facility] | | | axis deviationInferior | [...] -COMPUTER (500), | | | | | dictionary editor Nguyễn Garcia | | | | | Kleber (123) on 01/09/2018 | | | | | 1:16:57 AM | | | + + + + + + + + + + | Performing | Address | City/State/Zipcode | Phone Number | | Organization | | | | + + + + + | [facility] | [address] | [place] [address] | | + + + + + [...] | [facility] [facility] | [facility]DS | [id number] | | | | | | HEALTH [...] | | | jeremy | | | [address] | [address] | + +--------+ +--------+ + +
--- OUTSIDE RECORDS SUMMARY | ~2018-03-12 | XMS | Encounter Summary ---
Demographics + + + | Address | [address] | | | [place] [address] | + + + | Home Phone | | + + + | Preferred Language | Unknown | + + + | Marital Status | Single | + + + | Rastafari Affiliation | 1013 | + + + | Race | Unknown | + + + | Ethnic Group | Unknown | + + + Author + + + | Author | [facility] | + + + | Organization | [facility] | [employer] | + + + | Address | Unknown | + + + | Phone | Unavailable | + + + Support + + +---------+ + | Name | Relationship | Address | Phone | + + +---------+ + | Karol Ho | ECON | Unknown | | + + +---------+ + Care Team Providers + +------+ + | Care Quality Consultant Name | Role | Phone | + +------+ + | [place] Jude Magali BRICE | PCP | | + +------+ + Encounter Details +--------+ + + + + | Date | Type | Department | Care Team | Description | +--------+ + + + + | 01/08/ | Procedure | [facility] | | | | 2018 | [facility] | [address] | | | | | | [facility] [place] | | | | | | [address] | | | | | | [place] [address] | | | | | | [phone] | | | +--------+ + + + [...] | | | | | | [place] [address] | | | | | | [phone] | | | | | | | | +--------+ + + + + as of this encounter Visit Diagnoses Not on filein this encounter"
--- OUTSIDE RECORDS SUMMARY | ~2018-03-12 | XMS | Encounter Summary ---
Demographics + + + | Address | [address] | | | [place] [address] | + + + | Home Phone | | + + + | Preferred Language | Unknown | + + + | Marital Status | Single | + + + | Yazdanism Affiliation | 1013 | + + + | Race | Unknown | + + + | Ethnic Group | Unknown | + + + Author + + + | Author | [facility] | + + + | Organization | [facility] | + + + | Address | Unknown | + + + | Phone | Unavailable | + + + Support + + +---------+ + | Name | Relationship | Address | Phone | + + +---------+ + | Karol Ho | ECON | Unknown | | + + +---------+ + Care Team Providers + +------+ + | Care Field Hauler Name | Role | Phone | + +------+ + | [place] Jude Magali BRICE | PCP | | + +------+ + Encounter Details +--------+ + + + + | Date | Type | Department | Care Team | Description | +--------+ + + + + | 01/08/ | Procedure | [facility] | | | | 2018 | [facility] | [address] | | | | | | [facility] [place] | | | | | | [address] | | | | | | [place] [address] | | | | | | [phone] | | | +--------+ + + + [...] | | | | | | [place] [address] | | | | | | [phone] | | | | | | | | +--------+ + + + + as of this encounter Visit Diagnoses Not on filein this encounter"
--- OUTSIDE RECORDS SUMMARY | ~2018-03-12 | XMS | Encounter Summary ---
Demographics + + + | Address | [address] | | | [place] [address] | + + + | Home Phone | | + + + | Preferred Language | Unknown | + + + | Marital Status | Single | + + + | Judaism Affiliation | 1013 | + + + | Race | Unknown | + + + | Ethnic Group | Unknown | + + + Author + + + | Author | Julee Shareight | + + + | Organization | [facility] | + + + | Address | Unknown | + + + | Phone | Unavailable | + + + Support + + +---------+ + | Name | Relationship | Address | Phone | + + +---------+ + | Karol Peoples | ECON | Unknown | | + + +---------+ + Care Team Providers + +------+ + | Care Thread Singer Name | Role | Phone | + +------+ + | Herberth Jude Magali BRICE | PCP | | + +------+ + Reason for Visit + + + | Reason | Comments | + + + | Chest Pain | radiates to left arm heaviness intermittent since sunday and | | | worked up on sunday in [facility]. everything negative and sent | | [...] | | Internal | Diagnoses | | [facility] 7th | | | | Medicine | Acute | | [facility] [place] | | | | | left-sided | | [address] | | | | | weakness | | [address] | | | | | Acute | | [place], [place] | | | | | embolic | | [address] Phone: | | | | | stroke ([facility]) | | [phone] | | | | | | | | +--------+--------+ + + + + Encounter Details +--------+ + + + + | Date | Type | Department | Care Team | Description | +--------+ + + + + | 01/08/ | Hospital | [facility] | Estefania Garcia, | Acute left-sided | | 2018 - | Encounter | [address] | MD José [address] | weakness (Primary | | | | [facility] | EMERGENCY DEPARTMENT | Dx); Acute embolic | | 01/09/ | | [address] | [place] [address] | stroke (HCC) | | 2018 | | [place] [address] | [phone] | | | | | [phone] | | | | | | | Tommy Saez DO [address] | | | | | | [address] | | | | | | [place], [place] | | | | | | [address] | | | | | | [phone] | | | | | | | | | | | | Jamie Castro MD | | | | | | [address] | | | | | | [place] [address] | | | | | | [phone] | | | | | | | [...] since sunday and worked up on in [facility]. everything negative and sent home); Headache; and Extremity Weakness (left arm since sunday, increasing weakness) Hospital Course: Eris Peoples is a 57 y.o. male with htn, CAD with stents, hld who was admitted on 2017 with complaints of slurred speech and left sided weakness. Apparently the symptoms had began about 3 days ago. He also was seen in [place] for chest pain recently and [place] was rul ed out and patient sent [...] Jan 09 2018 6:42AM Referring Provider Line: [phone] ID: [id number] Mri Brain Without Contrast And [...] Information: Follow up: Jude Kevin, YUNIEL [address] [facility] [place] [id number] Schedule an appointment as soon as possible [...] the symptoms first appeared. Date Last Reviewed: 01/20/201719996021-[address] [place] [address]. All righ ts reserved. This information is [...] quit within a month, and do it. [place] to your quit plan Talk to your [...] Track your triggers What gives you that E-qjmt-v-cigarette feeling? List all the situations that make [...] wants to stop smoking. Date Last Reviewed: 01/21/201619992246-[address] [place] [address]. All righ ts reserved. This information is [...] to go in to the [facility] and apply for breonna care. They verbalized understanding and terrie l follow up. Pt lives at home w/ and 16yo dtr who are a support to him. Pt reports he h ad a CPAP, but lost this and insurance did not cover for another one. Pt uses no other DME o therwise. Pt aware he will be going to the [facility] and has no concerns at this time. Patient's PCP is: YUNIEL Rose - Seen last month. Patient's insurance: Self pay - Coverage concerns: will be applying for breonna care Medication coverage/concerns: yes Rx Bedside Delivery: Community resources utilized / needed: breonna care Assistance in transportation: , Karol [phone] can transport when ready. Identification of any [...] [place], | | | | | | [place] [address] | | | | | | [phone] | | | | | | | [...] | + +--------+ + + + | [facility] CARD PANEL W/O [...] MOR Siddiqui | 1+Comment: Testing | | [facility] | | | performed at [facility], [address] | | LABORATORY | | | [facility], | | | | | [place] [address] | | | + + + + + + + + + + | Performing | Address | City/State/Zipcode | Phone Number | | Organization | | | | + + + + + | [facility] | [address] [place] [address] | [place] [address] | [phone] | | LABORATORY | Blvd. | | [...] + + + + + | Specific Parker, UA | 1.006 | 1.002 - 1.030 [...] | [facility] | | | performed at [facility], [address] | | LABORATORY | | | [address], | | | | | [place] [address] | | | + + + + + + + | Specimen | + + | Urine - Urine, Clean | | Catch | + + + + + + + | Performing | Address | City/State/Zipcode | Phone Number | | Organization | | | | + + + + + | [facility] | [address] | [place] [address] | [phone] | | LABORATORY | Blvd. | | [...] ERIS PEOPLES Date of : 1960 | [facility] | | Performing Physician: Ana Stokes [...] TV A Asaf: 0.40 m/s TV Dec [place]: 1.66 | | | m/s2 TV Dec Time: 333.82 ms TV E Asaf: 0.55 m/s TV E/A | | | Ratio: 1.38 Press Helper: EVANGELINA Authenticated by: Ana | | | Divya BA Report Date/Time: 01-09-2018 19:9:14 | | + + + + ---------+ | Procedure Note | + ---------+ | Boyd Traylor Results In - 01/09/2018 7:09 PM PDT Patient Name: Luiz PEOPLES of | | : 1960Accession: [id number] Physician: Ana Stokes MD | | INDICATIONS [...] (A-L): | | 14.79 ml/m2LAAs A2C: 13.39 [id number] A-L A2C: 31.09 mlLALs A2C: 4.89 cmLAAs A4C: | | 11.87 nn9OHMIB A-L A4C: 28.45 mlLALs A4C: 4.20 cmAo Diam: 3.27 cmAV Cusp: 2.20 | | cmLA Diam: 3.69 cmLA/Ao: 1.12 TAPSE: 2.53 cmIVC diameter: 2.00 cmIVC collapse: | | 0.89 cmIVC % collapse: 53.55 %AV maxP.23 mmHgAV meanP.94 mmHgAV Vmax: | | 1.14 m/Mukul Vmean: 0.80 m/Mukul VTI: 27.23 cmAVA Vmax: 3.45 cm2AVA (VTI): 3.20 | | [id number] Vmax: 0.00 cm2/m2AVAI (VTI): 0.00 cm2/m2LVOT maxP.67 [...] A Asaf: | | 0.40 m/sTV Dec [place]: 1.66 m/s2TV Dec Time: 333.82 msTV E Asaf: 0.55 m/sTV E/A | | Ratio: 1.38 Press Helper: KVWAuthenticated by: Ana Stokes MDReport Date/Time: | [...] A Asaf: 0.40 m/s | |TV Dec [place]: 1.66 m/s2 | |TV Dec Time: 333.82 ms | |TV E Asaf: 0.55 m/s | |TV E/A Ratio: 1.38 | | | |Press Helper: KVW | |Authenticated by: Ana Stokes MD [...] | + + + + + | [facility] | [address] | [place] [address] | | + + + + + [...] Jan 09 2018 6:42AM Referring Provider Line: [phone] ID: | | | [id number] | | + + + + + + | Narrative | Performed At | + + + | EXAM: CAROTID DOPPLER ULTRASOUND EXAM DATE: 01/09/2018 06:04 AM. | [facility] | | CLINICAL HISTORY: Acute left-sided weakness. Stroke. | RADIOLOGY | | COMPARISON: None. TECHNIQUE: Real-time sonographic vascular | | | imaging was performed by the public works technician through the carotid arterial | | | system with a linear transducer utilizing color-flow, Doppler flow and | | | spectral analysis. Multiple branch sales and service representative static images were saved | | [...] sonographic vascular imaging was performed by the public works technician | | through the carotid arterial system with a linear transducer utilizing color-flow, | | Doppler flow and spectral analysis. Multiple branch sales and service representative static images were saved for | [...] Jan 09 2018 6:42AM Referring Provider Line: [phone] ID: [id number] | |Vertebral Mid: PSV 45 [...] 09 2018 6:42AM Referring Provider Line: [phone] ID: [id number] | + + + + + + + | Performing | Address | City/State/Zipcode | Phone Number | | Organization | | | | + + + + + | [facility] | [address] | [place] [address] | | + + + + + Magnesium (01/09/2018 4:57 AM) + + + + + | Component | Value | Ref Range | Performed At | + + + + + | MAGNESIUM | 1.8Comment: Testing | 1.7 - 2.4 mg/dL | [facility] | | | performed at [facility], [address] | | LABORATORY | | | [address], | | | | | [place] [address] | | | + + + + + + + | Specimen | + + | Blood | + + + + + + + | Performing | Address | City/State/Zipcode | Phone Number | | Organization | | | | + + + + + | [facility] | [address] | [place] [address] | [phone] | | LABORATORY | Blvd. | | [...] | [facility] | | | performed at [facility], [address] | | LABORATORY | | | [address], | | | | | [place] [address] | | | + + + + + + + | Specimen | + + | Blood | + + + + + + + | Performing | Address | City/State/Zipcode | Phone Number | | Organization | | | | + + + + + | [facility] | [address] | [place] [address] | [phone] | | LABORATORY | Blvd. | | | + + + + + Glycohemoglobin A1c (01/09/2018 4:57 AM) + + + + + | Component | Value | Ref Range | Performed At | + + + + + | HEMOGLOBIN A1C | 6.1 (H)Comment: The | 4.0 - 6.0 % | [facility] | | | [place] [facility] | | LABORATORY | | | [...] | 128Comment: The ADA | mg/dL | [facility] | | GLUCOSE | considers [...] | | | | | performed at [facility], [address] | | | | | [facility], | | | | | [place] [address] | | | + + + + + + + | Specimen | + + | Blood | + + + + + + + | Performing | Address | City/State/Zipcode | Phone Number | | Organization | | | | + + + + + | [facility] | [address] | [place] [address] | [phone] | | LABORATORY | Blvd. | | [...] performed at | | | | | [facility], [address] | | | | | [place] | | | | | [place] [address] | | | + + + + + + + | Specimen | + + | Blood | + + + + + + + | Performing | Address | City/State/Zipcode | Phone Number | | Organization | | | | + + + + + | [facility] | [address] | [place] [address] | [phone] | | LABORATORY | [place] | | [...] | [facility] | | | performed at [facility], [address] | | LABORATORY | | | [address], | | | | | [place] [address] | | | + + + + + + + | Specimen | + + | Blood | + + + + + + + | Performing | Address | City/State/Zipcode | Phone Number | | Organization | | | | + + + + + | [facility] | [address] | [place] [address] | [phone] | | LABORATORY | Blvd. | | [...] contrast. A 3D noncontrast | | | dznu-io-aczlkm MRA sequence was acquired through the | [...] without contrast. | | A 3D noncontrast rccu-lv-yjsvem MRA sequence was acquired through the head. [...] [facility] | [address] | [place] [address] | | + + + + + [...] | + + + + + | [facility] | [address] | [place] [address] | | + + + + + [...] | + + + + + | [facility] | [address] | [place] [address] | | + + + + + Troponin I (01/08/2018 12:45 PM) + + + + + | Component | Value | Ref Range | Performed At | + + + + + | TROPONIN I | <0.04Comment: 0.00 to | 0.00 - 0.10 ng/mL | [facility] | | | 0.10 CONSISTENT WITH | | | | | NORMAL POPULATION0.11 | | | | | to 0.60 CONSISTENT | | | | | WITH INCREASED RISK FOR | | | | | ADVERSE OUTCOMES> | | | | | 0.60 | | | | | CONSISTENT WITH WHO | | | | | CRITERIA FOR ACUTE [place] | | | | | Testing performed at | | | | | [facility], [address], | | | | | [place] [address] | | | + + + + + + + | Specimen | + + | Blood | + + + + + + + | Performing | Address | City/State/Zipcode | Phone Number | | Organization | | | | + + + + + | [facility] | [address] | [facility] [address] | | + + + + + Cardiac Panel (01/08/2018 12:45 PM) + + + + + | Component | Value | Ref Range | Performed At | + + + + + | WBC | 14.08 (H) | 3.80 - 11.00 K/uL | [facility] | + + + + + | RBC | 5.35 | 4.20 - 5.70 M/uL | [facility] | + + + + + | HGB | 17.0 | 13.2 - 17.0 g/dL | [facility] | + + + + + | HCT | 49.5 | 39.0 - 50.0 % | [facility] | + + + + + | MCV | 92.6 | 80.0 - 100.0 fl | [facility] | + + + + + | MCH | 31.8 | 27.0 - 34.0 pg | [facility] | + + + + + | MCHC | 34.3 | 32.0 - 35.5 g/dL | [facility] | + + + + + | RDW SD | 46.8 | 37 - 53 fl | [facility] | + + + + + | PLT | 210 | 150 - 400 K/uL | [facility] | + + + + [...] 8.9 | 8.5 - 10.5 mg/dL | [facility] | + + + + + | TOTAL PROTEIN | 7.5 | 6.3 - 8.2 g/dL | [facility] | + + + + + | Albumin | 3.8 | 3.6 - 5.0 g/dL | [facility] | + + + + + | GLOBULIN | 3.7 | 1.3 - 4.9 g/dL | [facility] | + + + + + | A/G | 1.0 | 1.0 - 2.4 | [facility] | + + + + + | TBIL | 0.3 | 0.1 - 1.5 mg/dL | [facility] | + + + + + | ALK PHOS | 96 | 35 - 115 U/L | [facility] | + + + + + | AST | 14 | 10 - 45 U/L | [facility] | + + + + + | ALT | 24 | 10 - 65 U/L | [facility] | + + + + + | EGFR | >60Comment: GFR <60: | >60 mL/min/1.73m2 | [facility] | | | CHRONIC KIDNEY [...] the | | | | | [facility]D [facility] traceable | | | | | equation. PLEASE NOTE | | | | | NEW CALCULATION | | | | | EFFECTIVE 12/18/2017 | | | + + + + + | CPK | 52 (L) | 55 - 400 U/L | [facility] | + + + + + | INR | 0.9Comment: REFERENCE | | [facility] | | | RANGE:0.9 - [...] 27 | 23 - 32 seconds | [facility] | + + + + + | MMB | 0.9 | 0.5 - 3.6 ng/mL | [facility] | + + + + + | CK-MB Index | 1.7Comment: CK INDEX | | [facility] | | | INTERPRETATION: | [...] | | | | | performed at [facility], [address] | | | | [address] [place], | | | | | [place] [address] | | | + + + + + + + + + + | Performing | Address | City/State/Zipcode | Phone Number | | Organization | | | | + + + + + | [facility] | [address] | [place] [address] | | + + + + + [...] + + + + | Calculated P [place] | 34 | degrees | [facility] | + + + + + | Calculated R [place] | -31 | degrees | [facility] | + + + + + | Calculated T [place] | 32 | degrees | [facility] | + + + + + | Diagnosis | Normal sinus rhythmLeft | | [facility] | | | axis deviationInferior [...] | | | | | ONLY, -COMPUTER ([id number]), | | | | | editorial writer Nguyễn Garcia | | | | | Kleber ([id number]) on 01/09/2018 | | | | | 1:16:57 AM | | | + + + + + + + + + + | Performing | Address | City/State/Zipcode | Phone Number | | Organization | | | | + + + + + | [facility] | [address] | [place] [address] | | + + + + + [...] Coronary atherosclerosis of unspecified type of vessel, wrangell or graft | + + | Leukocytosis [...]
--- OUTSIDE RECORDS SUMMARY | ~2018-03-12 | XMS | Clinical Summary ---
Demographics + + + | Address | [address] | | | [place] [address] | + + + | Home Phone | | + + + | Preferred Language | Unknown | + + + | Marital Status | Single | + + + | Druze Affiliation | CHR | + + + [...] Team Providers + +------+ + | Care Display Mechanic Name | Role | Phone | + +------+ + PP | Unavailable | + +------+ + Source Comments ISIDRO is fully live on both [facility] Ambulatory and [facility] InPatient.[facility] Allergies Not on File Current [...] | + +--------+ +--------+-------+---------+ | [facility] | | [phone] | Agency | | [...] | 1961 | [phone] | [place] [address] | | | jeremy | | | [phone] | | + +--------+ +--------+ + +"
--- OUTSIDE RECORDS SUMMARY | ~2018-03-12 | XMS | Clinical Summary ---
Demographics + + + | Address | [address] | | | [place] [address] | + + + | Home Phone | | + + + | Preferred Language | Unknown | + + + | Marital Status | | + + + | Jehovah'S Witness Affiliation | 1013 | + + + | Race | Unknown | + + + | Ethnic Group | Unknown | + + + Author + + + | Author | [facility] | | | and Suman | + + + | Organization | [facility] | | | and Eduardoana | + + + | Address | Unknown | + + + | Phone | Unavailable | + + + Support + + + + + | Name | Relationship | Address | Phone | + + + + + | Karol Peoples | ECON | [address] [place] | | | | | [address] | | + + + + + Care Team Providers + +------+ + | Care Certified Meeting Professional Name | Role | Phone | [...] Date | + + + | Acute HI (HCC) | 07/02/2017 | + + + [...] | 2018 | Visit | | [address] [facility] | | | | | | [place] | | | | | | [address] | | | | | | | [...] | [employer] | [employer] | [id number] | Medica | [phone] | | | [...] | 1961 | [phone] | [place] [address] | | | jeremy | | | 8717 | | + +--------+ +--------+ + +
[~2018-03-12 20:17] MED LIST changes: +TRAZODONE HCL50 MG PO
[2018-03-12] MEDS ORDERED: ASPIRIN81 MG PO (20:29)
--- NOTE | 2018-03-13 15:45 | EKG ---
[facility] [address] [facility] [place] [address] Signed Normal sinus rhythm Inferior infarct , age undetermined Possible Anterior infarct , age undetermined poor R wave progression Abnormal ECG When compared with ECG of 10-MAR-2018 06:19, Inferior infarct is now present Confirmed by THEODORA LARA DO ([id number]) on 03/13/2018 3:45:51 PM Electronically Signed By: THEODORA LARA DO 03/13/18 1545 PATIENT NAME: ERIS PEOPLESYDE Electrocardiogram DATE OF : 58 PHYSICIAN: THEODORA LARA DO REPORT #: [id number] REPORT IS CONFIDENTIAL AND NOT TO BE RELEASED WITHOUT AUTHORIZATION
== END 2018-03-12 22:20 | disposition home or self-care (01) ==
LOC: ED 20:17
DX: R07.9 Chest pain, unspecified (principal); I10 Essential (primary) hypertension; Z86.73 Personal history of transient ischemic attack (TIA), and cerebral infarction without residual deficits; I25.2 Old myocardial infarction; F17.200 Nicotine dependence, unspecified, uncomplicated; Z88.0 Allergy status to penicillin; Z88.5 Allergy status to narcotic agent; Z79.899 Other long term (current) drug therapy
CPT/HCPCS: 71045; 80053; 84484; 85025; 93005; 93010; 99285

== ENCOUNTER 2018-04-03 02:44 | Emergency (ER) | payer OTHER ==
[~2018-04-03] VITALS: Ht 175.3 cm; Wt 99.8 kg
--- OUTSIDE RECORDS SUMMARY | ~2018-04-03 | XMS | Encounter Summary ---
Demographics + + + | Address | [address] | | | [place] [address] | + + + | Home Phone | | + + + | Preferred Language | Unknown | + + + | Marital Status | | + + + | Moravian Affiliation | 1013 | + + + | Race | Unknown | + + + | Ethnic Group | Unknown | + + + Author + + + | Author | [facility] | | | and [place] | + + + | Organization | [facility] | | | and [place] | + + + | Address | Unknown | + + + | Phone | Unavailable | + + + Support + + + + + | Name | Relationship | Address | Phone | + + + + + | Karol Ho | ECON | [place] | | | | | [address] | | + + + + + Care Team Providers + +------+ + | Care Carpet Cleaning Technician Name | Role | Phone | + +------+ + | Jude Kevin NP | PCP | | + +------+ + Encounter Details +--------+ + + + + | Date | Type | Department | Care Team | Description | +--------+ + + + + | 01/08/ | Imaging | [facility] | Provider, | | | 2018 | Exam | [facility] | [address] | | | | | IMAGING | [address] | | | | | [phone] | [place] [address] | | +--------+ + + + + Social History + +-------+ +--------+ + | Tobacco Use | Types | Packs/Day | Years | Date | | | | | Used | | + +-------+ +--------+ + | Former Smoker | | 1 | 15 | Quit: 05/25/2017 | + +-------+ +--------+ + + + +---------+ + | Alcohol Use | Drinks/We | oz/Week | Comments | | | ek | | | + + +---------+ + | No | | | | + + +---------+ + + + + | Sex Assigned at | Date Recorded | | | | + + + | Not on file | | + + + as of this encounter Plan of Treatment +--------+---------+ + + + | Date | Type | Specialty | Care Team | Description | +--------+---------+ + + + | 04/04/ | Office | Neurology | Juan Manuel Khanna, | | | 2017 | Visit | | [facility] | | | | | | [place] | | | | | | [address] | | | | | | | | +--------+---------+ + + + as of this encounter Procedures + +--------+ + + + | Procedure Name | Priori | Date/Time | Associated Diagnosis | Comments | | | ty | | | | + +--------+ + + + | MRI BRAIN WO | Routin | 01/08/2018 | | Results for this | | CONTRAST | e | 2039 PDT | | procedure are in the | | | | | | results section. | + +--------+ + + + in this encounter Results MRI Brain wo Contrast (01/08/20182039) + + + | Narrative | Performed At | + + + | External films for comparison only | [facility] | | | | | No results will be in the chart. | | + + + + +---------+ + + | Performing | Address | City/State/Zipcode | Phone Number | | Organization | | | | + +---------+ + + | [facility] | | | | + +---------+ + + in this encounter Visit Diagnoses Not on filein this encounter"
--- OUTSIDE RECORDS SUMMARY | ~2018-04-03 | XMS | Encounter Summary ---
Demographics + + + | Address | [address] | | | [place] [address] | + + + | Home Phone | | + + + | Preferred Language | Unknown | + + + | Marital Status | | + + + | Anabaptist Affiliation | 1013 | + + + | Race | Unknown | + + + | Ethnic Group | Unknown | + + + Author + + + | Author | [facility] | | | and [place] | + + + | Organization | [facility] | | | and [place] | + + + | Address | Unknown | + + + | Phone | Unavailable | + + + Support + + + + + | Name | Relationship | Address | Phone | + + + + + | Karol Ho | ECON | [place] | | | | | [address] | | + + + + + Care Team Providers + +------+ + | Care Vice President Compliance Name | Role | Phone | + +------+ + | Jude Kevin NP | PCP | | + +------+ + Encounter Details +--------+ + + + + | Date | Type | Department | Care Team | Description | +--------+ + + + + | 01/09/ | Imaging | [facility] | Provider, | | | 2018 | Exam | [facility] | [address] | | | | | IMAGING | [address] | | | | | [phone] | [place] [address] | | +--------+ + + + + [...] 2017 | Visit | | [facility] | | | | | | [place] | | | | | | [address] | | | | | | | | +--------+---------+ + + + as of this encounter Procedures + +--------+ + + + | Procedure Name | Priori | Date/Time | Associated Diagnosis | Comments | | | ty | | | | + +--------+ + + + | ECHO COMPLETE | Routin | 01/09/2018 | | Results for this | | | e | 1045 PDT | | procedure are in the | | | | | | results section. | + +--------+ + + + in this encounter Results ECHO Complete (01/09/2018 1045) + + + | Narrative | Performed [...]
--- OUTSIDE RECORDS SUMMARY | ~2018-04-03 | XMS | Encounter Summary ---
Demographics + + + | Address | [address] | | | [place] [address] | + + + | Home Phone | | + + + | Preferred Language | Unknown | + + + | Marital Status | | + + + | Hindu Affiliation | 1013 | + + + | Race | Unknown | + + + | Ethnic Group | Unknown | + + + Author + + + | Author | [facility] | | | and [place] | + + + | Organization | [facility] | | | and [place] | + + + | Address | Unknown | + + + | Phone | Unavailable | + + + Support + + + + + | Name | Relationship | Address | Phone | + + + + + | Karol Ho | ECON | [place] | | | | | [address] | | + + + + + Care Team Providers + +------+ + | Care Irrigation Supervisor Name | Role | Phone | + [...] [address] | | | | | [phone] | [place] [address] | | +--------+ + + + + [...] 2017 | Visit | | MD [facility] | | | | | | [place] | | | | | | [address] | | | | | | | | +--------+---------+ + + + as of this encounter Procedures + +--------+ + + + | Procedure Name | Priori | Date/Time | Associated Diagnosis | Comments | | | ty | | | | + +--------+ + + + | CT HEAD WO CONTRAST | Routin | 01/08/2018 | | Results for this | | | e | 1315 PDT | | procedure are in the | | | | | | results section. | + +--------+ + + + in this encounter Results CT Head wo Contrast (01/08/2018 1315) + + + | Narrative | Performed [...]
--- OUTSIDE RECORDS SUMMARY | ~2018-04-03 | XMS | Encounter Summary ---
Demographics + + + | Address | [address] | | | [place] [address] | + + + | Home Phone | | + + + | Preferred Language | Unknown | + + + | Marital Status | Single | + + + | Cheondoism Affiliation | 1013 | + + + | Race | Unknown | + + + | Ethnic Group | Unknown | + + + Author + + + | Author | [facility] | + + + | Organization | [facility] | + + + | Address | Unknown | + + + | Phone | Unavailable | + + + Support + + +---------+ + | Name | Relationship | Address | Phone | + + +---------+ + | Lety Ho | ECON | Unknown | | + + +---------+ + Care Team Providers + +------+ + | Care Restaurant Line Cook Name | Role | Phone | + +------+ + | Jude Kevin | PCP | | + +------+ + Encounter Details +--------+ + + + + | Date | Type | Department | Care Team | Description | +--------+ + + + + | 01/08/ | Procedure | [facility] | | | | 2018 | Pass | [address] | | | | | | Floor [facility] | | | | | | [address] [facility] | | | | | | [place] [address] | | | | | | [phone] | | | +--------+ + + + + Social History + +-------+ +--------+------+ | Tobacco [...] | | | + +---+---+---+ + + +---------+ + | Alcohol Use [...] Description | +--------+---------+ + + + | 04/16/ | Office | Cardiology | Chris Schneider, | | | 2017 | Visit | | MD [address] | | | | | | [place], | | | | | | [place] [address] | | | | | | [phone] | | | | | | | | +--------+---------+ + + + as of this encounter Visit Diagnoses Not on filein this encounter"
--- OUTSIDE RECORDS SUMMARY | ~2018-04-03 | XMS | Encounter Summary ---
Demographics + + + | Address | [address] | | | [place] [address] | + + + | Home Phone | | + + + | Preferred Language | Unknown | + + + | Marital Status | | + + + | Hindu Affiliation | 1013 | + + + | Race | Unknown | + + + | Ethnic Group | Unknown | + + + Author + + + | Author | [facility] | | | and [place] | + + + | Organization | [facility] | | | and [place] | + + + | Address | Unknown | + + + | Phone | Unavailable | + + + Support + + + + + | Name | Relationship | Address | Phone | + + + + + | Karol Ho | ECON | [place] | | | | | [address] | | + + + + + Care Team Providers + +------+ + | Care Tablet Technician Name | Role | Phone | [...] [address] | | | | | [phone] | [place] [address] | | +--------+ + + + + [...] 2017 | Visit | | [facility] | | | | | | [place] | | | | | | [address] | | | | | | | [...]
--- OUTSIDE RECORDS SUMMARY | ~2018-04-03 | XMS | Encounter Summary ---
Demographics + + + | Address | [address] | | | [place] [address] | + + + | Home Phone | | + + + | Preferred Language | Unknown | + + + | Marital Status | | + + + | Church Affiliation | 1013 | + + + | Race | Unknown | + + + | Ethnic Group | Unknown | + + + Author + + + | Author | [facility] | | | and [place] | + + + | Organization | [facility] | | | and [place] | + + + | Address | Unknown | + + + | Phone | Unavailable | + + + Support + + + + + | Name | Relationship | Address | Phone | + + + + + | Karol Ho | ECON | [place] | | | | | [address] | | + + + + + Care Team Providers + +------+ + | Care Medical Insurance Verifier Name | Role | Phone | + +------+ + | Jude Kevin NP | PCP | | + +------+ + Encounter Details +--------+ + + + + | Date | Type | Department | Care Team | Description | +--------+ + + + + | 03/26/ | Abstract | [facility] | Juan Manuel Khanna, | | | 2018 | | NEUROLOGY [facility] | [address] [facility] | | | | | [address] | [place] | | | | | [place] | [address] | | | | | [address] | | | | | | [phone] | | | +--------+ + + + [...] | | 2017 | Visit | | [address] [facility] | | | | | | [place] | | | | | | [address] | | | | | | | | +--------+---------+ + + + as of this encounter Visit Diagnoses Not on filein this encounter"
--- OUTSIDE RECORDS SUMMARY | ~2018-04-03 | XMS | Encounter Summary ---
Demographics + + + | Address | [address] | | | [place] [address] | + + + | Home Phone | | + + + | Preferred Language | Unknown | + + + | Marital Status | Single | + + + | Episcopalian Affiliation | 1013 | + + + | Race | Unknown | + + + | Ethnic Group | Unknown | + + + Author + + + | Author | [facility] | + + + | Organization | [facility] | + + + | Address | Unknown | + + + | Phone | Unavailable | + + + Support + + +---------+ + | Name | Relationship | Address | Phone | + + +---------+ + | Lety Ho | ECON | Unknown | | + + +---------+ + Care Team Providers + +------+ + | Care Mobile Paint Specialist Name | Role | Phone | + +------+ + | Jude Kevin | PCP | | + +------+ + Reason for Visit + + + | Reason | Comments | + + + | Consultation | | + + + Consultation (Routine) + +--------+ + + + + | Status | Reason | Specialty | Diagnoses / | Referred By | Referred To | | | | | Procedures | Contact | Contact | + +--------+ + + + + | New Request | | Cardiology | Diagnoses | [place], | Rat[place], | | | | | Old | YUNIEL iRley | MD Kee | | | | | myocardial | [address] | [address] | | | | | infarction | Constantine Muller | Dr Garcia | | | | | Essential | [place], | [place] | | | | | (primary) | [place] [address] | [address] Phone: | | | | | hypertension | Phone: | [phone] | | | | | Angina | [phone] | Fax: | | | | | pectoris, | Fax: | [phone] | | | | | unspecified | [phone] | | | | | | ([facility]) | | | | | | | Procedures | | | | | | | Consult | | | + +--------+ + + + + Encounter Details +--------+ + + + + | Date | Type | Department | Care Team | Description | +--------+ + + + + | 03/19/ | Initial | [facility] | Chris Schneider, | Encounter for | | 2018 | consult | Cardiology Alexei | MD [address] | consultation | | | | [address] | [place], | (Primary Dx); Old | | | | [facility] [address] | [place] [address] | myocardial | | | | [place] [address] | [phone] | infarction; Coronary | | | | [phone] | | artery disease | | | | | | involving gambell | | | | | | coronary artery of | | | | | | gambell heart without | | | | | | angina pectoris; | | | | | | Tobacco abuse; | | | | | | Hyperlipidemia, | | | | | | unspecified | | | | | | hyperlipidemia type; | | | | | | Essential | | | | | | hypertension; | | | | | | Presence of drug | | | | | | coated stent in | | | | | | posterior descending | | | | | | branch of right | | | | | | coronary artery; | | | | | | Obstructive sleep | | | | | | apnea syndrome; | | | | | | Non-cardiac chest | | | | | | pain | +--------+ + + + + Social History + +-------+ +--------+------+ | Tobacco Use | Types | Packs/Day | Years | Date | | | | | Used | | + +-------+ +--------+------+ | Current Every Day | | 1.5 | 48 | | | Smoker | | | | | + +-------+ +--------+------+ + +---+---+---+ | Smokeless Tobacco: | | | | | Never Used | | | | + +---+---+---+ + + | Tobacco Cessation: Ready to Quit: Yes; Counseling Given: Yes | | Comments: vape pen | + + + + +---------+ + [...] + + + | Blood Pressure | 118/72 | 03/19/2018 1:36 PM PDT | + + + + | Pulse | 76 | 03/19/2018 1:25 PM PDT | + + + + | Temperature | - | - | + + + + | Respiratory Rate | - | - | + + + + | Oxygen Saturation | 98% | 03/19/2018 1:25 PM PDT | + + + + | Inhaled Oxygen | - | - | | Concentration | | | + + + + | Weight | 100.6 kg (221 lb | 03/19/2018 1:25 PM PDT | | | 12.8 oz) | | + + + + | Height | 172.7 cm (5' 8") | 03/19/2018 1:25 PM PDT | + + + + | Body Mass Index | 33.72 | 03/19/2018 1:25 PM PDT | + + + + in this encounter Progress Notes Chris Schneider MD - 03/19/2018 1:15 PM PDTFormatting of this note may be different from the original. Subjective: Patient ID: Spencer Ho is a 57 y.o. male. HPI The following portions of the patient's history were reviewed and updated as appropriate an d is available elsewhere in the record: allergies, current medications, past family history, past medical history, past social history, past surgical history and problem list. Mr. Ho came to the office today for a cardiology evaluation. He had previously seen Jhonatan Evans MD in [place], was told that he did not require further follow up. He has a history of coronary artery disease, with an inferior KS 05/25/17, and primary PCI, with 2 drug-eluting stents placed in the mid PDA, which had a 99% stenosis. He was hospitalized at [facility] 01/08/18, for slurred speech and left-sided weakness that began 3 days prior to admis judith. When the symptoms began, he had chest pain, and was seen at the emergency room at [facility], but had negative troponins and was sent home. As the neurologic deficits persisted, he first went to the [facility] freestanding Emergency Department, and was then admi tted to the main hospital overnight. An workup was negative, including a brain CT, MRI/MRA and carotid ultrasound. His echocardiogram was unremarkable. He still has mild speech diff iculty and mild left-sided weakness he has what appears to be noncardiac chest pain, lower l eft lateral pectoral discomfort that began a few weeks after his KS, occurring once or twice per day. He describes it as a burning discomfort, subjectively "5" on a 1-10 scale in inte nsity, lasting anywhere between 10 and 45 seconds. It is not related to exertion, and more frequently occurs at rest. It is pleuritic, and is also positional, being worse when bendin g forward. There is some associated dyspnea and diaphoresis, but no nausea or radiation. Caridad saez was told that he can take extra strength Tylenol for this, but to avoid NSAIDs. He is sti ll on aspirin and Plavix (the latter until at least June [place] and with his stroke, po ssibly indefinitely). He has an appointment with a neurologist next month. 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 He has also had significa nt depression, with suicidal ideation and one suicidal attempt 2 weeks ago, but has sought elp, and is receiving daily calls from [employer]. He has also moved in with one of his daugh shaheen and her boyfriend, which he states helps. His blood pressure and hyperlipidemia are we ll controlled. He is on CPAP for sleep apnea. A recent 48 hour Holter monitor for palpitat ions and his stroke, and I have requested the results. He will follow up in approximately 4 weeks for further evaluation and treatment. Review of Systems CONSTITUTIONAL: 30 lb weight decrease since his KS in 07/08, denies recent fever, chills, night sweats, c/o significant fatigue NEUROLOGIC: ? history of a CVA, with slurred speech and left-sided weakness starting , with residual speech hesitancy and left-sided weakness. There were no brain lesions on the CT and MRI/MRA. No history of a prior CVA or TIA. He was unresponsive in early February,, per his daughter's report to him, but did not seek medical attention. He has Migrain es "every day", denies seizures, syncope. No dizziness, lightheadedness. No numbness, tingl ing, paresthesias. -- Brain MRI/MRA (01/08/18): Normal -- Brain CT (01/08/18): Normal EYES: No amaurosis, has Diplopia, no other recent visual changes, cataracts or glaucoma ENT: He has hearing aides for bilateral Hearing Loss, Tinnitus, no epistaxis, dysphagia ENDOCRINE: "borderline" Diabetes. No history of thyroid disorders or other endocrine probl ems. No excessive hunger, notes recent increased thirst. PULMONARY/SLEEP: No dyspnea, orthopnea, paroxysmal nocturnal dyspnea. He has a history of asthma in childhood, denies emphysema despite a h/o Tobacco Abuse. No history of pneumonia. He has Obstructive Sleep Apnea, on CPAP. CARDIOVASCULAR: He has chest pain, as above. He has a history of CAD, Inferior KS 05/25/17 (manifested by severe, sharp left lower lateral pectoral pain, with SOB), 2 GERALD placed in t he mid PDA. No history of heart failure. No history of documented cardiac arrhythmias. He yoon s fairly frequent Palpitations, feeling his heart "racing" up to 30 minutes 2-3 x per day. No history of a heart murmur, rheumatic fever. He has Essential Hypertension, Hyperlipidemi a. No edema, has left-sided fatigue, ? claudication symptoms walking 1-2 blocks. No h/o an AAA. -- Echo (01/09/18): EF 65-70%, normal RV size, function. Mild MR, trace TR, PI. No ASD, VS D -- Carotid U/S (01/09/18): Mild bilateral plaquing, no significant stenosis -- Cardiac Cath / Primary PCI (05/25/17 - [facility]): LM-normal. LAD-normal. LCx-nondomin ant, normal. Ramus-no significant disease. RCA-large, dominant, 99% mid PDA stenosis > 2.5 x 20, 2.5 x 8 mm Promus GERALD postdilated to 2.75 mm -- Lipid panel (01/09/18-on atorvastatin 40 mg): TC-153, LDL-93, HDL-21, TG-197, normal LFTs GASTROINTESTINAL: No recent abdominal pain, nausea, vomiting or diarrhea. Denies PUD, candis na, hematochezia, hepatitis. RENAL/: No history of kidney disease. No dysuria, hematuria, urinary urgency, hesitancy . He had a UTI 03/09, resolved with antibiotics. HEMATOLOGY/ONCOLOGY: No h/o bleeding disorders, DVT, PE. He notes easy bruisability on A SA and Plavix, no significant bleeding. No history of anemia, transfusions. No history of cancer. MUSCULOSKELETAL: No myalgias, has hand, knee arthralgias. No history of rheumatologic or autoimmune diseases. CUTANEOUS: No rashes, pruritus, lesions. PSYCHIATRIC: He admits Depression (suicidal ideation, related to his 's infidelity, ta lking to [employer], has a crisis hotline #, they call him daily), attempted suicide but stopp ed himself in mid February,; no active plans for suicide. He has Anxiety, no other psych iatric problems. Past Medical History Diagnosis Date Cerebrovascular accident (CVA) ([facility]) 01/05/2018 slurred speech, left-sided weakness for 3 days, improved Congestive heart failure (HCC) Coronary artery disease 05/25/2017 99% mid-PDA stenosis > 2 Promus GERALD Hyperlipidemia Hypertension Old myocardial infarction 05/25/2017 Inferior KS Presence of drug coated stent in posterior descending branch of right coronary artery 1 07/25/2017 Primary PCI for acute inferior KS, 2 Promus GERALD (2.5x20 & 2.5x8 mm) post-dilated to 2.75 m m Sleep apnea on CPAP ([facility]) Syncope and collapse Tobacco abuse Past Surgical History Procedure Laterality Date CARDIAC CATHETERIZATION CORONARY ANGIOPLASTY 05/25/2017 Primary PCI for acute inferior KS, 2 Promus GERALD (2.5x20 & 2.5x8 mm) post-dilated to 2.75 m m KNEE ARTHROPLASTY Left 2015 TONSILLECTOMY Family History Problem Relation Age of Onset Heart failure Mother Coronary Artery Disease Sister Deep vein thrombosis Sister Diabetes Mellitus II Brother Hypertension Brother Hyperlipidemia Brother Social History Substance Use Topics Smoking status: Current Every Day Smoker Packs/day: 1.50 Years: 48.00 Smokeless tobacco: Never Used Comment: vape pen Alcohol use No Allergies Allergen Reactions Hydrocodone Hives Penicillins Hives Current Outpatient Prescriptions: aspirin 81 MG chewable tablet, Take 81 mg by mouth daily with breakfast., Disp: , Rfl: atorvastatin (LIPITOR) 40 MG tablet, Take 1 tablet by mouth nightly., Disp: 30 tablet, Rfl: 0 clopidogrel (PLAVIX) 75 MG tablet, Take 75 mg by mouth daily., Disp: , Rfl: lisinopril (ZESTRIL) 2.5 MG tablet, Take 10 mg by mouth daily., Disp: , Rfl: metoprolol (TOPROL-XL) 25 MG 24 hr tablet, Take 25 mg by mouth daily., Disp: , Rfl: Objective: Physical Exam BP 118/72 (BP Location: Left upper arm, Patient Position: Sitting) | Pulse 76 | Ht 1.727 m (5' 8") | Wt 100.6 kg (221 lb 12.8 oz) | SpO2 98% | BMI 33.72 kg/m BP 120/64 (right arm) GENERAL: Well developed, well nourished, in no distress. Appears approximately stated age . HEENT: Normocephalic, atraumatic. Bilateral hearing aids. EYES: PERRL, sclerae anicteric, no xanthelsasmas MOUTH: Oral mucosae moist, dentition adequate, no lesions noted NECK: No JVD, lymphadenopathy, thyromegaly, bruits. Carotid pulses are 2+ bilaterally LUNGS: Clear bilaterally, with no rales, rhonchi or wheezing noted, respirations unlabored HEART: Nondisplaced PMI, regular rate and rhythm, S1, S2 normal. No murmurs, rubs or gall ops noted. ABDOMEN: Soft, nontender, no organomegaly, masses or bruits. Bowel sounds are normal in a ll 4 quadrants. The abdominal aortic pulsation is not palpable. EXTREMITIES: No edema. Radial pulses 2+ bilaterally. Femoral pulses are 2+ bilaterally wi thout bruits. DP and PT pulses are 1+ bilaterally. SKIN: Warm and dry, capillary refill is normal, thickening, grayish skin on the elbows, no other lesions. NEUROLOGIC: Awake, alert and oriented x 3. Mild-moderate speech deficit with very hesitan t, somewhat stuttering speech, and mild left-sided weakness. PSYCHIATRIC: Appropriate, affect appears normal EKG: Sinus rhythm, rate 69, old inferior KS, no change from 01/08/18 Assessment and Plan: Spencer was seen today for consultation. Encounter for consultation - Electrocardiogram, 12-lead Old myocardial infarction Coronary artery disease involving gambell coronary artery of gambell heart without angina pec toris Tobacco abuse Hyperlipidemia, unspecified hyperlipidemia type Essential hypertension Presence of drug coated stent in posterior descending branch of right coronary artery in this encounter Plan of Treatment +--------+---------+ + + + | Date | Type | Specialty | Care Team | Description | +--------+---------+ + + + | 04/16/ | Office | Cardiology | Chris Schneider, | | | 2017 | Visit | | [address] | | | | | | [place], | | | | | | [place] [address] | | | | | | [phone] | | | | | | | | +--------+---------+ + + + as of this encounter Procedures + +--------+ + + + | Procedure Name | Priori | Date/Time | Associated Diagnosis | Comments | | | ty | | | | + +--------+ + + + | [facility] STANDARD 12 LEAD | Routin | 03/19/2018 | Encounter for | Results for this | | | e | 1:41 PM | consultation | procedure are in the | | | | PDT | | results section. | + +--------+ + + + in this encounter Results [facility] STANDARD 12 LEAD (03/19/2018 1:41 PM) + + + + + | Component | Value | Ref Range | Performed At | + + + + + | Ventricular Rate | 69 | BPM | [facility] | + + + + + | Atrial Rate | 69 | BPM | [facility] | + + + + + | P-R Interval | 150 | ms | [facility] | + + + + + | QRS Duration | 88 | ms | [facility] | + + + + + | Q-T Interval | 410 | ms | [facility] | + + + + + | QTC Calculation | 439 | ms | [facility] | | ([place]) | | | | + + + + + | Calculated P [place] | 31 | degrees | [facility] | + + + + + | Calculated R [place] | -14 | degrees | [facility] | + + + + + | Calculated T [place] | 7 | degrees | [facility] | + + + + + | Diagnosis | Normal sinus | | [facility] | | | rhythmInferior infarct | | | | | (cited on or before | | | | | 08-JAN-2018)Abnormal | | | | | ECGWhen compared with | | | | | ECG of 08-JAN-2018 | | | | | 12:40,No significant | | | | | change was foundPlease | | | | | refer to Providers | | | | | office visit note for | | | | | Providers | | | | | Interpretation.Confirmed | | | | | by [facility] [place] Read Only, | | | | | [facility] ([id number]), | | | | | medical transcription editor [place] Lang | | | | | ([id number]) on 03/19/2018 | | | | | 2:14:21 PM | | | + + + + + + + + + + | Performing | Address | City/State/Zipcode | Phone Number | | Organization | | | | + + + + + | [facility] | [address] | [facility] [place] [address] | | + + + + + in this encounter Visit Diagnoses + + | Diagnosis | + + | Encounter for consultation - Primary | + + | Unspecified reason for consultation | + + | Old myocardial infarction | + + | Coronary artery disease involving gambell coronary artery of gambell heart without angina | | pectoris | + + | Tobacco abuse | + + | Tobacco use disorder | + + | Hyperlipidemia, unspecified hyperlipidemia type | + + | Essential hypertension | + + | Unspecified essential hypertension | + + | Presence of drug coated stent in posterior descending branch of right coronary artery | + + | Postsurgical percutaneous transluminal coronary angioplasty status | + + | Obstructive sleep apnea syndrome | + + | Obstructive sleep apnea (adult) (pediatric) | + + | Non-cardiac chest pain | + + | Other chest pain | + + | Chronic ischemic right middle cerebral artery (MCA) stroke | + + | Transient ischemic attack (TIA), and cerebral infarction without residual deficits | + +
--- OUTSIDE RECORDS SUMMARY | ~2018-04-03 | XMS | Encounter Summary ---
Demographics + + + | Address | [address] | | | [place] [address] | + + + | Home Phone | | + + + | Preferred Language | Unknown | + + + | Marital Status | Single | + + + | Evangelical Affiliation | 1013 | + + + | Race | Unknown | + + + | Ethnic Group | Unknown | + + + Author + + + | Author | [facility] | + + + | Organization | [facility] [facility] | + + + | Address | Unknown | + + + | Phone | Unavailable | + + + Support + + +---------+ + | Name | Relationship | Address | Phone | + + +---------+ + | Lety Peoples | ECON | Unknown | | + + +---------+ + Care Team Providers + +------+ + | Care Yard Conductor Name | Role | Phone | + +------+ + | Jude Kevin | PCP | | + +------+ + Reason for Visit + + + | Reason | Comments | + + + | Chest Pain | radiates to left arm heaviness intermittent since sunday and | | | worked up on sunday in [facility]. everything negative and sent | | | [...] | | Internal | Diagnoses | | [facility] 7th | | | | Medicine | Acute | | [address] [place] | | | | | left-sided | | [address] | | | | | weakness | | [address] | | | | | Acute | | [place], [place] | | | | | embolic | | [address] Phone: | | | | | stroke ([facility]) | | [phone] | | | | | | | | +--------+--------+ + + + + Encounter Details +--------+ + + + + | Date | Type | Department | Care Team | Description | +--------+ + + + + | 01/08/ | Hospital | [facility] | Estefania Garcia, | Acute left-sided | | 2018 - | Encounter | [address] | MD José MURCIA | weakness (Primary | | | | [facility] EMER[facility]ENCY DEPARTMENT | Dx); Acute embolic | | 01/09/ | | [address] | [place] [address] | stroke (HCC) | | 2017 | | [place] [address] | [phone] | | | | | [phone] | | | | | | | Tommy Saez DO [address] | | | [address] | | | | | | [place], [place] | | | | | | [address] | | | | | | [phone] | | | | | | | | | | | | Jamie Castro MD | | | | | | [address] | | | | | | [place] [address] | | | | | | [phone] | | | | | | | [...] since sunday and worked up on in [facility]. everything negative and sent home); Headache; and Extremity Weakness (left arm since sunday, increasing weakness) Hospital Course: Eris Peoples is a 57 y.o. male with htn, CAD with stents, hld who was admitted on 2017 with complaints of slurred speech and left sided weakness. Apparently the symptoms had began about 3 days ago. He also was seen in [place] for chest pain recently and MD was rul ed out and patient sent [...] Jan 09 2018 6:42AM Referring Provider Line: [phone] ID: [id number] Mri Brain Without Contrast And [...] regarding echocardiogram results Discharge Information: Follow up: YUNIEL Hollingsworth [address] [facility] [place] [address] Schedule an appointment as soon as possible [...] the symptoms first appeared. Date Last Reviewed: 01/20/201719998338-[address] [employer] [place], [place] [id number]. All righ ts reserved. This information is [...] quit within a month, and do it. [place] to your quit plan Talk to your [...] Track your triggers What gives you that E-jtrc-o-cigarette feeling? List all the situations that make [...] wants to stop smoking. Date Last Reviewed: 01/21/201619994842-[address] [employer] [place] [address]. All righ ts reserved. This information is [...] +--------+---------+ + + | lisinopril | Take 10 mg by mouth | | | | [...] mg | daily. | | | | 8 | | capsule | | | | | | + + +--------+---------+ + + as of this encounter Progress Notes Niki Dee, GIULIA - 01/08/2018 3:21 PM PDTFormatting of this [...] was encouraged to go in to the [facility] and apply for breonna care. They verbalized understanding and terrie l follow up. Pt lives at home w/ and 16yo dtr who are a support to him. Pt reports he h ad a CPAP, but lost this and insurance did not cover for another one. Pt uses no other DME o therwise. Pt aware he will be going to the main hospital and has no concerns at this time. Patient's PCP is: YUNIEL Rose - Seen last month. Patient's insurance: Self pay - Coverage concerns: will be applying for breonna care Medication coverage/concerns: yes Rx Bedside Delivery: Community resources utilized / needed: breonna care Assistance in transportation: , Karol [phone] can transport when ready. Identification of any specific education / training: none Barriers to Discharge / Alternative housing needed: TBD Anticipated DCP: likely back home Niki Dee in this encounter Plan of Treatment +--------+---------+ + + + | Date | Type | Specialty | Care Team | Description | +--------+---------+ + + + | 04/16/ | Office | Cardiology | Chris Schneider, | | | 2017 | Visit | | MD [address] | | | | | | [place], | | | | | | [place] [address] | | | | | | [phone] | | | | | | | [...] | + +--------+ + + + | [employer] CARD PANEL W/O | STAT | 01/08/2018 [...] MOR Siddiqui | 1+Comment: Testing | | [facility] | | | performed at [facility], [address] | | LABORATORY | | | [address] [place], | | | | | [place] [address] | | | + + + + + + + + + + | Performing | Address | City/State/Zipcode | Phone Number | | Organization | | | | + + + + + | [facility] | [address] [place] [address] | [place] [address] | [phone] | | LABORATORY | [place]. | | [...] + + + + + | Specific [place], UA | 1.006 | 1.002 - 1.030 [...] | [facility] | | | performed at [facility], [address] | | LABORATORY | | | [address], | | | | | [place] [address] | | | + + + + + + + | Specimen | + + | Urine - Urine, Clean | | Catch | + + + + + + + | Performing | Address | City/State/Zipcode | Phone Number | | Organization | | | | + + + + + | [facility] | [address] [facility] | [place] [address] | [phone] | | LABORATORY | [address]vd[address] | | [...] ERIS PEOPLES Date of : 1960 | [facility] | | Performing Physician: Ana Stokes [...] TV A Asaf: 0.40 m/s TV Dec [place]: 1.66 | | | m/s2 TV Dec Time: 333.82 ms TV E Asaf: 0.55 m/s TV E/A | | | Ratio: 1.38 Skoog Operator: EVANGELINA Authenticated by: Ana | | | Divya BA Report Date/Time: 01-09-2018 19:9:14 | | + + + + ---------+ | Procedure Note | + ---------+ | Boyd Traylor Results In - 01/09/2018 7:09 PM PDT Patient Name: Joshua PEOPLES | | : 1960Accession: [id number] Physician: Ana Stokes MD | | INDICATIONS [...] (A-L): | | 14.79 ml/m2LAAs A2C: 13.39 [id number] A-L A2C: 31.09 mlLALs A2C: 4.89 cmLAAs A4C: | | 11.87 [id number] A-L A4C: 28.45 mlLALs A4C: 4.20 cmAo Diam: 3.27 cmAV Cusp: 2.20 | | cmLA Diam: 3.69 cmLA/Ao: 1.12 TAPSE: 2.53 cmIVC diameter: 2.00 cmIVC collapse: | | 0.89 cmIVC % collapse: 53.55 %AV maxP.23 mmHgAV meanP.94 mmHgAV Vmax: | | 1.14 m/Mukul Vmean: 0.80 m/Mukul VTI: 27.23 cmAVA Vmax: 3.45 cm2AVA (VTI): 3.20 | | uf4FTWM Vmax: 0.00 cm2/m2AVAI (VTI): 0.00 cm2/m2LVOT maxP.67 [...] A Asaf: | | 0.40 m/sTV Dec [place]: 1.66 m/s2TV Dec Time: 333.82 msTV E Asaf: 0.55 m/sTV E/A | | Ratio: 1.38 Skoog Operator: DESIuthenticated by: Ana Stokes MDReport Date/Time: | | [...] A Asaf: 0.40 m/s | |TV Dec [place]: 1.66 m/s2 | |TV Dec Time: 333.82 ms | |TV E Asaf: 0.55 m/s | |TV E/A Ratio: 1.38 | | | |Skoog Operator: IRENEW | |Authenticated by: Ana Stokes MD | [...] | + + + + + | [facility] | [address] | [place] [address] | | + + + + + Ultrasound carotid doppler bilateral (01/09/2018 6:03 AM) + + + | Impressions | Performed At | + + + | 1. Mild bilateral carotid plaquing without significant stenosis. | [facility] | | 2. Antegrade flow in both [...] Jan 09 2018 6:42AM Referring Provider Line: [phone] ID: | | | [id number] | | + + + + + + | Narrative | Performed At | + + + | EXAM: CAROTID DOPPLER ULTRASOUND EXAM DATE: 01/09/2018 06:04 AM. | [facility] | | CLINICAL HISTORY: Acute left-sided weakness. Stroke. | RADIOLOGY | | COMPARISON: None. TECHNIQUE: Real-time sonographic vascular | | | imaging was performed by the pickle maker through the carotid arterial | | | system with a linear transducer utilizing color-flow, Doppler flow and | | | spectral analysis. Multiple event marketing representative static images were saved | [...] sonographic vascular imaging was performed by the pickle maker | | through the carotid arterial system with a linear transducer utilizing color-flow, | | Doppler flow and spectral analysis. Multiple event marketing representative static images were saved for [...] Jan 09 2018 6:42AM Referring Provider Line: [phone] ID: [id number] | |Vertebral Mid: PSV 45 [...] 09 2018 6:42AM Referring Provider Line: [phone] ID: [id number] | + + + + + + + | Performing | Address | City/State/Zipcode | Phone Number | | Organization | | | | + + + + + | [facility] | [address] | [place] [address] | | + + + + + Magnesium (01/09/2018 4:57 AM) + + + + + | Component | Value | Ref Range | Performed At | + + + + + | MAGNESIUM | 1.8Comment: Testing | 1.7 - 2.4 mg/dL | [facility] | | | performed at [facility], [address] | | LABORATORY | | | [place], | | | | | [place] [address] | | | + + + + + + + | Specimen | + + | Blood | + + + + + + + | Performing | Address | City/State/Zipcode | Phone Number | | Organization | | | | + + + + + | [facility] | [address] [facility] | [place] [address] | [phone] | | LABORATORY | Blvd. | | [...] | [facility] | | | performed at [facility], [address] | | LABORATORY | | | [place], | | | | | [place] [address] | | | + + + + + + + | Specimen | + + | Blood | + + + + + + + | Performing | Address | City/State/Zipcode | Phone Number | | Organization | | | | + + + + + | [facility] | [address] [facility] | [place] [address] | [phone] | | LABORATORY | [address]vd[address] | | | + + + + + Glycohemoglobin A1c (01/09/2018 4:57 AM) + + + + + | Component | Value | Ref Range | Performed At | + + + + + | HEMOGLOBIN A1C | 6.1 (H)Comment: The | 4.0 - 6.0 % | [facility] | | | [facility] | | LABORATORY | | | [...] | 128Comment: The ADA | mg/dL | [facility] | | GLUCOSE | considers an eAG [...] | | | | | performed at [facility], [address] | | | | | [facility], | | | | | [place] [address] | | | + + + + + + + | Specimen | + + | Blood | + + + + + + + | Performing | Address | City/State/Zipcode | Phone Number | | Organization | | | | + + + + + | [facility] | [address] [facility] | [place] [address] | [phone] | | LABORATORY | Blvd. | | [...] performed at | | | | | [facility], [address] | | | | | [place], | | | | | [place] [address] | | | + + + + + + + | Specimen | + + | Blood | + + + + + + + | Performing | Address | City/State/Zipcode | Phone Number | | Organization | | | | + + + + + | [facility] | [address] [facility] | [place] [address] | [phone] | | LABORATORY | [place] | | [...] | [facility] | | | performed at [facility], [address] | | LABORATORY | | | [place], | | | | | [place] [address] | | | + + + + + + + | Specimen | + + | Blood | + + + + + + + | Performing | Address | City/State/Zipcode | Phone Number | | Organization | | | | + + + + + | [facility] | [address] [facility] | [place] [address] | [phone] | | LABORATORY | Blvd. | | | + + + + + MRI brain without contrast and MRA head (01/08/2018 9:16 PM) + + + | Impressions | Performed At | + + + | 1. Normal MRI examination of the brain without contrast. | [facility] | | 2. MRA of the cerebral [...] AND MRA HEAD 01/08/2018 9:16 PM | [facility] | | HISTORY: 57 years. Male. Acute left-sided weakness. Acute | RADIOLOGY | | embolic stroke. TECHNIQUE: Imaging was performed on a 1.5 Mayra | | | MRI system. Multiplanar sequences were acquired according to a | | | standard department protocol without contrast. A 3D noncontrast | | | wirp-zf-wvzaum MRA sequence was acquired through the | [...] In - 01/08/2018 9:57 PM PDT ERIS Malave [facility] BRAIN WO AND MRA | | HEAD01/08/2018 9:16 PMHISTORY:57 years. Male. Acute left-sided weakness. Acute embolic | | stroke.TECHNIQUE:Imaging was performed on a 1.5 Mayra MRI system. Multiplanar | | sequences were acquired according to a standard department protocol without contrast. | | A 3D noncontrast lzhi-ax-owymnc MRA sequence was acquired through the head. [...] | + + + + + | [facility] | [address] | [place] [address] | | + + + + + CT Head Non-Contrast (01/08/2018 1:27 PM) + + + | Impressions | Performed At | + + + | 1. Brain is negative for acute pathology. Electronically | [facility] | | signed by Ranjit Estrella MD [...] [facility] | [address] | [place] [address] | | + + + + + [...] 2 VIEW FRONTAL AND LATERAL 01/08/2018 | [facility] | | 1:19 PM HISTORY: 57 years. [...] | + + + + + | [facility] | [address] | [place] [address] | | + + + + + Troponin I (01/08/2018 12:45 PM) + + + + + | Component | Value | Ref Range | Performed At | + + + + + | TROPONIN I | <0.04Comment: 0.00 to | 0.00 - 0.10 ng/mL | [facility] | | | 0.10 CONSISTENT WITH | | | | | NORMAL POPULATION0.11 | | | | | to 0.60 CONSISTENT | | | | | WITH INCREASED RISK FOR | | | | | ADVERSE OUTCOMES> | | | | | 0.60 | | | | | CONSISTENT WITH WHO | | | | | CRITERIA FOR ACUTE MD | | | | | Testing performed at | | | | | [facility], [address], | | | | | [place] [address] | | | + + + + + + + | Specimen | + + | Blood | + + + + + + + | Performing | Address | City/State/Zipcode | Phone Number | | Organization | | | | + + + + + | [facility] | [address] | [place] [address] | | + + + + + Cardiac Panel (01/08/2018 12:45 PM) + + + + + | Component | Value | Ref Range | Performed At | + + + + + | WBC | 14.08 (H) | 3.80 - 11.00 K/uL | [facility] | + + + + + | RBC | 5.35 | 4.20 - 5.70 M/uL | [facility] | + + + + + | HGB | 17.0 | 13.2 - 17.0 g/dL | [facility] | + + + + + | HCT | 49.5 | 39.0 - 50.0 % | [facility] | + + + + + | MCV | 92.6 | 80.0 - 100.0 fl | [facility] | + + + + + | MCH | 31.8 | 27.0 - 34.0 pg | [facility] | + + + + + | MCHC | 34.3 | 32.0 - 35.5 g/dL | [facility] | + + + + + | RDW SD | 46.8 | 37 - 53 fl | [facility] | + + + + + | PLT | 210 | 150 - 400 K/uL | [facility] | + + + + + | MPV | 7.9 | fl | [facility] | + + + + + [...] 25 | 23 - 32 mmol/L | [facility] | + + + + + | ANION GAP AGAP | 16 | 5 - 20 mmol/L | [facility] | + + + + + | GLUCOSE | 98 | 65 - 99 mg/dL | [facility] | + + + + + | BUN | 10 | 8 - 25 mg/dL | [facility] | + + + + + | CREATININE | 0.88 | 0.70 - 1.30 mg/dL | [facility] | + + + + + | BUN/CREAT | 11 | | [facility] | + + + + + | CALCIUM | 8.9 | 8.5 - 10.5 mg/dL | [facility] | + + + + + | TOTAL PROTEIN | 7.5 | 6.3 - 8.2 g/dL | [facility] | + + + + + | Albumin | 3.8 | 3.6 - 5.0 g/dL | [facility] | + + + + + | GLOBULIN | 3.7 | 1.3 - 4.9 g/dL | [facility] | + + + + + | A/G | 1.0 | 1.0 - 2.4 | [facility] | + + + + + | TBIL | 0.3 | 0.1 - 1.5 mg/dL | [facility] | + + + + + | ALK PHOS | 96 | 35 - 115 U/L | [facility] | + + + + + | AST | 14 | 10 - 45 U/L | [facility] | + + + + + | ALT | 24 | 10 - 65 U/L | [facility] | + + + + + | EGFR | >60Comment: GFR <60: | >60 mL/min/1.73m2 | [facility] | | | CHRONIC KIDNEY [...] (L) | 55 - 400 U/L | [facility] | + + + + + | INR | 0.9Comment: REFERENCE | | [facility] | | | RANGE:0.9 - [...] 27 | 23 - 32 seconds | [facility] | + + + + + | MMB | 0.9 | 0.5 - 3.6 ng/mL | [facility] | + + + + + | CK-MB Index | 1.7Comment: CK INDEX | | [facility] | | | INTERPRETATION: | [...] | | | | | performed at [facility], [address] [place], | | | | | [place] [address] | | | + + + + + + + + + + | Performing | Address | City/State/Zipcode | Phone Number | | Organization | | | | + + + + + | [facility] | [address] | [facility] [place] [address] | | + + + + + EKG 12 LEAD UNIT PERFORMED (01/08/2018 12:40 PM) + + + + + | Component | Value | Ref Range | Performed At | + + + + + | Ventricular Rate | 86 | BPM | [facility] | + + + + + [...] + + + + | Calculated P Overgaard | 34 | degrees | [facility] | + + + + + | Calculated R [place] | -31 | degrees | [facility] | + + + + + | Calculated T [place] | 32 | degrees | [facility] | + + + + + | Diagnosis | Normal sinus rhythmLeft | | [facility] | | | axis deviationInferior [...] -COMPUTER (500), | | | | | content editor Nguyễn Garcia | | | | | Kleber (123) on 01/09/2018 | | | | | 1:16:57 AM | | | + + + + + + + + + + | Performing | Address | City/State/Zipcode | Phone Number | | Organization | | | | + + + + + | [facility] | [address] | [place] [address] | | + + + + + [...] Coronary atherosclerosis of unspecified type of vessel, chemehuevi or graft | + + | Leukocytosis [...] PRN, Nausea, | | | Vomiting, Starting e 01/08/18 | | | at 1918 | | + +---+ | | | + +---+ + +-------+ +--------+---+---+ | sodium chloride (PF) 0.9 % | Given | | 10 mLs | | | | flush 10 mL 10 mL, Intravenous, | | 8 12:59 | | | | | Every 8 Hours, First dose on Sun | | [...]
--- OUTSIDE RECORDS SUMMARY | ~2018-04-03 | XMS | Encounter Summary ---
Demographics + + + | Address | [address] | | | [place] [address] | + + + | Home Phone | | + + + | Preferred Language | Unknown | + + + | Marital Status | | + + + | Anabaptist Affiliation | 1013 | + + + | Race | Unknown | + + + | Ethnic Group | Unknown | + + + Author + + + | Author | [facility] | | | and [facility] | + + + | Organization | [facility] | | | and [facility] | + + + | Address | Unknown | + + + | Phone | Unavailable | + + + Support + + + + + | Name | Relationship | Address | Phone | + + + + + | Karol Ho | ECON | [place] | | | | | [address] | | + + + + + Care Team Providers + +------+ + | Care Brine Well Operator Name | Role | Phone | [...] BrainseRigoberto MAN | | | | | [phone] | [place] [address] | | +--------+ + + + + [...] | Visit | | MD Muller [facility] | | | | | | [place] | | | | | | [address] | | | | | | | | +--------+---------+ + + + as of this encounter Procedures + +--------+ + + + | Procedure Name | Priori | Date/Time | Associated Diagnosis | Comments | | | ty | | | | + +--------+ + + + | XR CHEST 2 VIEWS | Routin | 01/08/2018 | | Results for this | | | e | 1310 PDT | | procedure are in the | | | | | | results section. | + +--------+ + + + in this encounter Results XR Chest 2 Vws (01/08/2018 1310) + + + | Narrative | Performed [...]
--- OUTSIDE RECORDS SUMMARY | ~2018-04-03 | XMS | Encounter Summary ---
Demographics + + + | Address | [address] | | | [place] [address] | + + + | Home Phone | | + + + | Preferred Language | Unknown | + + + | Marital Status | Single | + + + | Mandaen Affiliation | 1013 | + + + | Race | Unknown | + + + | Ethnic Group | Unknown | + + + Author + + + | Author | [facility] | + + + | Organization | [facility] | + + + | Address | Unknown | + + + | Phone | Unavailable | + + + Support + + +---------+ + | Name | Relationship | Address | Phone | + + +---------+ + | Lety Ho | ECON | Unknown | | + + +---------+ + Care Team Providers + +------+ + | Care Legal Specialist Name | Role | Phone | [...] | | | | Old | YUNIEL Riley | MD Kee | | | | | myocardial | [address] | [address] | | | | | infarction | Constantine Muller | Dr [address] | | | | | Essential | [place], | [place] | | | | | (primary) | [place] [address] | [address] Phone: | | | | | hypertension | Phone: | [phone] | | | | | Angina | [phone] | Fax: | | | | | pectoris, | Fax: | [phone] | | | | | unspecified | [phone] | | | | | | (FORM[facility]) | | | | | | | Procedures | | | | | | | Consult | | | + +--------+ + + + + Encounter Details +--------+ + + + + | Date | Type | Department | Care Team | Description | +--------+ + + + + | 03/19/ | Initial | [facility] | Chris Schneider, | Encounter for | | 2018 | consult | Cardiology Alexei | MD [address] | consultation | | | | [address] | [place], | (Primary Dx); Old | | | | [facility] [address] | [place] [address] | myocardial | | | | [place] [address] | [phone] | infarction; Coronary | | | | [phone] | | artery disease | | | | | | involving douglas | | | | | | coronary artery of | | | | | | douglas heart without | | | | | [...] had previously seen Jhonatan Evans MD in [place], was told that he did not require further follow up. He has a history of coronary artery disease, with an inferior ME 05/25/17, and primary PCI, with 2 drug-eluting stents placed in the mid PDA, which had a 99% stenosis. He was hospitalized at [facility] 01/08/18, for slurred speech and left-sided weakness that began 3 days prior to admis judith. When the symptoms began, he had chest pain, and was seen at the emergency room at [facility], but had negative troponins and was sent home. As the neurologic deficits persisted, he first went to the [facility] freestanding Emergency Department, and was then admi tted to the main hospital overnight. An workup was negative, including a brain CT, MRI/MRA and carotid ultrasound. His echocardiogram was unremarkable. He still has mild speech diff iculty and mild left-sided weakness he has what appears to be noncardiac chest pain, lower l eft lateral pectoral discomfort that began a few weeks after his ME, occurring once or twice per day. He [...] Plavix (the latter until at least June [place] and with his stroke, po ssibly indefinitely). He has an appointment with a neurologist next month. 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 He has also had significa nt depression, with suicidal ideation and one suicidal attempt 2 weeks ago, but has sought elp, and is receiving daily calls from [employer]. He has also moved in with one [...] CONSTITUTIONAL: 30 lb weight decrease since his ME in 07/08, denies recent fever, chills, night [...] He has a history of CAD, Inferior ME 05/25/17 (manifested by severe, sharp left lower [...] Cardiac Cath / Primary PCI (05/25/17 - [facility]): LM-normal. LAD-normal. LCx-nondomin ant, normal. Ramus-no significant [...] to his 's infidelity, ta lking to [employer], has a crisis hotline #, they call him daily), attempted suicide but stopp ed himself in mid February,; no active plans for suicide. He has Anxiety, no other psych iatric problems. Past Medical History Diagnosis Date Cerebrovascular accident (CVA) ([facility]) 01/05/2018 slurred speech, left-sided weakness for 3 days, improved Congestive heart failure (HCC) Coronary artery disease 05/25/2017 99% mid-PDA stenosis > 2 Promus GERALD Hyperlipidemia Hypertension Old myocardial infarction 05/25/2017 Inferior ME Presence of drug coated stent in posterior descending branch of right coronary artery 1 07/25/2017 Primary PCI for acute inferior ME, 2 Promus GERALD (2.5x20 & 2.5x8 mm) post-dilated to 2.75 m m Sleep apnea on CPAP (SAH) Syncope and collapse Tobacco abuse Past Surgical History Procedure Laterality Date CARDIAC CATHETERIZATION CORONARY ANGIOPLASTY 05/25/2017 Primary PCI for acute inferior ME, 2 Promus GERALD (2.5x20 & 2.5x8 mm) [...] EKG: Sinus rhythm, rate 69, old inferior ME, no change from 01/08/18 Assessment and Plan: Spencer was seen today for consultation. Encounter for consultation - Electrocardiogram, 12-lead Old myocardial infarction Coronary artery disease involving douglas coronary artery of douglas heart without angina pec toris Tobacco abuse [...] | | | | | | [place] [address] | | | | | | [phone] | | | | | | | | +--------+---------+ + + + as of this encounter Procedures + +--------+ + + + | Procedure Name | Priori | Date/Time | Associated Diagnosis | Comments | | | ty | | | | + +--------+ + + + | [facility] STANDARD 12 LEAD | Routin | 03/19/2018 | Encounter for | Results for this | | | e | 1:41 PM | consultation | procedure are in the | | | | PDT | | results section. | + +--------+ + + + in this encounter Results [facility] STANDARD 12 LEAD (03/19/2018 1:41 PM) + [...] + + + + | Calculated P [place] | 31 | degrees | [facility] EKG | + + + + + | Calculated R [place] | -14 | degrees | [facility] EKG | + + + + + | Calculated T [place] | 7 | degrees | [facility] EKG [...] | | | | | by [facility] [place] Read Only, | | | | | [facility] [place] ([id number]), | | | | | international editorial producer [place] Lang | | | | | ([id number]) on 03/19/2018 | | | | | 2:14:21 PM | | | + + + + + + + + + + | Performing | Address | City/State/Zipcode | Phone Number | | Organization | | | | + + + + + | [facility] | [address] | [place] [address] | | + + + + + in this encounter Visit Diagnoses + + | Diagnosis | + + | Encounter for consultation - Primary | + + | Unspecified reason for consultation | + + | Old myocardial infarction | + + | Coronary artery disease involving douglas coronary artery of douglas heart without angina | | pectoris | [...]
--- OUTSIDE RECORDS SUMMARY | ~2018-04-03 | XMS | Encounter Summary ---
Demographics + + + | Address | [address] | | | [place] [address] | + + + | Home Phone | | + + + | Preferred Language | Unknown | + + + | Marital Status | | + + + | Caodaism Affiliation | 1013 | + + + | Race | Unknown | + + + | Ethnic Group | Unknown | + + + Author + + + | Author | [facility] | | | and [place] | + + + | Organization | [facility] | | | and [place] | + + + | Address | Unknown | + + + | Phone | Unavailable | + + + Support + + + + + | Name | Relationship | Address | Phone | + + + + + | Karol Ho | ECON | [place] | | | | | [address] | | + + + + + Care Team Providers + +------+ + | Care Doughnut Machine Operator Helper Name | Role | Phone | [...] [address] | | | | | [phone] | [place] [address] | | +--------+ + + + + [...] 2017 | Visit | | MD Muller [facility] | | | | | | [place] | | | | | | [address] | | | | | | | [...]
--- OUTSIDE RECORDS SUMMARY | ~2018-04-03 | XMS | Encounter Summary ---
Demographics + + + | Address | [address] | | | [place] [address] | + + + | Home Phone | | + + + | Preferred Language | Unknown | + + + | Marital Status | | + + + | Jainism Affiliation | 1013 | + + + | Race | Unknown | + + + | Ethnic Group | Unknown | + + + Author + + + | Author | [facility] | | | and [facility] | + + + | Organization | [facility] | | | and [place] | + + + | Address | Unknown | + + + | Phone | Unavailable | + + + Support + + + + + | Name | Relationship | Address | Phone | + + + + + | Karol Ho | ECON | [place] | | | | | [address] | | + + + + + Care Team Providers + +------+ + | Care Paper Rewinder Operator Name | Role | Phone | + +------+ + | Jude Kevin NP | PCP | | + +------+ + Encounter Details +--------+ + + + + | Date | Type | Department | Care Team | Description | +--------+ + + + + | 03/15/ | Ancillary | [facility] | Provider, | | | 2018 | Orders | [facility] | MD [address] | | | | | IMAGING | [address] | | | | | [phone] | [place] [address] | | +--------+ + + + + [...] | 2017 | Visit | | [address] [facility] | | | | | | [place] | | | | | | [address] | | | | | | | | +--------+---------+ + + + as of this encounter Results CT Head wo Contrast (02/02/2018 0935) + + + | Narrative | Performed [...] | | | + +---------+ + + ECHO Complete (01/09/2018 104) + + + | Narrative | Performed [...] | | | + +---------+ + + VAS Carotid Duplex Bilateral (01/09/2018519) + + + | Narrative | Performed [...] | | | + +---------+ + + MRI Brain wo Contrast (01/08/20182039) + + [...] | | | + +---------+ + + CT Head wo Contrast (01/08/2018 1315) + [...] | | | + +---------+ + + XR Chest 2 Vws (01/08/20180) + + + | Narrative | Performed [...]
--- OUTSIDE RECORDS SUMMARY | ~2018-04-03 | XMS | Encounter Summary ---
Demographics + + + | Address | [address] | | | [place] [address] | + + + | Home Phone | | + + + | Preferred Language | Unknown | + + + | Marital Status | | + + + | Taoist Affiliation | 1013 | + + + | Race | Unknown | + + + | Ethnic Group | Unknown | + + + Author + + + | Author | [facility] | | | and [place] | + + + | Organization | [facility] | | | and [place] | + + + | Address | Unknown | + + + | Phone | Unavailable | + + + Support + + + + + | Name | Relationship | Address | Phone | + + + + + | Karol Ho | ECON | [place] | | | | | [address] | | + + + + + Care Team Providers + +------+ + | Care Refractory Worker Name | Role | Phone | [...] [address] | | | | | [phone] | [place] [address] | | +--------+ + + + + [...] 2017 | Visit | | MD Muller [facility] | | | | | | [place] | | | | | | [address] | | | | | | | [...]
--- OUTSIDE RECORDS SUMMARY | ~2018-04-03 | XMS | Encounter Summary ---
Demographics + + + | Address | [address] | | | [place] [address] | + + + | Home Phone | | + + + | Preferred Language | Unknown | + + + | Marital Status | | + + + | Mormonism Affiliation | 1013 | + + + | Race | Unknown | + + + | Ethnic Group | Unknown | + + + Author + + + | Author | [facility] | | | and [place] | + + + | Organization | [facility] | | | and [place] | + + + | Address | Unknown | + + + | Phone | Unavailable | + + + Support + + + + + | Name | Relationship | Address | Phone | + + + + + | Karol Ho | ECON | [place] | | | | | [address] | | + + + + + Care Team Providers + +------+ + | Care Log Clerk Name | Role | Phone | + +------+ + | Jude Kevin NP | PCP | | + +------+ + Encounter Details +--------+ + + + + | Date | Type | Department | Care Team | Description | +--------+ + + + + | 03/15/ | Ancillary | [facility] | Provider, | | | 2018 | Orders | MED CTR EXTERNAL | [address] | | | | | IMAGING | [address] | | | | | [phone] | [place] [address] | | +--------+ + + + + [...] | 2017 | Visit | | [address] [facility] | | | | | | [place] | | | | | | [address] | | | | | | | [...]
--- OUTSIDE RECORDS SUMMARY | ~2018-04-03 | XMS | Clinical Summary ---
Demographics + + + | Address | [address] | | | [place] [address] | + + + | Home Phone | | + + + | Preferred Language | Unknown | + + + | Marital Status | Single | + + + | Yazidi Affiliation | 1013 | + + + | Race | Unknown | + + + | Ethnic Group | Unknown | + + + Author + + + | Author | [facility] | + + + | Organization | [facility] | + + + | Address | Unknown | + + + | Phone | Unavailable | + + + Support + + +---------+ + | Name | Relationship | Address | Phone | + + +---------+ + | Lety Peoples | ECON | Unknown | | + + +---------+ + Care Team Providers + +------+ + | Care Diamond Sizer And Sorter Name | Role | Phone | + +------+ + | Jude Kevin | PP | | + +------+ + [...] + + +--------+---------+------+------+-------+ | lisinopril | Take 10 mg by [...] | 19 | | + + +--------+---------+------+------+-------+ | diphenhydrAMINE | Take 25 mg by mouth | | | | 08/2 | Disco | | (BENADRYL) 25 mg | daily. | | | | 8/20 | ntinu | | capsule | | | | | 18 | ed | + + +--------+---------+------+------+-------+ Active Problems + + + | Problem | Noted Date | + + + | Essential hypertension | 01/08/2018 | + + + | Dyslipidemia | 01/08/2018 | + + + | CAD (coronary artery disease) | 01/08/2018 | + + + | Leukocytosis | 01/08/2018 | + + + | Old myocardial infarction | 05/25/2017 | + + + + + | Overview: Inferior DC | + + + + + | Coronary artery disease | 05/25/2017 | + + + + + | Overview: 99% mid-PDA stenosis > 2 Promus GERALD | + + + +---+ | Tobacco abuse | | + +---+ | Hyperlipidemia | | + +---+ | Hypertension | | + +---+ | Presence of drug coated stent in posterior descending branch of | | | right coronary artery | | + +---+ + + | Overview: Primary PCI for acute inferior DC, 2 Promus GERALD | | (2.5x20 & 2.5x8 mm) post-dilated to 2.75 mm | + + + +---+ | Sleep apnea | | + +---+ + + | Overview: on CPAP (SAH) | + + Resolved Problems + + + [...] + + | Acute cerebrovascular accident (CVA) ([facility]) | 01/09/20 | | | | 18 | 8 | + + + + Encounters +--------+ + + + + | Date | Type | Specialty | Care Team | Description | +--------+ + + + + | 03/29/ | Documentati | | Lalitha Pandey MA | [facility]mol ([facility] | | 2018 | on Only | | | Holter) | +--------+ + + + + | 03/19/ | Initial | | Chris Schneider, | Encounter for | | 2018 | consult | | | consultation | | | | | | (Primary Dx); Old | | | | | | myocardial | | | | | | infarction; Coronary | | | | | | artery disease | | | | | | involving poarch | | | | | | coronary artery of | | | | | | poarch heart without | | | | | [...] pain | +--------+ + + + + | 01/08/ | Hospital | | Estefania Garcia, | Acute left-sided | | 2018 - | Encounter | | Tommy Pabon DO | weakness (Primary | | | | | Jamie Castro MD | Dx); Acute embolic | | 01/09/ | | | | stroke (HCC) | | 2018 | | | | | +--------+ + + + + +---+ + | | Discharge | | | Summaries | | | - Matthew, | | | MD Jamie | | | - | | | 01/09/2018 | | | 2:13 PM | | | PDT | | | Formatting | | | of this | | | note may be | | | different | | | from the | | | original.Pa | | | tient: | | | Eris C | | | Richelle | | | : | | | 1960 | | | MRN: | | | [id number] | | | te of | | [...] | | | Jamie | | | Castro, | | | MDDischarge | | | [...] | | | since | | | saturday, | | | increasing | | | [...] | | recently | | | and DC was | | | ruled out | [...] | 01/07 1900 | | | - 01/09 | | | 0659In: 0 | | [...] | | | LabsLab | | | 45 | | | 7 | | | [...] LabsLab | | | | | | 5 INR 0.9 | [...] | | | 01/08/20181. | | | Brain is | | [...] | | by Ryne | | | MayhleMD | | | on Jose Elias 20 | | | 2018 | | | 6:42AM | | | Referring | | | Provider | | | Line: | | | [phone] | | | 5SITE ID: | | [...] | lly signed | | | by Edrosas | | | Iuliano, DO | | [...] | | | [place], | | | [id number] | | | [place] | | | [address] | | | n [place] | | | [phone] | | | [phone] | | | ule an | | [...] | | | DNR/DNIDisc | | | adam took | | | 51 minutes, | [...] | Procedure | | | | | 2018 | Pass | | | | +--------+ +---+---+---+ from Last 3 Months Family History + + +------+ + | Medical History | Relation | Name | Comments | + + +------+ + | Diabetes Mellitus II | Brother | | | + + +------+ + | Hyperlipidemia | Brother | | | + + +------+ + | Hypertension | Brother | | | + + +------+ + | Heart failure | Mother | | | + + +------+ + | Coronary Artery | Sister | | | | Disease | | | | + + +------+ + | Deep vein thrombosis | Sister | | | + + +------+ + + +------+ + + | Relation | Name | Status | Comments | + +------+ + + | Brother | | | diabetes complications | | | | (Age | | | | | 52) | | + +------+ + + | Brother | | Alive | | + +------+ + + | Brother | | Alive | | + +------+ + + | Daughter | | Alive | | + +------+ + + | Daughter | | Alive | | + +------+ + + | Father | | | drowned | | | | (Age | | | | | 35) | | + +------+ + + | Mother | | | CHF | | | | (Age | | | | | 75) | | + +------+ + + | Sister | | | "blood clots", ? PE | | | | (Age | | | | | 55) | | + +------+ + + | Sister | | Alive | | + +------+ + + | Son | | Alive | | + +------+ + + | Son | | Alive | | + +------+ + + | Son | | Alive | | + +------+ + + | Son | | Alive | | + +------+ + + Social History + +-------+ +--------+------+ [...] + + | 04/16/ | Office | | Chris Schneider, | | | 2017 | Visit | | MD [address] | | | | | | [place], | | | | | | [place] [address] | | | | | | [phone] | | | | | | | [...] | + + + + + | Lung Cancer | | | | | Screening | 5 | | | + + + + + | Vaccine: Influenza | | | | | (#1) | 8 | | | + + + + + Procedures + +--------+ + + + | Procedure Name | Priori | Date/Time | Associated Diagnosis | Comments | | | ty | | | | + +--------+ + + + | EKG STANDARD 12 LEAD | Routin | 03/19/2018 [...] + + from Last 3 Months Results EKG STANDARD 12 LEAD (03/19/2018 1:41 PM) + + + + + | Component | Value | Ref Range | Performed At | + + + + + | Ventricular Rate | 69 | BPM | [facility] | + + + + + [...] QTC Calculation | 439 | ms | [facility] | | (Bezet) | | | | + + + + + | Calculated P [place] | 31 | degrees | [facility] | + + + + + | Calculated R [place] | -14 | degrees | [facility] | + + + + + | Calculated T [place] | 7 | degrees | [facility] | + + + + + | Diagnosis | Normal sinus | | [facility] | | | rhythmInferior infarct | [...] | | | | | by ICA Kinder Read Only, | | | | | ICA Lyly ([id number]), | | | | | editor continuity and script Rome Lang | | | | | (704) on 03/19/2018 | | | | | 2:14:21 PM | | | + + + + + + + + + + | Performing | Address | City/State/Zipcode | Phone Number | | Organization | | | | + + + + + | [facility] | [address] | [place] [address] | | + + + + + Urine microscopic only (01/09/2018 11:48 AM) + [...] | [facility] | | | performed at [address], [address] | | LABORATORY | | | [address], | | | | | [place] [address] | | | + + + + + + + + + + | Performing | Address | City/State/Zipcode | Phone Number | | Organization | | | | + + + + + | [facility] | [address] | [place] [address] | [phone] | | LABORATORY | [address] | | [...] + + + + + | Specific [place], UA | 1.006 | 1.002 - 1.030 | [facility] | | | | | LABORATORY | + + + + + | LEUKOCYTE ESTERASE | KENNY Keller)Comment: | NEGATIVE | [facility] | | | [...] PROTEIN | NEGATIVE | NEGATIVE mg/dL | [facility] | | | | | LABORATORY | + + + + + | PH,URINE | 6.0 | 5.0 - 8.0 | [facility] | | | | | LABORATORY | [...] | [facility] | | | performed at [facility], [address] | | LABORATORY | | | [address], | | | | | [place] [address] | | | + + + + + + + | Specimen | + + | Urine - Urine, Clean | | Catch | + + + + + + + | Performing | Address | City/State/Zipcode | Phone Number | | Organization | | | | + + + + + | [facility] | [address] | [place] [address] | [phone] | | LABORATORY | Blvd. | | [...] ERIS PEOPLES Date of : 1960 | [facility] | | Performing Physician: Ana Stokes MD [...] TV A Asaf: 0.40 m/s TV Dec Hale: 1.66 | | | m/s2 TV Dec Time: 333.82 ms TV E Asaf: 0.55 m/s TV E/A | | | Ratio: 1.38 Survey Technologist: EVANGELINA Authenticated by: Ana | | | Divya BA Report Date/Time: 01-09-2018 19:9:14 | | + + + + ---------+ | Procedure Note | + ---------+ | Layton, Rad Results In - 01/09/2018 7:09 PM PDT Patient Name: Luiz PEOPLES of | | : 1960Accession: [id number] Physician: Ana Stokes MD | | INDICATIONS [...] (A-L): | | 14.79 ml/m2LAAs A2C: 13.39 [id number] A-L A2C: 31.09 mlLALs A2C: 4.89 cmLAAs A4C: | | 11.87 nu7XMTKD A-L A4C: 28.45 mlLALs A4C: 4.20 cmAo Diam: 3.27 cmAV Cusp: 2.20 | | cmLA Diam: 3.69 cmLA/Ao: 1.12 TAPSE: 2.53 cmIVC diameter: 2.00 cmIVC collapse: | | 0.89 cmIVC % collapse: 53.55 %AV maxP.23 mmHgAV meanP.94 mmHgAV Vmax: | | 1.14 m/Mukul Vmean: 0.80 m/Mukul VTI: 27.23 cmAVA Vmax: 3.45 cm2AVA (VTI): 3.20 | | yl4PJIR Vmax: 0.00 cm2/m2AVAI (VTI): 0.00 cm2/m2LVOT maxP.67 [...] A Asaf: | | 0.40 m/sTV Dec Hale: 1.66 m/s2TV Dec Time: 333.82 msTV E Asaf: 0.55 m/sTV E/A | | Ratio: 1.38 Survey Technologist: KVWAuthenticated by: Ana Stokes MDReport Date/Time: | [...] A Asaf: 0.40 m/s | |TV Dec Hale: 1.66 m/s2 | |TV Dec Time: 333.82 ms | |TV E Asaf: 0.55 m/s | |TV E/A Ratio: 1.38 | | | |Survey Technologist: KVW | |Authenticated by: Ana Stokes MD [...] | + + + + + | [facility] | [address] | [place] [address] | | + + + + + [...] Jan 09 2018 6:42AM Referring Provider Line: [phone] ID: | | | [id number] | | + + + + + + | Narrative | Performed At | + + + | EXAM: CAROTID DOPPLER ULTRASOUND EXAM DATE: 01/09/2018 06:04 AM. | [facility] | | CLINICAL HISTORY: Acute left-sided weakness. Stroke. | RADIOLOGY | | COMPARISON: None. TECHNIQUE: Real-time sonographic vascular | | | imaging was performed by the equipment installation professional through the carotid arterial | | | system with a linear transducer utilizing color-flow, Doppler flow and | | | spectral analysis. Multiple sales representatives static images were saved | | | [...] sonographic vascular imaging was performed by the equipment installation professional | | through the carotid arterial system with a linear transducer utilizing color-flow, | | Doppler flow and spectral analysis. Multiple sales representatives static images were saved for | | [...] Jan 09 2018 6:42AM Referring Provider Line: [phone] ID: [id number] | |Vertebral Mid: PSV 45 [...] 09 2018 6:42AM Referring Provider Line: [phone] ID: [id number] | + + + + + + + | Performing | Address | City/State/Zipcode | Phone Number | | Organization | | | | + + + + + | [facility] | [address] | [place] [address] | | + + + + + [...] | [facility] | | | performed at [facility], [address] | | LABORATORY | | | [address] [place], | | | | | [place] [address] | | | + + + + + + + | Specimen | + + | Blood | + + + + + + + | Performing | Address | City/State/Zipcode | Phone Number | | Organization | | | | + + + + + | [facility] | [address] | [place] [address] | [phone] | | LABORATORY | Blvd[address] | | | + + + + + Magnesium (01/09/2018 4:57 AM) + + + + + | Component | Value | Ref Range | Performed At | + + + + + | MAGNESIUM | 1.8Comment: Testing | 1.7 - 2.4 mg/dL | [facility] | | | performed at [facility], [address] | | LABORATORY | | | [address], | | | | | [place] [address] | | | + + + + + + + | Specimen | + + | Blood | + + + + + + + | Performing | Address | City/State/Zipcode | Phone Number | | Organization | | | | + + + + + | [facility] | [address] | [place] [address] | [phone] | | LABORATORY | Blvd[address] | | | + + + + + Glycohemoglobin A1c (01/09/2018 4:57 AM) + + + + + | Component | Value | Ref Range | Performed At | + + + + + | HEMOGLOBIN A1C | 6.1 (H)Comment: The | 4.0 - 6.0 % | [facility] | | | [facility] | | LABORATORY | | | [...] | | | | | performed at [facility], [address] | | | | | [address] [place], | | | | | [place] [address] | | | + + + + + + + | Specimen | + + | Blood | + + + + + + + | Performing | Address | City/State/Zipcode | Phone Number | | Organization | | | | + + + + + | [facility] | [address] | [place] [address] | [phone] | | LABORATORY | [address] | | [...] | [facility] | | | performed at [facility], [address] | | LABORATORY | | | [address], | | | | | [place] [address] | | | + + + + + + + | Specimen | + + | Blood | + + + + + + + | Performing | Address | City/State/Zipcode | Phone Number | | Organization | | | | + + + + + | [facility] | [address] [place] [address] | [place] [address] | [phone] | | LABORATORY | [place] | | | + + + + [...] >60Comment: GFR <60: | >60 mL/min/1.73m2 | [facility] | | | CHRONIC KIDNEY DISEASE, | [...] the | | | | | MDRD IDDC traceable | | | | | equation. PLEASE NOTE | | | | | NEW CALCULATION | | | | | EFFECTIVE 12/18/2017 | | | | | Testing performed at | | | | | [facility], [address] | | | | | [place], | | | | | [place] [address] | | | + + + + + + + | Specimen | + + | Blood | + + + + + + + | Performing | Address | City/State/Zipcode | Phone Number | | Organization | | | | + + + + + | [facility] | [address] | [place] [address] | [phone] | | LABORATORY | Blvd. | | [...] contrast. A 3D noncontrast | | | xlld-qh-bbjhdy MRA sequence was acquired through the | [...] - 01/08/2018 9:57 PM PDT [facility] | | HEAD01/08/2018 9:16 PMHISTORY:57 years. Male. Acute left-sided weakness. Acute embolic | | stroke.TECHNIQUE:Imaging was performed on a 1.5 Mayra MRI system. Multiplanar | | sequences were acquired according to a standard department protocol without contrast. | | A 3D noncontrast djto-aq-iszzah MRA sequence was acquired through the head. [...] | + + + + + | [facility] | [address] | [place] [address] | | + + + + + CT Head Non-Contrast (01/08/2018 1:27 PM) + + + | Impressions | Performed At | + + + | 1. Brain is negative for acute pathology. Electronically | [facility] | | signed by Ranjit Estrella MD [...] + ---------+ | Layton, Rad Results In 01/08/2018 1:33 PM PDT ERIS Malave RICHELLE [...] | + + + + + | [facility] | [address] | [place] [address] | | + + + + + [...] | + + + + + | [facility] | [address] | [place] [address] | | + + + + + Cardiac Panel (01/08/2018 12:45 PM) + + + + + | Component | Value | Ref Range | Performed At | + + + + + | WBC | 14.08 (H) | 3.80 - 11.00 K/uL | [facility] | + + + + + | RBC | 5.35 | 4.20 - 5.70 M/uL | [facility] | + + + + + | HGB | 17.0 | 13.2 - 17.0 g/dL | [facility] | + + + + + | HCT | 49.5 | 39.0 - 50.0 % | [facility] | + + + + + | MCV | 92.6 | 80.0 - 100.0 fl | [facility] | + + + + + | MCH | 31.8 | 27.0 - 34.0 pg | [facility] | + + + + + | MCHC | 34.3 | 32.0 - 35.5 g/dL | [facility] | + + + + + | RDW SD | 46.8 | 37 - 53 fl | [facility] | + + + + + | PLT | 210 | 150 - 400 K/uL | [facility] | + + [...] 3.6 | 3.5 - 4.9 mmol/L | [facility] | + + + + + | CHLORIDE | 108 | 99 - 109 mmol/L | [facility] | + + + + + | CO2 | 25 | 23 - 32 mmol/L | [facility] | + + + + + | ANION GAP AGAP | 16 | 5 - 20 mmol/L | [facility] | + + + + + | GLUCOSE | 98 | 65 - 99 mg/dL | [facility] | + + + + + | BUN | 10 | 8 - 25 mg/dL | [facility] | + + [...] 7.5 | 6.3 - 8.2 g/dL | [facility] | + + + + + | Albumin | 3.8 | 3.6 - 5.0 g/dL | [facility] | + + + [...] 96 | 35 - 115 U/L | [facility] | + + + + + | AST | 14 | 10 - 45 U/L | [facility] | + + + + + | ALT | 24 | 10 - 65 U/L | [facility] | + + + + + | EGFR | >60Comment: GFR <60: | >60 mL/min/1.73m2 | [facility] | | | CHRONIC KIDNEY DISEASE, [...] the | | | | | MDRD [facility] traceable | | | | | equation. PLEASE NOTE | | | | | NEW CALCULATION | | | | | EFFECTIVE 12/18/2017 | | | + + + + + | CPK | 52 (L) | 55 - 400 U/L | [facility] | + + + + + | INR | 0.9Comment: REFERENCE | | [facility] | | | RANGE:0.9 - | [...] 27 | 23 - 32 seconds | [facility] | + + + + + | MMB | 0.9 | 0.5 - 3.6 ng/mL | [facility] | + + + + + | CK-MB Index | 1.7Comment: CK INDEX | | [facility] | | | INTERPRETATION: | | [...] | | | | | performed at [facility], [address] | | | | [address] [place], | | | | | [place] [address] | | | + + + + + + + + + + | Performing | Address | City/State/Zipcode | Phone Number | | Organization | | | | + + + + + | [facility] | [address] | [place] [address] | | + + + + + Troponin I (01/08/2018 12:45 PM) + + + + + | Component | Value | Ref Range | Performed At | + + + + + | TROPONIN I | <0.04Comment: 0.00 to | 0.00 - 0.10 ng/mL | [facility] | | | 0.10 CONSISTENT WITH | | | | | NORMAL POPULATION0.11 | | | | | to 0.60 CONSISTENT | | | | | WITH INCREASED RISK FOR | | | | | ADVERSE OUTCOMES> | | | | | 0.60 | | | | | CONSISTENT WITH WHO | | | | | CRITERIA FOR ACUTE DC | | | | | Testing performed at | | | | | [facility], [address], | | | | | [place] [address] | | | + + + + + + + | Specimen | + + | Blood | + + + + + + + | Performing | Address | City/State/Zipcode | Phone Number | | Organization | | | | + + + + + | [facility] | [address] | [place] [address] | | + + + + + EKG 12 LEAD UNIT PERFORMED (01/08/2018 12:40 PM) + + + + + | Component | Value | Ref Range | Performed At | + + + + + | Ventricular Rate | 86 | BPM | [facility] | + + + + + | Atrial Rate | 86 | BPM | [facility] [...] + + + + | Calculated P [place] | 34 | degrees | [facility] | + + + + + | Calculated R [place] | -31 | degrees | [facility] | + + + + + | Calculated T [place] | 32 | degrees | [facility] | + + + + + | Diagnosis | Normal sinus rhythmLeft | | [facility] | | | axis deviationInferior | [...] | | | | | ONLY, -COMPUTER (228), | | | | | editor continuity and script Nguyễn Garcia | | | | | Kleber (123) on 01/09/2018 | | | | | 1:16:57 AM | | | + + + + + + + + + + | Performing | Address | City/State/Zipcode | Phone Number | | Organization | | | | + + + + + | [facility] | [address] 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
--- OUTSIDE RECORDS SUMMARY | ~2018-04-03 | XMS | Encounter Summary ---
Demographics + + + | Address | [address] | | | [place] [address] | + + + | Home Phone | | + + + | Preferred Language | Unknown | + + + | Marital Status | Single | + + + | Jainism Affiliation | 1013 | + + + | Race | Unknown | + + + | Ethnic Group | Unknown | + + + Author + + + | Author | [facility] | + + + | Organization | [facility] | + + + | Address | Unknown | + + + | Phone | Unavailable | + + + Support + + +---------+ + | Name | Relationship | Address | Phone | + + +---------+ + | Lety Ho | ECON | Unknown | | + + +---------+ + Care Team Providers + +------+ + | Care Air Crew Officer Name | Role | Phone | + +------+ + | Jude Kevin | PCP | | + +------+ + Encounter Details +--------+ + + + + | Date | Type | Department | Care Team | Description | +--------+ + + + + | 01/08/ | Procedure | [facility] | | | | 2018 | Pass | [address] | | | | | | Floor [facility] | | | | | | [address] [facility] [facility] | | | | | | [place] [address] | | | | | | [phone] | | | +--------+ + + + [...] | | | | | | [place] [address] | | | | | | [phone] | | | | | | | | +--------+---------+ + + + as of this encounter Visit Diagnoses Not on filein this encounter"
--- OUTSIDE RECORDS SUMMARY | ~2018-04-03 | XMS | Clinical Summary ---
Demographics + + + | Address | [address] | | | [place] [address] | + + + | Home Phone | | + + + | Preferred Language | Unknown | + + + | Marital Status | | + + + | Muslim Affiliation | 1013 | + + + | Race | Unknown | + + + | Ethnic Group | Unknown | + + + Author + + + | Author | [facility] | | | and [place] | + + + | Organization | [facility] | | | and [place] | + + + | Address | Unknown | + + + | Phone | Unavailable | + + + Support + + + + + | Name | Relationship | Address | Phone | + + + + + | Karol Peoples | ECON | [place] | | | | | [address] | | + + + + + Care Team Providers + +------+ + | Care Tag Machine Operator Name | Role | Phone | + +------+ + | Jude eKvin NP | PP | | + +------+ + Allergies + + + + + + | Active Allergy | Reactions | Severity | Noted | Comments | | | | | Date | | + + + + + + | Atorvastatin | Other (See Comments) | | 03/26/20 | Pain in shoulders | | | | | 18 | and arms | + + + + + + | Hydrocodone | Nausea And Vomiting, | High | 05/25/20 | | | | Hives | | 17 | | + + + + + + | Penicillins | Anaphylaxis, Hives, | High | 05/25/20 | | | | Shortness Of Breath, | | 17 | | | | Swelling | | | | + + + [...] | Activ | | (GLUCOPHAGE-XR) 500 | 2 times daily. | | | | | e | | mg 24 hr tablet | | | | | [...] | | | + + +--------+---------+------+------+-------+ | | Take 1 tablet by | | | | | Activ | | lisinopril-hydrochlo | mouth Daily. | | | | | e | | rothiazide | | | | | | | | (PRINZIDE,ZESTORETIC | | | | | | | | ) 20-25 MG per | | | | | | | | tablet | | | | | | | + + +--------+---------+------+------+-------+ Active Problems + + + | Problem | Noted Date | + + + | Acute MT (HCC) | 07/02/2017 | + + + Encounters +--------+ + + + + | Date | Type | Specialty | Care Team | Description | +--------+ + + + + | 03/26/ | Abstract | | Juan Manuel Khanna, | | | 2017 | | | | | +--------+ + + + + | 03/15/ | Ancillary | | Vito, | | | 2017 | Orders | | MD Ericka | | +--------+ + + + + | 03/15/ | Procedure | | | | | 2018 | Pass | | | | +--------+ + + + + | 02/02/ | Imaging | | Provider, | | | 2017 | Exam | | Ericka, | | +--------+ + + + + | 01/09/ | Imaging | | Provider, | | | 2017 | Exam | | MD Ericka | | +--------+ + + + + | 01/09/ | Imaging | | Provider, | | | 2017 | Exam | | MD Ericka | | +--------+ + + + + | 01/08/ | Imaging | | Provider, | | | 2018 | Exam | | MD Ericka | | +--------+ + + + + | 01/08/ | Imaging | | Provider, | | | 2017 | Exam | | MD Ericka | | +--------+ + + + + | 01/08/ | Imaging | | Provider, | | | 2018 | Exam | | Historical, MD | | +--------+ + + + + from Last 3 Months Family History + + +------+ + | Medical History | Relation | Name | Comments | + + +------+ + | No Known Problems | Father | | | + + +------+ + | No Known Problems | Mother | | | + + +------+ + | Cancer | Other | | | + + +------+ + | Diabetes | Other | | | + + +------+ + + +------+ + + | Relation | Name | Status | Comments | + +------+ + + | Father | | | | + +------+ + + | Mother | | | | + +------+ + + | Other | | | | + +------+ + [...] + | Blood Pressure | 106/64 | 07/03/20171001 PST | + + + + | Pulse | 60 | 07/03/20171001 PST | + + + + | Temperature | 36.9 C (98.4 F) | 05/27/2017721 PST | + + + + | Respiratory Rate | 14 | 07/03/20171001 PST | + + + + | Oxygen Saturation | 92% | 05/27/2017721 PST | + + + + | [...] | Body Mass Index | 33.86 | 07/03/2017 1002 PST | + + + + Plan of Treatment +--------+---------+ + + + | Date | Type | Specialty | Care Team | Description | +--------+---------+ + + + | 04/04/ | Office | | Juan Manuel Khanna, | | | 2018 | Visit | | MD Muller [facility] | | | | | | [place] | | | | | | [address] | | | | | | | [...] + + | Colorectal Cancer | | 07/23/2007 | | | Screening | 8 | | | | (Colonoscopy) | | [...] Heart | SCIENTIFIC | | 2016 | /97179 | | SystemImplanted: Qty: 1 on | [...] Heart | SCIENTIFIC | | 2017 | / | | SystemImplanted: Qty: 1 on | | | ALONZO - BSCI | | | 602 | | 05/25/2017 by Jhonatan Evans, | | | | | | | | MD | | | | | | | + +-------+-------+ +--------+--------+--------+ Procedures + +--------+ + + + | Procedure Name | Priori | Date/Time | Associated Diagnosis | Comments | | | ty | | | | + +--------+ + + + | CT HEAD WO CONTRAST | Routin | 02/02/2018 | | Results for this | | | e | 0935 PDT | | procedure are in the | | | | | | results section. | + +--------+ + + + | ECHO COMPLETE | Routin | 01/09/2018 | | Results for this | | | e | 1045 PDT | | procedure are in the | | | | | | results section. | + +--------+ + + + | VAS CAROTID DUPLEX | Routin | 01/09/2018 | | Results for this | | BILATERAL | e | 0520 PDT | | procedure are in the | | | | | | results section. | + +--------+ + + + | MRI BRAIN WO | Routin | 01/08/2018 | | Results for this | | CONTRAST | e | 2040 PDT | | procedure are in the [...] + + from Last [address] Head wo Contrast (02/02/2018 0935)Only the most recent of 2 results within the time thom od is included. + + + | Narrative | Performed [...] | + +---------+ + + ECHO Complete (01/09/20181044) + + + | Narrative | Performed [...] +---------+ + + MRI Brain wo Contrast (01/08/20180) + + + | Narrative | [...] | | | + +---------+ + + from Last 3 Months Insurance + +--------+ +--------+ +---------+ | Payer | Benefi | Subscriber | Type | Phone | Address | | | t Plan | ID | | | | | | / | | | | | | | Group | | | | | + +--------+ +--------+ +---------+ | [employer] | MODA | [id number] | Medica | [phone] | | MEDICAID HMO | HEALTH [...] | 1961 | [phone] | [place] [address] | | | jeremy | | | [phone] | | + +--------+ +--------+ + +
--- OUTSIDE RECORDS SUMMARY | ~2018-04-03 | XMS | Encounter Summary ---
Demographics + + + | Address | [address] | | | [place] [address] | + + + | Home Phone | | + + + | Preferred Language | Unknown | + + + | Marital Status | | + + + | Spiritism Affiliation | 1013 | + + + | Race | Unknown | + + + | Ethnic Group | Unknown | + + + Author + + + | Author | [facility] | | | and [place] | + + + | Organization | [facility] | | | and [place] | + + + | Address | Unknown | + + + | Phone | Unavailable | + + + Support + + + + + | Name | Relationship | Address | Phone | + + + + + | Karol Ho | ECON | [place] | | | | | [address] | | + + + + + Care Team Providers + +------+ + | Care Animal Anatomy Teacher Name | Role | Phone | + +------+ + | Jude Kevin NP | PCP | | + +------+ + Encounter Details +--------+ + + + + | Date | Type | Department | Care Team | Description | +--------+ + + + + | 03/15/ | Procedure | [facility] | | | | 2017 | Pass | [facility] | | | | | | IMAGING | | | | | | [phone] | | | +--------+ + + + [...] | 2017 | Visit | | MD Renzo SULLIVAN | | | | | | [place] | | | | | | [address] | | | | | | | | +--------+---------+ + + + as of this encounter Visit Diagnoses Not on filein this encounter"
--- OUTSIDE RECORDS SUMMARY | ~2018-04-03 | XMS | Encounter Summary ---
Demographics + + + | Address | [address] | | | [place] [address] | + + + | Home Phone | | + + + | Preferred Language | Unknown | + + + | Marital Status | Single | + + + | Pentecostal Affiliation | 1013 | + + + | Race | Unknown | + + + | Ethnic Group | Unknown | + + + Author + + + | Author | [facility] | + + + | Organization | [facility] | + + + | Address | Unknown | + + + | Phone | Unavailable | + + + Support + + +---------+ + | Name | Relationship | Address | Phone | + + +---------+ + | Lety Ho | ECON | Unknown | | + + +---------+ + Care Team Providers + +------+ + | Care Rn Otolaryngology Name | Role | Phone | + +------+ + | Jude Kevin | PCP | | + +------+ + Reason for Visit +--------+ + | Reason | Comments | +--------+ + | Other | [facility] | +--------+ + Encounter Details +--------+ + + + + | Date | Type | Department | Care Team | Description | +--------+ + + + + | 03/29/ | Documentati | ASTRID Davison | Lalitha Pandey MA | Other ([facility] | | 2018 | on Only | Chalo Fraser | | Tiffanie) | | | | [address] | | | | | | [place] | | | | | | [address] | | | | | | [phone] | | | +--------+ + + + [...] | | + +---+---+---+ + + | Comments: vape pen | + + [...] Chris Schneider, | | | 2018 | Visit | | MD [address] | | | | | | [place], | | | | | | [place] [address] | | | | | | [phone] | | | | | | | | +--------+---------+ + + + as of this encounter Visit Diagnoses Not on filein this encounter"
--- OUTSIDE RECORDS SUMMARY | ~2018-04-03 | XMS | Clinical Summary ---
Demographics + + + | Address | [address] | | | [place] [address] | + + + | Home Phone | | + + + | Preferred Language | Unknown | + + + | Marital Status | Single | + + + | Samaritan Affiliation | 1013 | + + + | Race | Unknown | + + + | Ethnic Group | Unknown | + + + Author + + + | Author | [facility] | + + + | Organization | [facility] | + + + | Address | Unknown | + + + | Phone | Unavailable | + + + Support + + +---------+ + | Name | Relationship | Address | Phone | + + +---------+ + | Lety Peoples | ECON | Unknown | | + + +---------+ + Care Team Providers + +------+ + | Care Wired Music Operator Name | Role | Phone | [...] + + + + | Overview: Inferior ME | + + + + + | [...] | Overview: Primary PCI for acute inferior ME, 2 Promus GERALD | | (2.5x20 & [...] + + | Acute cerebrovascular accident (CVA) ([facility]) | 01/09/20 | | | [...] | | | | | | involving [place] | | | | | | coronary artery of | | | | | | [place] heart without | | | | | [...] | | | MRN: | | | [id number] | | | te of | | [...] | | recently | | | and ME was | | | ruled out | [...] | | | [place], | | | [id number] | | | [place] | | | [address] | | | n [place] | | | [phone] | | | [phone] | | | [...] | | | | | | [place] [address] | | | | | | [phone] | | | | | | | [...] Ventricular Rate | 69 | BPM | [facility] | + + + + + [...] + + + + | Calculated P [place] | 31 | degrees | [facility] | + + + + + | Calculated R [place] | -14 | degrees | [facility] | + + + + + | Calculated T [place] | 7 | degrees | [facility] | + + + + + | Diagnosis | Normal sinus | | [facility] | | | rhythmInferior infarct | [...] | | | | | by [facility] [place] Read Only, | | | | | [facility] [place] ([id number]), | | | | | state editor [place] Lang | | | | | ([id number]) on 03/19/2018 | | | | | 2:14:21 PM | | | + + + + + + + + + + | Performing | Address | City/State/Zipcode | Phone Number | | Organization | | | | + + + + + | [facility] | [address] | [place] [address] | | + + + + + [...] | | | | | [place] [address] | | | + + + + + + + + + + | Performing | Address | City/State/Zipcode | Phone Number | | Organization | | | | + + + + + | [facility] | [address] | [place] [address] | [phone] | | LABORATORY | [address]vd[address] | | [...] + + + + + | Specific [place], UA | 1.006 | 1.002 - 1.030 [...] PROTEIN | NEGATIVE | NEGATIVE mg/dL | [facility] | | | | | LABORATORY | + + + + + | PH,URINE | 6.0 | 5.0 - 8.0 | [facility] | | | | | LABORATORY | [...] | [facility] | | | performed at [facility], [address] | | LABORATORY | | | [address], | | | | | [place] [address] | | | + + + + + + + | Specimen | + + | Urine - Urine, Clean | | Catch | + + + + + + + | Performing | Address | City/State/Zipcode | Phone Number | | Organization | | | | + + + + + | [facility] | [address] | [place] [address] | [phone] | | LABORATORY | Blvd. | | [...] TV A Asaf: 0.40 m/s TV Dec Baker: 1.66 | | | m/s2 TV Dec Time: 333.82 ms TV E Asaf: 0.55 m/s TV E/A | | | Ratio: 1.38 Tool Grinder Set Up Operator Gear: EVANGELINA Authenticated by: Ana | | | Divya BA Report Date/Time: 01-09-2018 19:9:14 | | + + + + ---------+ | Procedure Note | + ---------+ | Layton, Rad Results In - 01/09/2018 7:09 PM PDT Patient Name: Luiz PEOPLES of | | : 1960Accession: [id number] Physician: Ana Stokes MD | | INDICATIONS [...] (A-L): | | 14.79 ml/m2LAAs A2C: 13.39 [id number] A-L A2C: 31.09 mlLALs A2C: 4.89 cmLAAs A4C: | | 11.87 [id number] A-L A4C: 28.45 mlLALs A4C: 4.20 cmAo Diam: 3.27 cmAV Cusp: 2.20 | | cmLA Diam: 3.69 cmLA/Ao: 1.12 TAPSE: 2.53 cmIVC diameter: 2.00 cmIVC collapse: | | 0.89 cmIVC % collapse: 53.55 %AV maxP.23 mmHgAV meanP.94 mmHgAV Vmax: | | 1.14 m/Mukul Vmean: 0.80 m/Mukul VTI: 27.23 cmAVA Vmax: 3.45 cm2AVA (VTI): 3.20 | | [id number] Vmax: 0.00 cm2/m2AVAI (VTI): 0.00 cm2/m2LVOT maxP.67 [...] A Asaf: | | 0.40 m/sTV Dec Baker: 1.66 m/s2TV Dec Time: 333.82 msTV E Asaf: 0.55 m/sTV E/A | | Ratio: 1.38 Tool Grinder Set Up Operator Gear: KVWAuthenticated by: Ana Stokes MDReport Date/Time: | [...] A Asaf: 0.40 m/s | |TV Dec Baker: 1.66 m/s2 | |TV Dec Time: 333.82 ms | |TV E Asaf: 0.55 m/s | |TV E/A Ratio: 1.38 | | | |Tool Grinder Set Up Operator Gear: KVW | |Authenticated by: Ana Stokes MD [...] + + + + + | [facility] | [address] | [place] [address] | | + + + + + [...] Jan 09 2018 6:42AM Referring Provider Line: [phone] ID: | | | [id number] | | + + + + + + | Narrative | Performed At | + + + | EXAM: CAROTID DOPPLER ULTRASOUND EXAM DATE: 01/09/2018 06:04 AM. | [facility] | | CLINICAL HISTORY: Acute left-sided weakness. Stroke. | RADIOLOGY | | COMPARISON: None. TECHNIQUE: Real-time sonographic vascular | | | imaging was performed by the planning intern through the carotid arterial | | | system with a linear transducer utilizing color-flow, Doppler flow and | | | spectral analysis. Multiple charter representative static images were saved | | [...] sonographic vascular imaging was performed by the planning intern | | through the carotid arterial system with a linear transducer utilizing color-flow, | | Doppler flow and spectral analysis. Multiple charter representative static images were saved for | [...] Jan 09 2018 6:42AM Referring Provider Line: [phone] ID: [id number] | |Vertebral Mid: PSV 45 [...] 09 2018 6:42AM Referring Provider Line: [phone] ID: [id number] | + + + + + + + | Performing | Address | City/State/Zipcode | Phone Number | | Organization | | | | + + + + + | [facility] | [address] | [place] [address] | | + + + + + [...] | | | | | [place] [address] | | | + + + + + + + | Specimen | + + | Blood | + + + + + + + | Performing | Address | City/State/Zipcode | Phone Number | | Organization | | | | + + + + + | [facility] | [address] | [place] [address] | [phone] | | LABORATORY | Blvd. | | | + + + + + Magnesium (01/09/2018 4:57 AM) + + + + + | Component | Value | Ref Range | Performed At | + + + + + | MAGNESIUM | 1.8Comment: Testing | 1.7 - 2.4 mg/dL | [facility] | | | performed at [facility], [address] | | LABORATORY | | | [address], | | | | | [place] [address] | | | + + + + + + + | Specimen | + + | Blood | + + + + + + + | Performing | Address | City/State/Zipcode | Phone Number | | Organization | | | | + + + + + | [facility] | [address] | [place] [address] | [phone] | | LABORATORY | [address]vd[address] | | | + + + + + Glycohemoglobin A1c (01/09/2018 4:57 AM) + + + + + | Component | Value | Ref Range | Performed At | + + + + + | HEMOGLOBIN A1C | 6.1 (H)Comment: The | 4.0 - 6.0 % | [facility] | | | [facility] | | LABORATORY | | | [...] | | | | | performed at [facility], [address] | | | | | [address] [place], | | | | | [place] [address] | | | + + + + + + + | Specimen | + + | Blood | + + + + + + + | Performing | Address | City/State/Zipcode | Phone Number | | Organization | | | | + + + + + | [facility] | [address] | [place] [address] | [phone] | | LABORATORY | [address] | | [...] | [facility] | | | performed at [facility], [address] | | LABORATORY | | | [address], | | | | | [place] [address] | | | + + + + + + + | Specimen | + + | Blood | + + + + + + + | Performing | Address | City/State/Zipcode | Phone Number | | Organization | | | | + + + + + | [facility] | [address] [place] [address] | [place] [address] | [phone] | | LABORATORY | [address] | | [...] >60Comment: GFR <60: | >60 mL/min/1.73m2 | [facility] | | | CHRONIC KIDNEY DISEASE, | [...] the | | | | | MDRD IDNM traceable | | | | | equation. PLEASE NOTE | | | | | NEW CALCULATION | | | | | EFFECTIVE 12/18/2017 | | | | | Testing performed at | | | | | [facility], [address] | | | | | [place], | | | | | [place] [address] | | | + + + + + + + | Specimen | + + | Blood | + + + + + + + | Performing | Address | City/State/Zipcode | Phone Number | | Organization | | | | + + + + + | [facility] | [address] | [place] [address] | [phone] | | LABORATORY | Blvd. | | [...] contrast. A 3D noncontrast | | | rvwf-jf-jowuky MRA sequence was acquired through the | [...] - 01/08/2018 9:57 PM PDT [facility] | | HEAD01/08/2018 9:16 PMHISTORY:57 years. Male. Acute left-sided weakness. Acute embolic | | stroke.TECHNIQUE:Imaging was performed on a 1.5 Mayra MRI system. Multiplanar | | sequences were acquired according to a standard department protocol without contrast. | | A 3D noncontrast atjp-my-rlbhzj MRA sequence was acquired through the head. [...] + + + + + | [facility] | [address] | [place] [address] | | + + + + + [...] + + + + + | [facility] | [address] | [place] [address] | | + + + + + [...] + + + + + | [facility] | [address] | [place] [address] | | + + + + + Cardiac Panel (01/08/2018 12:45 PM) + + + + + | Component | Value | Ref Range | Performed At | + + + + + | WBC | 14.08 (H) | 3.80 - 11.00 K/uL | [facility] | + + + + + | RBC | 5.35 | 4.20 - 5.70 M/uL | [facility] | + + + + + | HGB | 17.0 | 13.2 - 17.0 g/dL | [facility] | + + + + + [...] 24 | 10 - 65 U/L | [facility] | + + + + + | EGFR | >60Comment: GFR <60: | >60 mL/min/1.73m2 | [facility] | | | CHRONIC [...] the | | | | | MDRD [facility] traceable | | | | | equation. PLEASE NOTE | | | | | NEW CALCULATION | | | | | EFFECTIVE 12/18/2017 | | | + + + + + | CPK | 52 (L) | 55 - 400 U/L | [facility] | + + + + + | INR | 0.9Comment: REFERENCE | | [facility] | | | RANGE:0.9 [...] 27 | 23 - 32 seconds | [facility] | + + + + + | MMB | 0.9 | 0.5 - 3.6 ng/mL | [facility] | + + + + + | CK-MB Index | 1.7Comment: CK INDEX | | [facility] | | | INTERPRETATION: [...] | | | | | performed at [facility], [address] | | | | [address] [place], | | | | | [place] [address] | | | + + + + + + + + + + | Performing | Address | City/State/Zipcode | Phone Number | | Organization | | | | + + + + + | [facility] | [address] | [place] [address] | | + + + + + Troponin I (01/08/2018 12:45 PM) + + + + + | Component | Value | Ref Range | Performed At | + + + + + | TROPONIN I | <0.04Comment: 0.00 to | 0.00 - 0.10 ng/mL | [facility] | | | 0.10 CONSISTENT WITH | | | | | NORMAL POPULATION0.11 | | | | | to 0.60 CONSISTENT | | | | | WITH INCREASED RISK FOR | | | | | ADVERSE OUTCOMES> | | | | | 0.60 | | | | | CONSISTENT WITH WHO | | | | | CRITERIA FOR ACUTE ME | | | | | Testing performed at | | | | | [facility], [address], | | | | | [place] [address] | | | + + + + + + + | Specimen | + + | Blood | + + + + + + + | Performing | Address | City/State/Zipcode | Phone Number | | Organization | | | | + + + + + | [facility] | [address] | [place] [address] | | + + + + + [...] + + + + | Calculated P [place] | 34 | degrees | [facility] | + + + + + | Calculated R [place] | -31 | degrees | [facility] | + + + + + | Calculated T [place] | 32 | degrees | [facility] | + + + + + | Diagnosis | Normal sinus rhythmLeft | | [facility] | | | axis [...] | | | | | ONLY, -COMPUTER ([id number]), | | | | | state editor Nguyễn Garcia | | | | | Kleber (123) on 01/09/2018 | | | | | 1:16:57 AM | | | + + + + + + + + + + | Performing | Address | City/State/Zipcode | Phone Number | | Organization | | | | + + + + + | [facility] | [address] 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
--- OUTSIDE RECORDS SUMMARY | ~2018-04-03 | XMS | Encounter Summary ---
Demographics + + + | Address | [address] | | | [place] [address] | + + + | Home Phone | | + + + | Preferred Language | Unknown | + + + | Marital Status | | + + + | Gnosticism Affiliation | 1013 | + + + | Race | Unknown | + + + | Ethnic Group | Unknown | + + + Author + + + | Author | [facility] | | | and [place] | + + + | Organization | [facility] | | | and [place] | + + + | Address | Unknown | + + + | Phone | Unavailable | + + + Support + + + + + | Name | Relationship | Address | Phone | + + + + + | Karol Ho | ECON | [place] | | | | | [address] | | + + + + + Care Team Providers + +------+ + | Care City Weighmaster Name | Role | Phone | + [...] [place] | | | | | [phone] | [place] [address] | | +--------+ + + + + [...] 2017 | Visit | | MD Mull[facility] | | | | | | [place] | | | | | | [address] | | | | | | | [...] + + + in this encounter Results VAS Carotid Duplex Bilateral (01/09/2018 0520) + + + | Narrative | Performed [...]
--- OUTSIDE RECORDS SUMMARY | ~2018-04-03 | XMS | Encounter Summary ---
Demographics + + + | Address | [address] | | | [place] [address] | + + + | Home Phone | | + + + | Preferred Language | Unknown | + + + | Marital Status | | + + + | Nondenominational Affiliation | 1013 | + + + | Race | Unknown | + + + | Ethnic Group | Unknown | + + + Author + + + | Author | [facility] | | | and [place] | + + + | Organization | [facility] | | | and [place] | + + + | Address | Unknown | + + + | Phone | Unavailable | + + + Support + + + + + | Name | Relationship | Address | Phone | + + + + + | Karol Ho | ECON | [place] | | | | | [address] | | + + + + + Care Team Providers + +------+ + | Care Manager Beverage Name | Role | Phone | + +------+ + | Jude Kevin NP | PCP | | + +------+ + Encounter Details +--------+ + + + + | Date | Type | Department | Care Team | Description | +--------+ + + + + | 02/02/ | Imaging | [facility] | Provider, | | | 2018 | Exam | [facility] | MD [address] | | | | | IMAGING | [address] | | | | | [phone] | [place] [id number] | | +--------+ + + + + [...] 2017 | Visit | | [facility] | | | | | | [place] | | | | | | [phone] | | | | | | | [...]
--- OUTSIDE RECORDS SUMMARY | ~2018-04-03 | XMS | Clinical Summary ---
Demographics + + + | Address | [address] | | | [place] [address] | + + + | Home Phone | | + + + | Preferred Language | Unknown | + + + | Marital Status | | + + + | Restorationist Affiliation | 1013 | + + + | Race | Unknown | + + + | Ethnic Group | Unknown | + + + Author + + + | Author | [facility] | | | and [place] | + + + | Organization | [facility] | | | and Eduardo[place] | + + + | Address | Unknown | + + + | Phone | Unavailable | + + + Support + + + + + | Name | Relationship | Address | Phone | + + + + + | Karol Peoples | ECON | [place] | | | | | [address] | | + + + + + Care Team Providers + +------+ + | Care Activities Counselor Name | Role | Phone | + [...] Date | + + + | Acute DC (HCC) | 07/02/2017 | + + + [...] 2018 | Visit | | MD Muller [facility] | | | | | | [place] | | | | | | [address] | | | | | | | [...] Heart | SCIENTIFIC | | 2016 | /[id number] | | SystemImplanted: Qty: 1 on | [...] | [employer] | MODA | [id number] | Medica | [phone] | | [...] | 1961 | [phone] | [place] [address] | | | jeremy | | | [phone] | | + +--------+ +--------+ + +
--- OUTSIDE RECORDS SUMMARY | ~2018-04-03 | XMS | Encounter Summary ---
Demographics + + + | Address | [address] | | | [place] [address] | + + + | Home Phone [...] + + + | Author | [facility] | + + + | Organization | [employer] | + + + | Address | Unknown | + + + | Phone | Unavailable | + + + Support + + +---------+ + | Name | Relationship | Address | Phone | + + +---------+ + | Lety Ho | ECON | Unknown | | + + +---------+ + Care Team Providers + +------+ + | Care Foundry Worker General Name | Role | Phone | + [...] [place] | | | | | | [address] | | | | | | [phone] | | | +--------+ + + + [...] 2018 | Visit | | MD [address] | | | | | | [place], | | | | | | [place] [address] | | | | | | [phone] | | | | | | | | +--------+---------+ + + + as of this encounter Visit Diagnoses Not on filein this encounter"
--- OUTSIDE RECORDS SUMMARY | ~2018-04-03 | XMS | Encounter Summary ---
Demographics + + + | Address | [address] | | | [place] [address] | + + + | Home Phone | | + + + | Preferred Language | Unknown | + + + | Marital Status | | + + + | Caodaism Affiliation | 1013 | + + + | Race | Unknown | + + + | Ethnic Group | Unknown | + + + Author + + + | Author | [facility] | | | and [place]ardo[place] | + + + | Organization | [facility] | | | and Eduardo[place] | + + + | Address | Unknown | + + + | Phone | Unavailable | + + + Support + + + + + | Name | Relationship | Address | Phone | + + + + + | Karol Ho | ECON | [place] | | | | | [address] | | + + + + + Care Team Providers + +------+ + | Care Referral Nurse Name | Role | Phone | + [...] IMAGING | | | | | | [phone] | | | +--------+ + + + [...] [place] | | | | | | [address] | | | | | | | | +--------+---------+ + + + as of this encounter Visit Diagnoses Not on filein this encounter"
--- OUTSIDE RECORDS SUMMARY | ~2018-04-03 | XMS | Encounter Summary ---
Demographics + + + | Address | [address] | | | [place] [address] | + + + | Home Phone | | + + + | Preferred Language | Unknown | + + + | Marital Status | Single | + + + | Rastafarian Affiliation | 1013 | + + + | Race | Unknown | + + + | Ethnic Group | Unknown | + + + Author + + + | Author | [facility] [employer] [facility] | + + + | Organization | [facility] | + + + | Address | Unknown | + + + | Phone | Unavailable | + + + Support + + +---------+ + | Name | Relationship | Address | Phone | + + +---------+ + | Lety Peoples | ECON | Unknown | | + + +---------+ + Care Team Providers + +------+ + | Care Professor Of Forest Planning Name | Role | Phone | + +------+ + | Jude Kevin | PCP | | + +------+ + Reason for Visit + + + | Reason | Comments | + + + | Chest Pain | radiates to left arm heaviness intermittent since sunday and | | | worked up on sunday in [facility]. everything negative and sent | | | [...] | | Internal | Diagnoses | | [facility] 7th | | | | Medicine | Acute | | [address] [place] | | | | | left-sided | | [address] | | | | | weakness | | [address] | | | | | Acute | | [place], [place] | | | | | embolic | | [address] Phone: | | | | | stroke ([facility]) | | [phone] | | | | | | | | +--------+--------+ + + + + Encounter Details +--------+ + + + + | Date | Type | Department | Care Team | Description | +--------+ + + + + | 01/08/ | Hospital | [facility] | Estefania Garcia, | Acute left-sided | | 2018 - | Encounter | [address] | MD José MURCIA | weakness (Primary | | | | [facility] EMERGENCY DEPARTMENT | Dx); Acute embolic | | 01/09/ | | [address] | [place] [address] | stroke (HCC) | | 2017 | | [place] [address] | [phone] | | | | | [phone] | | | | | | | Tommy Seaz DO [address] | | | [address] | | | | | | [place], [place] | | | | | | [address] | | | | | | [phone] | | | | | | | | | | | | Jamie Castro MD | | | | | | [address] | | | | | | [place] [address] | | | | | | [phone] | | | | | | | [...] + + in this encounter Discharge Summaries Jaime Castro MD - 01/09/2018 2:13 PM PDTFormatting [...] since sunday and worked up on in [facility]. everything negative and sent home); Headache; and Extremity Weakness (left arm since sunday, increasing weakness) Hospital Course: Eris Peoples is a 57 y.o. male with htn, CAD with stents, hld who was admitted on 2017 with complaints of slurred speech and left sided weakness. Apparently the symptoms had began about 3 days ago. He also was seen in [place] for chest pain recently and [place] was rul ed out and patient sent [...] Jan 09 2018 6:42AM Referring Provider Line: [phone] ID: [id number] Mri Brain Without Contrast And [...] Discharge Information: Follow up: YUNIEL Hollingsworth [address] [facility] [place] [address] Schedule an appointment as soon as possible [...] the symptoms first appeared. Date Last Reviewed: 01/20/201719997999-09[address] [employer] [place], [place] [address]. All righ ts reserved. This information is [...] quit within a month, and do it. [place] to your quit plan Talk to your [...] Track your triggers What gives you that E-vnnp-v-cigarette feeling? List all the situations that make [...] wants to stop smoking. Date Last Reviewed: 01/21/201619992612-30[address] [employer] [place] [address]. All righ ts reserved. This information is [...] was encouraged to go in to the [facility] and apply for breonna care. They [...] breonna care Assistance in transportation: , Karol [phone] can transport when ready. Identification of any [...] | | | | | | [place] [address] | | | | | | [phone] | | | | | | | [...] | + +--------+ + + + | TabTale CARD PANEL W/O | STAT | 01/08/2018 [...] | [facility] | | | performed at [facility], [address] | | LABORATORY | | | [place], | | | | | [place] [address] | | | + + + + + + + + + + | Performing | Address | City/State/Zipcode | Phone Number | | Organization | | | | + + + + + | [facility] | [address] [place] [address] | [place] [address] | [phone] | | LABORATORY | [place]. | | [...] + + + + + | Specific [place], UA | 1.006 | 1.002 - 1.030 [...] | [facility] | | | performed at [facility], [address] | | LABORATORY | | | [address] [place], | | | | | [place] [address] | | | + + + + + + + | Specimen | + + | Urine - Urine, Clean | | Catch | + + + + + + + | Performing | Address | City/State/Zipcode | Phone Number | | Organization | | | | + + + + + | [facility] | [address] [facility] | [place] [address] | [phone] | | LABORATORY | [address] | | [...] ERIS PEOPLES Date of : 1960 | [facility] | | Performing Physician: Ana Stokes MD [...] TV A Asaf: 0.40 m/s TV Dec Greenup: 1.66 | | | m/s2 TV Dec Time: 333.82 ms TV E Asaf: 0.55 m/s TV E/A | | | Ratio: 1.38 Mortar Carrier: EVANGELINA Authenticated by: Ana | | | Divya BA Report Date/Time: 01-09-2018 19:9:14 | | + + + + ---------+ | Procedure Note | + ---------+ | Boyd Traylor Results In - 01/09/2018 7:09 PM PDT Patient Name: Joshua PEOPLES | | : 1960Accession: [id number] Physician: Ana Stokes MD | | INDICATIONS [...] (A-L): | | 14.79 ml/m2LAAs A2C: 13.39 [id number] A-L A2C: 31.09 mlLALs A2C: 4.89 cmLAAs A4C: | | 11.87 [id number] A-L A4C: 28.45 mlLALs A4C: 4.20 cmAo Diam: 3.27 cmAV Cusp: 2.20 | | cmLA Diam: 3.69 cmLA/Ao: 1.12 TAPSE: 2.53 cmIVC diameter: 2.00 cmIVC collapse: | | 0.89 cmIVC % collapse: 53.55 %AV maxP.23 mmHgAV meanP.94 mmHgAV Vmax: | | 1.14 m/Mukul Vmean: 0.80 m/Mukul VTI: 27.23 cmAVA Vmax: 3.45 cm2AVA (VTI): 3.20 | | ia2SRXD Vmax: 0.00 cm2/m2AVAI (VTI): 0.00 cm2/m2LVOT maxP.67 [...] A Asaf: | | 0.40 m/sTV Dec Greenup: 1.66 m/s2TV Dec Time: 333.82 msTV E Asaf: 0.55 m/sTV E/A | | Ratio: 1.38 Mortar Carrier: DESIuthenticated by: Ana Stokes MDReport Date/Time: | [...] A Asaf: 0.40 m/s | |TV Dec Greenup: 1.66 m/s2 | |TV Dec Time: 333.82 ms | |TV E Asaf: 0.55 m/s | |TV E/A Ratio: 1.38 | | | |Mortar Carrier: IRENEW | |Authenticated by: Ana Stokes MD [...] | + + + + + | [facility] | [address] | [place] [address] | | + + + + + Ultrasound carotid doppler bilateral (01/09/2018 6:03 AM) + + + | Impressions | Performed At | + + + | 1. Mild bilateral carotid plaquing without significant stenosis. | [facility] | | 2. Antegrade flow in both [...] Jan 09 2018 6:42AM Referring Provider Line: [phone] ID: | | | [id number] | | + + + + + + | Narrative | Performed At | + + + | EXAM: CAROTID DOPPLER ULTRASOUND EXAM DATE: 01/09/2018 06:04 AM. | [facility] | | CLINICAL HISTORY: Acute left-sided weakness. Stroke. | RADIOLOGY | | COMPARISON: None. TECHNIQUE: Real-time sonographic vascular | | | imaging was performed by the blocker and polisher gold wheel through the carotid arterial | | | system with a linear transducer utilizing color-flow, Doppler flow and | | | spectral analysis. Multiple wireless sales representative static images were saved | [...] sonographic vascular imaging was performed by the blocker and polisher gold wheel | | through the carotid arterial system with a linear transducer utilizing color-flow, | | Doppler flow and spectral analysis. Multiple wireless sales representative static images were saved for [...] Jan 09 2018 6:42AM Referring Provider Line: [phone] ID: [id number] | |Vertebral Mid: PSV 45 [...] 09 2018 6:42AM Referring Provider Line: [phone] ID: [id number] | + + + + + + + | Performing | Address | City/State/Zipcode | Phone Number | | Organization | | | | + + + + + | [facility] | [address] | [place] [address] | | + + + + + Magnesium (01/09/2018 4:57 AM) + + + + + | Component | Value | Ref Range | Performed At | + + + + + | MAGNESIUM | 1.8Comment: Testing | 1.7 - 2.4 mg/dL | [facility] | | | performed at [facility], [address] | | LABORATORY | | | [place], | | | | | [place] [address] | | | + + + + + + + | Specimen | + + | Blood | + + + + + + + | Performing | Address | City/State/Zipcode | Phone Number | | Organization | | | | + + + + + | [facility] | [address] [facility] | [place] [address] | [phone] | | LABORATORY | Blvd. | | [...] | [facility] | | | performed at [facility], [address] | | LABORATORY | | | [place], | | | | | [place] [address] | | | + + + + + + + | Specimen | + + | Blood | + + + + + + + | Performing | Address | City/State/Zipcode | Phone Number | | Organization | | | | + + + + + | [facility] | [address] | [place] [address] | [phone] | | LABORATORY | Blvd[address] | | | + + + + + Glycohemoglobin A1c (01/09/2018 4:57 AM) + + + + + | Component | Value | Ref Range | Performed At | + + + + + | HEMOGLOBIN A1C | 6.1 (H)Comment: The | 4.0 - 6.0 % | [facility] | | | [place] Diabetes | | LABORATORY | | | [...] | | | | | performed at [facility], [address] | | | | | [facility], | | | | | [place] [address] | | | + + + + + + + | Specimen | + + | Blood | + + + + + + + | Performing | Address | City/State/Zipcode | Phone Number | | Organization | | | | + + + + + | [facility] | [address] [facility] [address] [facility] | [place] [address] | [phone] | | LABORATORY | Blvd[address] | | [...] [place], | | | | | [place] [address] | | | + + + + + + + | Specimen | + + | Blood | + + + + + + + | Performing | Address | City/State/Zipcode | Phone Number | | Organization | | | | + + + + + | [facility] | [address] | [place] [address] | [phone] | | LABORATORY | [place] | | [...] | [facility] | | | performed at [facility], [address] | | LABORATORY | | | [place], | | | | | [place] [address] | | | + + + + + + + | Specimen | + + | Blood | + + + + + + + | Performing | Address | City/State/Zipcode | Phone Number | | Organization | | | | + + + + + | [facility] | [address] | [place] [address] | [phone] | | LABORATORY | Blvd. | | [...] contrast. A 3D noncontrast | | | curp-vg-whfyjk MRA sequence was acquired through the | [...] - 01/08/2018 9:57 PM PDT ERIS Malave [facility] BRAIN WO AND MRA | | HEAD01/08/2018 9:16 PMHISTORY:57 years. Male. Acute left-sided weakness. Acute embolic | | stroke.TECHNIQUE:Imaging was performed on a 1.5 Mayra MRI system. Multiplanar | | sequences were acquired according to a standard department protocol without contrast. | | A 3D noncontrast wtjg-ho-wmvkow MRA sequence was acquired through the head. [...] | + + + + + | [facility] | [address] | [place] [address] | | + + + + + CT Head Non-Contrast (01/08/2018 1:27 PM) + + + | Impressions | Performed At | + + + | 1. Brain is negative for acute pathology. Electronically | [facility] | | signed by Ranjit Estrella MD [...] [facility] | [address] | [place] [address] | | + + + + + [...] | + + + + + | [facility] | [address] | [place] [address] | | + + + + + Troponin I (01/08/2018 12:45 PM) + + + + + | Component | Value | Ref Range | Performed At | + + + + + | TROPONIN I | <0.04Comment: 0.00 to | 0.00 - 0.10 ng/mL | [facility] | | | 0.10 CONSISTENT WITH | | | | | NORMAL POPULATION0.11 | | | | | to 0.60 CONSISTENT | | | | | WITH INCREASED RISK FOR | | | | | ADVERSE OUTCOMES> | | | | | 0.60 | | | | | CONSISTENT WITH WHO | | | | | CRITERIA FOR ACUTE [place] | | | | | Testing performed at | | | | | [facility], [address], | | | | | [place] [address] | | | + + + + + + + | Specimen | + + | Blood | + + + + + + + | Performing | Address | City/State/Zipcode | Phone Number | | Organization | | | | + + + + + | [facility] | [address] | [place] [address] | | + + + + + [...] 34.3 | 32.0 - 35.5 g/dL | [facility] | + + + + + | RDW SD | 46.8 | 37 - 53 fl | [facility] | + + + + + | PLT | 210 | 150 - 400 K/uL | [facility] | + + + + + | MPV | 7.9 | fl | [facility] | + + + + + [...] 25 | 23 - 32 mmol/L | [facility] | + + + + + | ANION GAP AGAP | 16 | 5 - 20 mmol/L | [facility] | + + + + + | GLUCOSE | 98 | 65 - 99 mg/dL | [facility] | + + + + + | BUN | 10 | 8 - 25 mg/dL | [facility] | + + + + + [...] 7.5 | 6.3 - 8.2 g/dL | [facility] | + + + + + [...] 96 | 35 - 115 U/L | [facility] | + + + + + | AST | 14 | 10 - 45 U/L | [facility] | + + + + + | ALT | 24 | 10 - 65 U/L | [facility] | + + + + + | EGFR | >60Comment: GFR <60: | >60 mL/min/1.73m2 | [facility] | | | CHRONIC KIDNEY DISEASE, [...] (L) | 55 - 400 U/L | [facility] | + + + + + | INR | 0.9Comment: REFERENCE | | [facility] | | | RANGE:0.9 - | [...] 27 | 23 - 32 seconds | [facility] | + + + + + | MMB | 0.9 | 0.5 - 3.6 ng/mL | [facility] | + + + + + | CK-MB Index | 1.7Comment: CK INDEX | | [facility] | | | INTERPRETATION: | | [...] | | | | | performed at [facility], [address] [place], | | | | | [place] [address] | | | + + + + + + + + + + | Performing | Address | City/State/Zipcode | Phone Number | | Organization | | | | + + + + + | [facility] | [address] | [facility] [address] | | + + + + + [...] + + + + | Calculated P Sumner | 34 | degrees | [facility] | + + + + + | Calculated R Sumner | -31 | degrees | [facility] | + + + + + | Calculated T [place] | 32 | degrees | [facility] | + + + + + | Diagnosis | Normal sinus rhythmLeft | | [facility] | | | axis deviationInferior | [...] -COMPUTER (500), | | | | | editorial writer Nguyễn Garcia | | | | | Kleber ([id number]) on 01/09/2018 | | | | | 1:16:57 AM | | | + + + + + + + + + + | Performing | Address | City/State/Zipcode | Phone Number | | Organization | | | | + + + + + | [facility] | [address] | [place] [address] | | + + + + + [...] Coronary atherosclerosis of unspecified type of vessel, hoonah or graft | + + | Leukocytosis [...]
--- OUTSIDE RECORDS SUMMARY | ~2018-04-03 | XMS | Encounter Summary ---
Demographics + + + | Address | [address] | | | [place] [address] | + + + | Home Phone | | + + + | Preferred Language | Unknown | + + + | Marital Status | | + + + | Jew Affiliation | 1013 | + + + | Race | Unknown | + + + | Ethnic Group | Unknown | + + + Author + + + | Author | [facility] | | | and [place] | + + + | Organization | [facility] | | | and [place] | + + + | Address | Unknown | + + + | Phone | Unavailable | + + + Support + + + + + | Name | Relationship | Address | Phone | + + + + + | Karol oH | ECON | [place] | | | | | [address] | | + + + + + Care Team Providers + +------+ + | Care Manager Market Intelligence Name | Role | Phone | + [...] [place] | | | | | [phone] | [place] [address] | | +--------+ + + + + [...] 2017 | Visit | | MD Muller [facility] | | | | | | [place] | | | | | | [address] | | | | | | | [...]
--- OUTSIDE RECORDS SUMMARY | ~2018-04-03 | XMS | Encounter Summary ---
Demographics + + + | Address | [address] | | | [place] [address] | + + + | Home Phone | | + + + | Preferred Language | Unknown | + + + | Marital Status | | + + + | Jain Affiliation | 1013 | + + + | Race | Unknown | + + + | Ethnic Group | Unknown | + + + Author + + + | Author | [facility] | | | and [place] | + + + | Organization | [facility] | | | and [place] | + + + | Address | Unknown | + + + | Phone | Unavailable | + + + Support + + + + + | Name | Relationship | Address | Phone | + + + + + | Karol Ho | ECON | [place] | | | | | [address] | | + + + + + Care Team Providers + +------+ + | Care Master In Chancery Name | Role | Phone | + [...] 2018 | | NEUROLOGY CRISTINA | [address] [facility] | | | | | [address] | [place] | | | | | [place] | [address] | | | | | [address] | | | | | | [phone] | | | +--------+ + + + [...] | 2017 | Visit | | [address] [facility] | | | | | | [place] | | | | | | [address] | | | | | | | | +--------+---------+ + + + as of this encounter Visit Diagnoses Not on filein this encounter"
--- OUTSIDE RECORDS SUMMARY | ~2018-04-03 | XMS | Encounter Summary ---
Demographics + + + | Address | [address] | | | [place] [address] | + + + | Home Phone | | + + + | Preferred Language | Unknown | + + + | Marital Status | | + + + | Adventism Affiliation | 1013 | + + + | Race | Unknown | + + + | Ethnic Group | Unknown | + + + Author + + + | Author | [facility] | | | and [place] | + + + | Organization | [facility] | | | and [place] | + + + | Address | Unknown | + + + | Phone | Unavailable | + + + Support + + + + + | Name | Relationship | Address | Phone | + + + + + | Karol Ho | ECON | [place] | | | | | [address] | | + + + + + Care Team Providers + +------+ + | Care Billing Supervisor Name | Role | Phone | [...] [place] | | | | | [phone] | [place] [address] | | +--------+ + + + + [...] [place] | | | | | | [address] | | | | | | | [...]
--- OUTSIDE RECORDS SUMMARY | ~2018-04-03 | XMS | Encounter Summary ---
Demographics + + + | Address | [address] | | | [place] [address] | + + + | Home Phone | | + + + | Preferred Language | Unknown | + + + | Marital Status | | + + + | Taoist Affiliation | 1013 | + + + | Race | Unknown | + + + | Ethnic Group | Unknown | + + + Author + + + | Author | [facility] | | | and [place] | + + + | Organization | [facility] | | | and [place] | + + + | Address | Unknown | + + + | Phone | Unavailable | + + + Support + + + + + | Name | Relationship | Address | Phone | + + + + + | Karol Ho | ECON | [place] | | | | | [address] | | + + + + + Care Team Providers + +------+ + | Care Fire [employer] Name | Role | Phone | + [...] [place] | | | | | [phone] | [place] [address] | | +--------+ + + + + [...] 2017 | Visit | | MD Muller [facility] | | | | | | [place] | | | | | | [address] | | | | | | | [...]
[~2018-04-03 02:44] MED LIST changes: +ASPIRIN81 MG PO
--- OUTSIDE RECORDS SUMMARY | 2018-04-03 02:50 | XMS ---
PreManage Notification: ERIS PEOPLES Security Senior Materials Analyst Events No recent Security Events currently on file CRITERIA MET - 6 ED Visits in 6 Months - [facility] - 2 Visits in 30 Days CARE PROVIDERS PILI VALDIVIA Nurse Practitioner: Family 02/04/2018-Current AMOS PHONE: [phone] PAUL SÁNCHEZ Internal Medicine 03/13/2018-Current CHRIS PHONE: [phone] Lara has no Care Guidelines for this patient. Care History Medical/Surgical 02/04/2018 [facility] - Patient is currently established with [facility]. If patient is seen in the ED during business hours. Please contact CHWs at [facility] at Ext [phone]. Care Recommendation: This patient has had 5 or more Emergency Department visits in the last 12 months.\T\nbsp; Patient requires education on the scope and purpose of the ED as an acute care provider not a Primary Care Provider and should not be utilized for chronic conditions.\T\nbsp; If patient returns to ED please contact Community Health WorkerBonnie at [phone]. These are guidelines and the provider should exercise clinical judgment when providing care. Jhonathan [facility] (12 MO.) [facility] 6 [facility] TOTAL 8 NOTE: Visits indicate total known visits. ED/UCC VISIT TRACKING (12 MO.) 04/03/2018 02:44 [facility] [place] TYPE: Emergency COMPLAINT: - HEADACHE,CHEST PAIN 03/12/2018 20:18 [facility] [place] TYPE: Emergency COMPLAINT: - CHEST PAIN DIAGNOSES: - Chest pain, unspecified - Old myocardial infarction - Other group home (current) drug therapy - Allergy status to narcotic agent status - Allergy status to penicillin - Essential (primary) hypertension - Personal history of transient ischemic attack (TIA), and cerebral infarction without residual deficits - Nicotine dependence, unspecified, uncomplicated 03/10/2018 06:14 [facility] [place] TYPE: Emergency COMPLAINT: - HEADACHE,CHEST PAIN DIAGNOSES: - Allergy status to narcotic agent status - Anesthesia of skin - Atherosclerotic heart disease of [place] coronary artery without angina pectoris - Allergy status to penicillin - Other terminal computer operator (current) drug therapy - Headache - Essential (primary) hypertension - Dysarthria and anarthria - Nicotine dependence, unspecified, uncomplicated 02/02/2018 08:41 [facility] [place] TYPE: Emergency COMPLAINT: - FALL/HEADACHE DIAGNOSES: - Urinary tract infection, site not specified - Other group home (current) drug therapy - Dizziness and giddiness - Nicotine dependence, unspecified, uncomplicated - Allergy status to narcotic agent status - Allergy status to penicillin - Essential (primary) hypertension 01/08/2018 12:34 [facility] [place] TYPE: Emergency DIAGNOSES: - Cerebral infarction, unspecified - Headache - Other specified disorders of muscle - chest pain - Extremity Weakness 01/05/2018 07:59 [facility] [place] TYPE: Emergency COMPLAINT: - CHEST PAIN DIAGNOSES: - Allergy status to penicillin - Allergy status to other drugs, medicaments and biological substances status - Type 2 diabetes mellitus without complications - Nicotine dependence, unspecified, uncomplicated - Allergy status to narcotic agent status - Essential (primary) hypertension - Other chest pain - Other terminal computer operator (current) drug therapy 05/25/2017 12:44 [facility] [place] TYPE: Emergency DIAGNOSES: - 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 - STEMI 05/25/2017 11:26 [facility] TYPE: Emergency COMPLAINT: - CHEST PAIN DIAGNOSES: - Essential (primary) hypertension - ST elevation (STEMI) myocardial infarction involving other coronary artery of inferior wall - Allergy status to narcotic agent status - Other specified postprocedural states - Allergy status to penicillin - OTHER SPECIFIED POSTPROCEDURAL STATES - Precordial pain - Type 2 diabetes mellitus without complications - Nicotine dependence, unspecified, uncomplicated - longterm (current) use of oral hypoglycemic drugs - 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
[2018-04-03] MEDS ORDERED: TRAMADOL HCL50 MG PO (03:41)
--- NOTE | 2018-04-03 14:52 | EKG ---
[facility] [address] [facility] [address] [place] [address] Signed Normal sinus rhythm Cannot rule out Inferior infarct (cited on or before 12-MAR-2018) Abnormal ECG When compared with ECG of 12-MAR-2018 20:19, Questionable change in initial forces of Inferior leads Confirmed by PAUL SÁNCHEZ MD ([id number]) on 04/03/2018 2:52:08 PM Electronically Signed By: PAUL SÁNCHEZ MD 04/03/18 1452 PATIENT NAME: RICHELLEERIS MATT Electrocardiogram DATE OF : 58 PHYSICIAN: PAUL SÁNCHEZ MD REPORT #: [id number] REPORT IS CONFIDENTIAL AND NOT TO BE RELEASED WITHOUT AUTHORIZATION
== END 2018-04-03 04:00 | disposition home or self-care (01) ==
LOC: ED 02:44
DX: R07.89 Other chest pain (principal); R51 Headache; I10 Essential (primary) hypertension; Z86.73 Personal history of transient ischemic attack (TIA), and cerebral infarction without residual deficits; I25.2 Old myocardial infarction; F17.200 Nicotine dependence, unspecified, uncomplicated; Z88.0 Allergy status to penicillin; Z88.5 Allergy status to narcotic agent; Z79.899 Other long term (current) drug therapy; Z79.82 Long term (current) use of aspirin
CPT/HCPCS: 71045; 80053; 84484; 85025; 93005; 93010; 96374; 99285; J1885

== ENCOUNTER 2021-03-24 18:40 | Emergency (ER) | payer OTHER ==
[~2021-03-24] VITALS: Ht 172.7 cm; Wt 104.3 kg
[~2021-03-24 18:40] MED LIST changes: +TRAMADOL HCL50 MG PO
[2021-03-24] MEDS ORDERED: LISINOPRIL-HCT1 EAC1 PO (19:02)
[2021-03-24] MEDS ORDERED: METFORMIN HCL500 M2 PO (19:03)
[2021-03-24] MEDS ORDERED: NITROSTAT0.4 MG SL (19:05)
--- NOTE | 2021-03-24 21:47 | EKG ---
[facility] [address] [facility] [place] [address] Signed Normal sinus rhythm Left axis deviation Inferior infarct (cited on or before 12-MAR-2018) Abnormal ECG When compared with ECG of 03-APR-2018 02:46, Questionable change in initial forces of Inferior leads Confirmed by MARLENI ABARCA MD ([id number]) on 03/24/2021 9:47:42 PM Electronically Signed By: MARLENI ABARCA MD 03/24/21 2147 PATIENT NAME: ERIS PEOPLES Electrocardiogram DATE OF : 58 PHYSICIAN: MARLENI ABARCA MD REPORT #: [id number] REPORT IS CONFIDENTIAL AND NOT TO BE RELEASED WITHOUT AUTHORIZATION
== END 2021-03-24 22:22 | disposition home or self-care (01) ==
LOC: ED 18:40
DX: R07.9 Chest pain, unspecified (principal); I10 Essential (primary) hypertension; E11.9 Type 2 diabetes mellitus without complications; I25.2 Old myocardial infarction; F17.210 Nicotine dependence, cigarettes, uncomplicated; Z88.0 Allergy status to penicillin; Z88.5 Allergy status to narcotic agent; Z79.899 Other long term (current) drug therapy; Z79.82 Long term (current) use of aspirin; Z79.84 Long term (current) use of oral hypoglycemic drugs
CPT/HCPCS: 71045; 80053; 83735; 84484; 85025; 93005; 93010; 99285-25

== ENCOUNTER 2025-04-06 23:42 | Emergency (ER) | payer MEDICARE ==
[~2025-04-06] VITALS: Ht 172.7 cm; Wt 104.0 kg
[~2025-04-06 23:42] MED LIST changes: +METFORMIN HCL500 M2 PO; +NITROSTAT0.4 MG SL
[2025-04-06] MEDS ORDERED: fentaNYL citrate 100 MCG/2 ML VIAL IV ONE (23:45)
[2025-04-06] MEDS ORDERED: ASPIRIN 81 MG CHEW PO ONE (23:45)
[2025-04-06] MEDS ORDERED: NITROGLYCERIN PACKET TOP ONE (23:45)
[2025-04-07 00:03] LABS: BASOPHILS 0.9 % (0.2-1.2); EOSINOPHILS 1.4 % (0.8-7.0); LYMPHOCYTES 39.4 % (21.8-53.1); MCH 32.7 PG (25.7-32.2); MCHC 35.3 g/dL (32.3-36.5); MCV 92.6 fL (79.0-92.2); MONOCYTES 6.2 % (5.3-12.2); NEUTROPHILS 51.5 % (34.0-67.9); RBC 5.57 M/uL (4.63-6.08)
[2025-04-07 00:19] LABS: SMEAR REVIEW BLOOD SEE COMMENTS
[2025-04-07 00:32] LABS: INR 0.86 (0.80-1.30); PROTIME 11.2 Sec (11.2-14.2)
[2025-04-07 00:44] LABS: AST (SGOT) 17.0 U/L (15-37); GLOMERULAR FILTRATION RATE,EST 97.0 mL/min (>60); PROTEIN, TOTAL 6.9 g/dL (6.4-8.2); UREA NITROGEN 14.0 mg/dL (7-18)
[2025-04-07 01:13] LABS: ALT (SGPT) 24.0 U/L (14-59)
[2025-04-07] MEDS ORDERED: MAGNESIUM SULFATE 4 GM/100 ML BAG IV ONE (01:30)
[2025-04-07] MEDS ORDERED: SODIUM CHLORIDE 0.9% 500 ML IV PRN (01:30)
[2025-04-07] MEDS ORDERED: INSULIN LISPRO 100 UNIT/ML ML IV ONE (01:30)
[2025-04-07] MEDS ORDERED: CYCLOBENZAPRINE10 MG PO (01:51)
[2025-04-07] MEDS ORDERED: MAGNESIUM OXID400 M1 PO (01:51)
[2025-04-07] MEDS ORDERED: CYCLOBENZAPRINE HCL 10 MG HOME.PACK PO ONE (02:00)
[2025-04-07] MEDS ORDERED: IBLOOD GLUCOSE TEST STRIP 1 EA TEST VI ONE (02:30)
[2025-04-07 02:41] VITALS: BP 126/62
--- NOTE | 2025-04-07 07:29 | EKG ---
[facility] [address] [facility] [place] [address] Signed Sinus tachycardia Left axis deviation Inferior infarct (cited on or before 12-MAR-2018) Anterior infarct (cited on or before 12-MAR-2018) Abnormal ECG When compared with ECG of 06-NOV-2023 11:56, No significant change was found Confirmed by JANIS PARISI MD ([id number]) on 04/07/2025 7:29:34 AM Electronically Signed By: JANIS PARISI 04/07/25 0729 PATIENT NAME: ERIS PEOPLES Electrocardiogram DATE OF : 58 PHYSICIAN: JANIS PARISI REPORT #: [id number] REPORT IS CONFIDENTIAL AND NOT TO BE RELEASED WITHOUT AUTHORIZATION
== END 2025-04-07 02:42 | disposition home or self-care (01) ==
LOC: ED 23:42
PROVIDERS: Family Medicine
DX: R07.89 Other chest pain (principal); E83.42 Hypomagnesemia; E11.65 Type 2 diabetes mellitus with hyperglycemia; I10 Essential (primary) hypertension; I25.2 Old myocardial infarction; F17.200 Nicotine dependence, unspecified, uncomplicated; Z88.0 Allergy status to penicillin; Z88.5 Allergy status to narcotic agent
CPT/HCPCS: 36415; 71045; 80053; 82010; 82803; 83735; 83880; 84484; 85025; 85060; 85379; 85610; 93005; 93010; A9270; J1815; J3475; J7040

== ENCOUNTER 2025-05-21 06:46 | Emergency (ER) | payer MEDICARE ==
[~2025-05-21] VITALS: Ht 172.7 cm; Wt 104.0 kg
[~2025-05-21 06:46] MED LIST changes: +CYCLOBENZAPRINE10 MG PO; +MAGNESIUM OXID400 M1 PO
[2025-05-21] MEDS ORDERED: ANTIFUNGAL113 GM TOP (07:43)
[2025-05-21 07:59] VITALS: BP 145/78
== END 2025-05-21 07:56 | disposition home or self-care (01) ==
LOC: ED 06:46
DX: B35.3 Tinea pedis (principal); I10 Essential (primary) hypertension; E11.9 Type 2 diabetes mellitus without complications; F17.200 Nicotine dependence, unspecified, uncomplicated; Z88.0 Allergy status to penicillin; Z79.899 Other long term (current) drug therapy
CPT/HCPCS: 73630; 99283

== ENCOUNTER 2025-06-01 06:43 | Emergency (ER) | payer MEDICARE ==
[~2025-06-01] VITALS: Ht 172.7 cm; Wt 103.4 kg
[~2025-06-01 06:43] MED LIST changes: +ANTIFUNGAL113 GM TOP
[2025-06-01] MEDS ORDERED: CLEOCIN HCL300 MG PO (07:32)
[2025-06-01 07:39] VITALS: BP 153/83
== END 2025-06-01 07:39 | disposition home or self-care (01) ==
LOC: ED 06:43
DX: L03.116 Cellulitis of left lower limb (principal); L03.115 Cellulitis of right lower limb; I10 Essential (primary) hypertension; E11.9 Type 2 diabetes mellitus without complications; F17.200 Nicotine dependence, unspecified, uncomplicated; Z79.899 Other long term (current) drug therapy; Z88.0 Allergy status to penicillin; Z88.5 Allergy status to narcotic agent
CPT/HCPCS: 99283

== ENCOUNTER 2025-06-24 08:34 | Emergency (ER) | payer MEDICARE ==
[~2025-06-24] VITALS: Ht 172.7 cm; Wt 101.3 kg
[~2025-06-24 08:34] MED LIST changes: +CLEOCIN HCL300 MG PO
[2025-06-24] MEDS ORDERED: NITROGLYCERIN 0.4 MG SUBL SL PRN (08:45)
[2025-06-24] MEDS ORDERED: ASPIRIN 81 MG CHEW PO ONE (08:45)
[2025-06-24 08:52] LABS: BASOPHILS 0.7 % (0.2-1.2); EOSINOPHILS 1.8 % (0.8-7.0); LYMPHOCYTES 32.2 % (21.8-53.1); MCH 31.7 PG (25.7-32.2); MCHC 33.9 g/dL (32.3-36.5); MCV 93.4 fL (79.0-92.2); MONOCYTES 6.6 % (5.3-12.2); NEUTROPHILS 58.3 % (34.0-67.9); RBC 5.75 M/uL (4.63-6.08)
[2025-06-24 09:23] LABS: ALT (SGPT) 21.0 U/L (14-59); AST (SGOT) 5.0 U/L (15-37); GLOMERULAR FILTRATION RATE,EST 94.0 mL/min (>60); PROTEIN, TOTAL 7.6 g/dL (6.4-8.2); UREA NITROGEN 17.0 mg/dL (7-18)
[2025-06-24] MEDS ORDERED: IBUPROFEN 600 MG TAB PO ONE (09:45)
[2025-06-24 12:12] VITALS: BP 149/90
--- NOTE | 2025-06-26 21:42 | EKG ---
[facility] [address] [place] [id number] Signed Sinus tachycardia with fusion complexes Minimal voltage criteria for LVH, may be normal variant ( R in aVL ) Inferior infarct (cited on or before 12-MAR-2018) Anterior infarct (cited on or before 12-MAR-2018) Abnormal ECG When compared with ECG of 06-APR-2025 23:48, fusion complexes are now present Confirmed by Gabrielle Still MD () on 06/26/2025 9:42:27 PM Electronically Signed By: GABRIELLE STILL MD 06/26/25 214 PATIENT NAME: ERIS PEOPLES Electrocardiogram DATE OF : 58 PHYSICIAN: GABRIELLE STILL MD REPORT #: [id number] REPORT IS CONFIDENTIAL AND NOT TO BE RELEASED WITHOUT AUTHORIZATION
--- NOTE | 2025-06-26 21:43 | EKG ---
[facility] [address] [place] [id number] Signed Normal sinus rhythm Minimal voltage criteria for LVH, may be normal variant ( R in aVL ) Inferior infarct (cited on or before 12-MAR-2018) Anterior infarct (cited on or before 12-MAR-2018) Abnormal ECG When compared with ECG of 24-JUN-2025 08:39, fusion complexes are no longer present Confirmed by Gabrielle Still MD () on 06/26/2025 9:43:08 PM Electronically Signed By: GABRIELLE STILL MD 06/26/25 2143 PATIENT NAME: ERIS PEOPLES Electrocardiogram DATE OF : 58 PHYSICIAN: GABRIELLE STILL MD REPORT #: [id number] REPORT IS CONFIDENTIAL AND NOT TO BE RELEASED WITHOUT AUTHORIZATION
== END 2025-06-24 12:12 | disposition home or self-care (01) ==
LOC: ED 08:34
PROVIDERS: Emergency Medicine
DX: R07.9 Chest pain, unspecified (principal); E11.65 Type 2 diabetes mellitus with hyperglycemia; I10 Essential (primary) hypertension; F17.200 Nicotine dependence, unspecified, uncomplicated; Z88.0 Allergy status to penicillin; Z88.5 Allergy status to narcotic agent
CPT/HCPCS: 36415; 71045; 80053; 83735; 83880; 84484; 85025; 93005; 93010; 99285-25; A9270